=== PATIENT | female | born 2005 | race Caucasian/White ===

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

== ENCOUNTER 2023-01-31 09:32 | Outpatient (CLI) | payer OTHER, SELFPAY ==
[2023-01-31 14:59] LABS: Chlamydia DNA Amplified* NOT DETECTED (No Detected); GC DNA Amplified* NOT DETECTED (No Detected)
== END 2023-01-31 09:33 | disposition home or self-care (01) ==
PROVIDERS: PCP Nurse Practitioner Family; Visit Provider Registered Nurse
DX: Z34.91 Encounter for supervision of normal pregnancy, unspecified, first trimester (principal); Z3A.08 8 weeks gestation of pregnancy
CPT/HCPCS: 76817; 86592; 86703; 86762; 86787; 86803; 86850; 86900; 86901; 87086; 87340; 87491; 87591

== ENCOUNTER 2023-03-26 15:51 | Outpatient (CLI) | payer OTHER, SELFPAY ==
--- NOTE | 2023-03-26 16:00 | CRLHL7_ITS ---
For Patients: As a result of the Cures Act, medical imaging exams and procedure reports are released immediately into your electronic medical record. You may view this report before your referring provider. If you have questions, please contact your health care provider. INDICATION: INTRAUTERINE SYNECHIAE COMPARISON: 01/31/2023 TECHNIQUE: Real-time mast-scale imaging of the pelvis was performed. FINDINGS: Sonographic imaging demonstrates a single living intrauterine gestation. The embryo demonstrates a regular cardiac rate measuring 154 beats per minute. position transverse. Cervix is closed measuring 3.8 cm. Placenta is posterior. The estimated weight 128 grams, estimated weight 23rd percentile. BPD 32nd percentile. HC 27th percentile. AC 31st percentile. FL 44th percentile. IMPRESSION: Sonographic gestational age 15 weeks 4 days and sonographic due date of 09/13/2023. Good correlation with dates. Normal amniotic fluid without synechiae. Dictated by Nash Girard MD @ 03/27/2023 9:56:42 AM (Electronically Signed)
== END 2023-03-26 15:52 | disposition home or self-care (01) ==
PROVIDERS: PCP Nurse Practitioner Family; Visit Provider Obstetrics & Gynecology
DX: Z34.92 Encounter for supervision of normal pregnancy, unspecified, second trimester (principal); N85.6 Intrauterine synechiae; Z3A.15 15 weeks gestation of pregnancy
CPT/HCPCS: 76815; 76817

== ENCOUNTER 2023-05-21 12:12 | Outpatient (CLI) | payer OTHER, SELFPAY ==
--- NOTE | 2023-05-21 12:15 | CRLHL7_ITS ---
For Patients: As a result of the Century Cures Act, medical imaging exams and procedure reports are released immediately into your electronic medical record. You may view this report before your referring provider. If you have questions, please contact your health care provider. INDICATION: Small for gestational age. TECHNIQUE: Ultrasound OB pelvis transabdominal. Real-time mast-scale imaging of the fetus was performed without stress testing. COMPARISON: None. FINDINGS: Intrauterine gestation: Present. heart rate: 149 BPM. Presentation: Breech. Placenta: Posterior. Amniotic fluid volume single deepest pocket 3.4 cm 2/2. motion 2/2. tone 2/2. breathing movements 2/2. Umbilical artery: Normal blood flow with a systolic to diastolic ratio of 3.8 p.m. IMPRESSION: Single viable intrauterine with a biophysical profile 01/28. Dictated by Checo Araiza MD @ 05/23/2023 8:29:24 AM (Electronically Signed)
== END 2023-05-21 12:13 | disposition home or self-care (01) ==
LOC: US 12:13
PROVIDERS: PCP Nurse Practitioner Family; Visit Provider Obstetrics & Gynecology
DX: O36.5990 Maternal care for other known or suspected poor fetal growth, unspecified trimester, not applicable or unspecified (principal)
CPT/HCPCS: 76819; 76820; 86644; 86645

== ENCOUNTER 2023-05-27 08:30 | Outpatient (CLI) | payer OTHER, SELFPAY ==
--- NOTE | 2023-05-27 08:45 | CRLHL7_ITS ---
For Patients: As a result of the Century Cures Act, medical imaging exams and procedure reports are released immediately into your electronic medical record. You may view this report before your referring provider. If you have questions, please contact your health care provider. INDICATION: IUGR COMPARISON: 05/21/2023 TECHNIQUE: Real time mast scale imaging of the fetus was performed as well as color Doppler and spectral Doppler analysis of the umbilical artery. Without non-stress testing. FINDINGS: Sonographic imaging demonstrates a single living intrauterine gestation. Fetus demonstrates a regular cardiac rate of 135 beats per minute. Fetus has a breech position. The umbilical artery demonstrates adequate diastolic blood flow. The S/D ratio measures 3.5. The amniotic fluid volume appears normal and there is a single deepest pocket measurement of 4.5 cm. The fetus was active. Absent breathing movements. There was normal flexion and extension of the trunk and extremities. IMPRESSION: Biophysical profile 11/28. Dictated by Nash Girard MD @ 05/29/2023 10:48:49 AM (Electronically Signed)
== END 2023-05-27 08:31 | disposition home or self-care (01) ==
PROVIDERS: PCP Nurse Practitioner Family; Visit Provider Obstetrics & Gynecology
DX: O36.5990 Maternal care for other known or suspected poor fetal growth, unspecified trimester, not applicable or unspecified (principal)
CPT/HCPCS: 76819; 76820

== ENCOUNTER 2023-05-30 10:51 | Emergency (ER) | payer OTHER, SELFPAY ==
[2023-05-30] VITALS (10 sets, daily range): BP systolic 118–138; BP diastolic 79–90; PULSE 85–95; RESP 20; TEMP 36.8; O2SAT 96–100; BMI 40.2
--- NOTE | 2023-05-30 11:36 | ED.CHESTPAIN ---
HPI - Chest Pain General Time Seen by Provider: 11:37 Date Seen: 05/30/23 Chief Complaint: Chest Pain Stated Complaint: chest pain- 25 weeks preg. Time Seen by Provider: 05/30/23 11:19 Source: patient, family and RN notes reviewed Mode of arrival: ambulatory Limitations: no limitations History of Present Illness HPI narrative: 18-year-old at 25 we who presents today with upper chest pain. She describes this as pressure in her upper chest, started last night and has been consistent. No shortness of breath, does not feel worse with breathing, no nausea, vomiting, or diarrhea. Denies fevers, chills, cough, runny nose. Has not taken anything for this. Related Data Home Medications Medication Instructions Recorded Confirmed docosahexaenoic acid 200 mg mg PO 01/31/23 05/27/23 capsule ( DHA) aspirin 81 mg chewable tablet 81 mg PO QDAY 03/26/23 05/30/23 Previous Rx's Medication Instructions Recorded citalopram 20 mg tablet 20 mg PO QDAY #90 tabs 01/31/23 hydroxyzine pamoate 25 mg capsule 25 - 50 mg (1 - 2 x 25 mg) PO QHS 05/02/23 #60 caps Allergies Allergy/AdvReac Type Severity Reaction Status Date / Time No Known Drug Allergies Allergy Verified 05/27/23 09:55 [facility] Medical History (Updated 05/30/23 @ 13:06 by Naseem Winter MD) Postural lightheadedness ?R42 - Dizziness and giddiness (ICD-10) Pilonidal cyst with abscess ?L05.01 - Pilonidal cyst with abscess (ICD-10) Otalgia ?H92.09 - Otalgia, unspecified ear (ICD-10) Lightheadedness ?R42 - Dizziness and giddiness (ICD-10) Fever ?R50.9 - Fever, unspecified (ICD-10) Constipation (03/30/12) ?K59.00 - Constipation, unspecified (ICD-10) Bilateral patent pressure equalization tubes (03/30/12) ?Z96.22 - Myringotomy tube(s) status (ICD-10) Paronychia Surgical History (Updated 10/29/22 @ 16:34 by Thea Sullivan APRN, L[employer]ER ROOM SUPERVISOR) History of tonsillectomy ?Z90.89 - Acquired absence of other organs (ICD-10) History of removal of cyst ?Z98.890 - Other specified postprocedural states (ICD-10) History of adenectomy ?Z90.89 - Acquired absence of other organs (ICD-10) History of ear surgery ?Z98.890 - Other specified postprocedural states (ICD-10) Family History (Updated 12/06/22 @ 10:48 by Sri Morse) Father Diabetes High blood pressure Alcohol dependence High cholesterol Maternal Grandmother Diabetes Depression Liver disease Mother High blood pressure Depression Paternal Grandfather Alcohol dependence Myocardial infarction Paternal Grandmother Alcohol dependence Maternal Grandfather Alcohol dependence Social History (Updated 10/29/22 @ 16:23 by Thea Sullvian APRN, CNP) Narrative: Single, SO. No children. Non-smoker. No alcohol. No illicit drug uses. Works at [employer] in [place]. Smoking Status: Never smoker Second hand tobacco smoke exposure: No How often do you have a drink containing alcohol: never AUDIT-C Alcohol total score: 0 Non-prescribed substance use: denies use Caffeine: No Little interest or pleasure in doing things: not at all Feeling down, depressed, or hopeless: several days Are you using contraception or practicing any form of control: Yes Exam Narrative Exam Narrative: General: Well-developed and well-nourished, no acute distress Head: Atraumatic and normocephalic Eyes: Pupils are equal reactive, extraocular motions intact, conjunctiva clear ENT: External nose and ears are normal, posterior pharynx without erythema or exudate Neck: No midline cervical tenderness, full spontaneous range of motion the neck, trachea midline, no adenopathy Heart: Regular rate and rhythm no murmurs or thrills Lungs: Clear to auscultation bilaterally without wheezes or crackles Abdomen: Soft, nontender, gravid, with active bowel sounds Musculoskeletal: No tenderness, deformity, or edema Neurologic: Awake, alert, and oriented x3, no gross focal neurologic deficits, cranial nerves intact as tested Psych: Mood and affect are appropriate Skin: No rashes Const Vital Signs, click to edit/add: Vital Signs - 24 hr 05/30/23 10:57 Temperature 98.3 F Pulse Rate [Left Pulse Oximeter] 95 Respiratory Rate 20 Blood Pressure [Left Upper Arm] 138/82 Pulse Oximetry 100 Oxygen Delivery Method Room Air Course Course ED Course: Patient seen and examined, prior records reviewed. Patient presents with pressure in the upper chest starting yesterday. Consider CT PE protocol but patient has no shortness of breath, pain is not pleuritic, finally stable, clinically pulmonary embolism is unlikely but cannot PERC out and so D-dimer is ordered. Given constant pain and location, acute coronary syndrome is unlikely. Consider abdominal source such as pancreatitis or acute cholecystitis but no epigastric or right upper quadrant pain or tenderness. Symptoms are most likely related to esophageal cause, Maalox is ordered. Also order CBC and BMP. Reevaluation(s) Time of Reevaluation #1: 13:04 Reevaluation #1: Labs ordered and independently interpreted by me with negative D-dimer, normal CBC, normal basic metabolic panel. EKG independently interpreted by me normal. Troponin is negative. Patient is stable for discharge with outpatient follow-up. Vital Signs Vital signs: Initial Vital Signs Temperature 98.3 F 05/30/23 10:57 Temperature Source Temporal Artery Scan 05/30/23 10:57 Pulse Rate 95 05/30/23 10:57 Pulse Rhythm Regular 05/30/23 10:57 Respiratory Rate 20 05/30/23 10:57 Blood Pressure 138/82 05/30/23 10:57 Blood Pressure Mean 100 05/30/23 10:57 Blood Pressure Position Sitting 05/30/23 10:57 Pulse Oximetry 100 05/30/23 10:57 Oxygen Delivery Method Room Air 05/30/23 10:57 Vital Signs Temperature 98.3 F 05/30/23 10:57 Pulse Rate 95 05/30/23 10:57 Respiratory Rate 20 05/30/23 10:57 Blood Pressure 138/82 05/30/23 10:57 Pulse Oximetry 100 05/30/23 10:57 Oxygen Delivery Method Room Air 05/30/23 10:57 Temperature 98.3 F 05/30/23 10:57 Pulse Rate 95 05/30/23 10:57 Respiratory Rate 20 05/30/23 10:57 Blood Pressure 138/82 05/30/23 10:57 Pulse Oximetry 100 05/30/23 10:57 Oxygen Delivery Method Room Air 05/30/23 10:57 Medications Administered Medications: Discontinued Medications Generic Name Dose Route Start Last Admin Trade Name Freq PRN Reason Stop Dose Admin Lidocaine/Aluminum/Magnesium/Simeth 15 ml 05/30/23 11:39 05/30/23 12:01 Mag Hydrox/Aluminum Hyd/Simeth 30 Ml Oral.Susp PO 05/30/23 11:40 15 ml ONCE ONE Administration MDM - Chest Pain Lab Data Labs: Lab Results 05/30/23 Range/Units 11:56 WBC 8.62 (4.50-11.00) K/uL RBC 4.39 (4.00-5.20) m/uL Hgb 13.1 (12.0-16.0) gm/dL Hct 39.2 (33.0-51.0) % MCV 89 (80-100) fL MCH 30 (26-34) pg MCHC 33 (32-36) gm/dL RDW Coeff of Justa 12.8 (11.5-15.5) % Plt Count 297 (140-440) K/uL Neut % (Auto) 72.8 H (42.0-72.0) % Lymph % (Auto) 19.8 L (20-44) % Crook % (Auto) 5.2 (0.0-11.0) % Eos % (Auto) 0.7 (0.0-7.0) % Baso % (Auto) 0.1 (0.0-3.0) % Neut # (Auto) 6.30 (1.7-7.0) K/uL Lymph # (Auto) 1.70 (0.90-2.90) K/uL Crook # (Auto) 0.40 (0.00-0.90) K/UL Eos # (Auto) 0.06 (0.00-0.50) K/uL Baso # (Auto) 0.01 (0.00-0.30) K/uL Abs Immat Gran (auto) 0.12 (0.00-0.30) K/uL Imm/Tot Granulo (auto) 1.4 % D-Dimer Quant (PE/DVT) 0.42 (0.00-0.50) ug/ml Sodium 134 L (135-149) mmol/L Potassium 3.8 (3.6-5.1) mmol/L Chloride 104 (96-114) mmol/L Carbon Dioxide 21 (20-32) mmol/L Anion Gap 9 (7-15) mEq/L BUN 9 (5-24) mg/dL Creatinine 0.4 L (0.5-1.5) mg/dL Estimated Creat Clear 193.73 Estimated GFR 145 ml/min Glucose 71 (60-115) mg/dL Calcium 9.7 (8.4-10.6) mg/dL Magnesium 1.9 (1.5-2.6) mg/dL ECG Data Attestation: I personally reviewed and interpreted this ECG as follows: ECG interpretation date: 05/30/23 ECG interpretation time: 11:04 Prior ECG tracings: not available for review Interpretation: Normal sinus rhythm rate 77, no acute ST elevations or depressions, normal intervals, normal axis, IA 112 Discharge Plan Discharge Clinical Impression: Atypical chest pain Patient Disposition: Home, Self-Care Condition: Stable Instructions: Noncardiac Chest Pain (ED) Additional Instructions: Follow-up with your primary care doctor in 2-3 days for recheck Activity Level: No Restrictions Discharge Diet: Regular Prescriptions: No Action DHA 200 mg capsule PO citalopram 20 mg tablet 20 mg PO QDAY Qty: 90 2RF Rx Instructions: start at 10mg daily x 7d then increase to 20mg daily thereafter aspirin 81 mg tablet,chewable 81 mg PO QDAY hydroxyzine pamoate 25 mg capsule 25 - 50 mg PO QHS Qty: 60 0RF Follow Up/Referrals: Thea Sullivan, [employer]DER APPRENTICE, LOCKER ROOM SUPERVISOR [Primary Care Provider] - Stand Alone Forms: MyHealth Info Instructions
[2023-05-30] MEDS: MAG HYDROX/ALUMINUM HYD/SIMETH 30 ML ORAL.SUSP 15 ML PO (12:01)
[2023-05-30 12:13] LABS: Basophils Absolute Auto 0.01 K/uL (0.00-0.30); Basophils Percent Auto 0.1 % (0.0-3.0); Eosinophils Absolute Auto 0.06 K/uL (0.00-0.50); Eosinophils Percent Auto 0.7 % (0.0-7.0); Hematocrit 39.2 % (33.0-51.0); Hemoglobin* 13.1 gm/dL (12.0-16.0); Immature Granulocytes Abs Auto 0.12 K/uL (0.00-0.30); Immature Granulocytes Pct Auto 1.4 %; Lymphocytes Percent Auto 19.8 % (20-44); Mean Corpuscular HGB Conc 33 gm/dL (32-36); Mean Corpuscular Hemoglobin 30 pg (26-34); Mean Corpuscular Volume 89 fL (80-100); Monocytes Percent Auto 5.2 % (0.0-11.0); Neutrophils Percent Auto 72.8 % (42.0-72.0); Platelet Count* 297 K/uL (140-440); RDW Coefficient of Variation % 12.8 % (11.5-15.5); Red Blood Count 4.39 m/uL (4.00-5.20); White Blood Count* 8.62 K/uL (4.50-11.00)
[2023-05-30 12:14] LABS: Slide Review Reflex No
[2023-05-30 12:25] LABS: Chloride* 104 mmol/L (96-114); Potassium* 3.8 mmol/L (3.6-5.1); Sodium* 134 mmol/L (135-149)
[2023-05-30 12:28] LABS: Anion Gap 9 mEq/L (7-15); Blood Urea Nitrogen* 9 mg/dL (5-24); Carbon Dioxide* 21 mmol/L (20-32); Creatinine* 0.4 mg/dL (0.5-1.5); Est. Creatinine Clearance* 193.73; Estimated Glomerular Filt Rate 145 ml/min; Glucose* 71 mg/dL (60-115)
[2023-05-30 12:29] LABS: Calcium* 9.7 mg/dL (8.4-10.6); Magnesium* 1.9 mg/dL (1.5-2.6)
[2023-05-30 12:51] LABS: D Dimer Quantitative* 0.42 ug/ml (0.00-0.50)
== END 2023-05-30 13:32 | disposition home or self-care (01) ==
PROVIDERS: Emergency Provider Family Medicine; PCP Nurse Practitioner Family
DX: R07.9 Chest pain, unspecified (principal)
CPT/HCPCS: 36415; 80048; 83735; 84484; 85025; 85379; 93005; 99284; A9270

== ENCOUNTER 2023-06-03 08:18 | Outpatient (CLI) | payer OTHER, SELFPAY ==
--- NOTE | 2023-06-03 08:15 | CRLHL7_ITS ---
For Patients: As a result of the Cures Act, medical imaging exams and procedure reports are released immediately into your electronic medical record. You may view this report before your referring provider. If you have questions, please contact your health care provider. INDICATION: Small for gestational age TECHNIQUE: Real time mast scale imaging of the fetus was performed as well as color Doppler and spectral Doppler analysis of the umbilical artery. COMPARISON: 05/27/2023 FINDINGS: Sonographic imaging demonstrates a single living intrauterine gestation. Fetus demonstrates a regular cardiac rate of 133 beats per minute. Fetus has a vertex position. The placenta lies posteriorly. Amniotic fluid volume appears normal and there is a single deepest pocket of 4.1 cm. The estimated weight is 783gm which lies at the 20th %. On the prior OB ultrasound dated 05/14/2023 the estimated weight was at the 13th percentile. There is adequate diastolic blood flow within the umbilical artery. The S/D ratio measures 3.1. BPD 24th percentile. HC 8th percentile. AC 13th percentile. FL 47th percentile. The fetus was active and demonstrated normal breathing movements. There was normal flexion and extension of the trunk and extremities. IMPRESSION: Normal biophysical profile score 8/8. Sonographic gestational age 25 weeks 2 days and sonographic due date 09/14/2023. Good correlation with dates. Normal interval growth. Estimated weight 28th percentile. Abdominal circumference 13th percentile. Dictated by Nash Girard MD @ 06/03/2023 12:46:42 PM (Electronically Signed)
== END 2023-06-03 08:19 | disposition home or self-care (01) ==
PROVIDERS: PCP Nurse Practitioner Family; Visit Provider Obstetrics & Gynecology
DX: O36.5920 Maternal care for other known or suspected poor fetal growth, second trimester, not applicable or unspecified (principal); Z3A.25 25 weeks gestation of pregnancy
CPT/HCPCS: 76816; 76819; 76820

== ENCOUNTER 2023-06-10 09:46 | Outpatient (CLI) | payer OTHER, SELFPAY ==
--- NOTE | 2023-06-10 09:45 | CRLHL7_ITS ---
For Patients: As a result of the Century Cures Act, medical imaging exams and procedure reports are released immediately into your electronic medical record. You may view this report before your referring provider. If you have questions, please contact your health care provider. INDICATION: Intrauterine growth retardation. Assess well-being. TECHNIQUE: Transabdominal limited obstetrical ultrasound. Grayscale and color Doppler analysis of the umbilical artery performed. COMPARISON: June 03, 2023. FINDINGS: Single living intrauterine in vertex presentation. Posterior placenta. heart rate 131 beats per minute. Normal amniotic fluid volume. Single deepest pocket measurement 4.5 cm. The umbilical artery systolic to diastolic ratio is normal at 2.7 indicating adequate diastolic blood flow. Biophysical profile score 6/8. Two points for given each for movement, tone, and amniotic fluid. Respiratory activity was not visualized during the course of this study. IMPRESSION: Biophysical profile score 6/8. Dictated by Anderson Avendano MD @ 06/10/2023 11:36:00 AM (Electronically Signed)
== END 2023-06-10 09:47 | disposition home or self-care (01) ==
PROVIDERS: PCP Nurse Practitioner Family; Visit Provider Obstetrics & Gynecology
DX: O36.5990 Maternal care for other known or suspected poor fetal growth, unspecified trimester, not applicable or unspecified (principal)
CPT/HCPCS: 76819; 76820

== ENCOUNTER 2023-06-17 16:01 | Outpatient (CLI) | payer OTHER, SELFPAY ==
--- NOTE | 2023-06-17 16:00 | CRLHL7_ITS ---
For Patients: As a result of the Century Cures Act, medical imaging exams and procedure reports are released immediately into your electronic medical record. You may view this report before your referring provider. If you have questions, please contact your health care provider. INDICATION: IUGR COMPARISON: 06/10/2023 TECHNIQUE: Real time mast scale imaging of the fetus was performed as well as color Doppler and spectral Doppler analysis of the umbilical artery. Without non-stress testing. FINDINGS: Sonographic imaging demonstrates a single living intrauterine gestation. Fetus demonstrates a regular cardiac rate of 150 beats per minute. Fetus has a vertex position. The umbilical artery demonstrates adequate diastolic blood flow. The S/D ratio measures 2.6. The amniotic fluid volume appears normal and there is a single deepest pocket measurement of 3.9 cm. The fetus was active and demonstrated normal breathing movements. There was normal flexion and extension of the trunk and extremities. IMPRESSION: Normal biophysical profile score of 8 out of 8. Dictated by Nash Girard MD @ 06/18/2023 11:36:17 AM (Electronically Signed)
== END 2023-06-17 16:02 | disposition home or self-care (01) ==
LOC: US 16:02
PROVIDERS: PCP Nurse Practitioner Family; Visit Provider Obstetrics & Gynecology
DX: O36.5990 Maternal care for other known or suspected poor fetal growth, unspecified trimester, not applicable or unspecified (principal)
CPT/HCPCS: 76819; 76820

== ENCOUNTER 2023-06-24 09:40 | Outpatient (CLI) | payer OTHER, SELFPAY ==
--- NOTE | 2023-06-24 09:45 | CRLHL7_ITS ---
For Patients: As a result of the Century Cures Act, medical imaging exams and procedure reports are released immediately into your electronic medical record. You may view this report before your referring provider. If you have questions, please contact your health care provider. INDICATION: IUGR COMPARISON: 06/17/2023 TECHNIQUE: Real time mast scale imaging of the fetus was performed as well as color Doppler and spectral Doppler analysis of the umbilical artery. Without non-stress testing. FINDINGS: Sonographic imaging demonstrates a single living intrauterine gestation. Fetus demonstrates a regular cardiac rate of 142 beats per minute. Fetus has a vertex position. The umbilical artery demonstrates adequate diastolic blood flow. The S/D ratio measures 2.6. The amniotic fluid volume appears normal and there is a single deepest pocket measurement of 4.3 cm. The fetus was active and demonstrated normal breathing movements. There was normal flexion and extension of the trunk and extremities. IMPRESSION: Normal biophysical profile score of 8 out of 8. Dictated by Nash Girard MD @ 06/24/2023 12:07:23 PM (Electronically Signed)
== END 2023-06-24 09:41 | disposition home or self-care (01) ==
LOC: US 09:40
PROVIDERS: PCP Nurse Practitioner Family; Visit Provider Obstetrics & Gynecology
DX: O36.5990 Maternal care for other known or suspected poor fetal growth, unspecified trimester, not applicable or unspecified (principal)
CPT/HCPCS: 76819; 76820; 86592

== ENCOUNTER 2023-07-01 09:40 | Outpatient (CLI) | payer OTHER, SELFPAY ==
--- NOTE | 2023-07-01 09:45 | CRLHL7_ITS ---
For Patients: As a result of the Century Cures Act, medical imaging exams and procedure reports are released immediately into your electronic medical record. You may view this report before your referring provider. If you have questions, please contact your health care provider. INDICATION: IUGR TECHNIQUE: Limited transabdominal two-dimensional mast-scale ultrasound examination. COMPARISON: 06/24/2023 FINDINGS: There is a living fetus with gestational age of 29 weeks 5 days by LMP and 29 weeks 2 days by today`s measurements. EDC based on LMP is 09/21/2023. BPD: 7.4 cm, 29 weeks 5 days Head circumference: 27.4 cm, 29 weeks 6 days Abdominal circumference: 23.2 cm, 27 weeks 4 days Femur length: 5.7 cm, 30 weeks The weight is estimated at 1282 grams, the 12th percentile. The biophysical profile score is 6/8. A score of 0 was assigned to respiratory activity. The heart rate is measured at 138 beats per minute and the rhythm appears regular. The amniotic fluid volume is within normal limits with single deepest pocket of 3.7 cm. The placenta is posterior and superior to the cervical os. There is no evidence of previa. Cord arterial S/D = 2.5. IMPRESSION: 1. Living fetus with gestational age of her 29 weeks 5 days by LMP and 29 weeks 2 days by today`s measurements. EDC based on LMP is 09/21/2023. 2. Biophysical profile score is 6/8. A score of 0 assigned to respiratory activity. 3. weight estimated at 1282 grams, the 12th percentile. Dictated by Willian Mon MD @ 07/03/2023 12:40:15 PM (Electronically Signed)
--- OUTSIDE RECORDS SUMMARY | 2023-07-01 09:45 | XMS_ITS | Clinical Summary ---
Author Name Unknown Organization [place] Address [facility] [place] [address] Care Team Providers Care Shipping Support Clerk Name Role Phone Joseph Smith MD Primary Care Provider [phone] Teresita Jeong MD Unavailable Allergies Active Allergy Reactions Criticality Noted Date Comments No Known Allergies 2003 Medications Medication Sig Dispensed Refills Start Date End Date Status TYLENOL INFANT DROPS SOLN 100 MG/ML OR prn 0 2003 Active MOTRIN 100 MG/5ML OR SUSPIndications:Fever and other physiologic disturbances of temperature regulation prn 0 12/10/2004 Ac tive Active Problems Problem Noted Date Diagnosed Date 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 Estimated Date of Delivery Comme nts Yes 09/11/2023 Based on last me nstrual period of 12/05/2022 Encounters Date Type Department Care Team Description 05/27/2023 Telephone [facility] Maternal Medicine [facility] [address] [place] [address] Maria Fernanda Asencio GC Clinic Care Coordination - Follow-up 05/14/2023 8:45 AM ADVERTISING DISPLAY ROTATOR Office Visit [facility] Medicine [facility] [address] [place] [phone] Teresita Jeong MD Daykin, Emily C, GC Abnormal ultrasound (Primary Dx) 05/14/2023 8:30 AM ADVERTISING DISPLAY ROTATOR Office Visit [facility] Medicine [place] [address] [place] [phone] Kenna Silva MD Jones, MD Adenike Pressley Sabrina, MD BMI 40.0-44.9, adult (H) (Primary Dx); Encounter for follow-up ultrasound of anatomy; growth restriction antepartum; Abnormal ultrasound 05/14/2023 7:51 AM ADVERTISING DISPLAY ROTATOR - 05/14/2023 11:59 PM ADVERTISING DISPLAY ROTATOR Hospital Encounter [facility] [place] [address] [place] [phone] Kenna Silva MD Jones, MD Adenike Pressley Sabrina, MD Encounter for follow-up ultrasound of anatomy Discharge Disposition: Home or Self Care 05/14/2023 Travel 04/23/2023 8:30 AM CDT Office Visit [place] [address] [place] [phone] Mikala Iraheta MD Sabol, Bethany, MD Obesity in , antepartum (Primary Dx); BMI 40.0-44.9, adult (H); Encounter for follow-up ultrasound of anatomy 04/23/2023 7:53 AM CDT - 04/23/2023 11:59 PM CDT Hospital Encounter [place] [address] [place] [phone] Mikala Iraheta MD Sabol, Bethany, MD related condition, antepartum Discharge Disposition: Home or Self Care 04/23/2023 Travel 04/15/2023 PRE VISIT [place] [address] [place] [phone] Shauna Ibrahim, FÁTIMA Ultrasound (L2-BMI) from Last 3 Months Immunizations Name Administration Dates Next Due Comvax (HIB/HepB) 02/01/2004,2003,03/21/20 03 DTAP (<7y) 08/06/2007, 4,2003,2003, Influenza (IIV3) PF 04/25/2004 MMR 08/06/2007,04/25/2004 Pneumococcal (PCV 7) 02/01/2004,2003,03/21 Poliovirus, inactivated (IPV) 08/06/2007, 004,2003,2003 Varicella 08/06/2007,02/01/2004 Family History Medical History Relation Comments Diabetes Maternal Grandmother Relation Status Comments Maternal Grandmother Social History Tobacco Use Types Packs/Day Years Used Date Smoking Tobacco: Never Alcohol Use Standard Drinks/Week Comments Not Asked 0 (1 standard drink = 0.6 oz pur e alcohol) Adolescent Education Answer Date Record ed Getting School Help Needed Not on file 03/27 Estimated Date of Delivery Comme nts Yes 09/11/2023 Based on last me nstrual period of 12/05/2022 Sex and Gender Information Value Date Recorded Sex Assigned at Not on file Gender Identity Not on file Sexual Orientation Not on file Last Filed Vital Signs Vital Sign Reading Time Taken Comments Blood Pressure 110/69 05/14/2023 11:37 AM ADVERTISING DISPLAY ROTATOR Pulse 77 05/14/2023 11:37 AM ADVERTISING DISPLAY ROTATOR Temperature 36.6 ??C (97.8 ??F) 10/10/2007 9:00 AM CD T Respiratory Rate 40 2003 8:00 AM CDT Oxygen Saturation 99% 05/14/2023 11:37 AM ADVERTISING DISPLAY ROTATOR Inhaled Oxygen Concentration - - Weight 19.1 kg (42 lb) 10/10/2007 9:00 AM CDT Height 108.6 cm (3' 6.75) 10/10/2007 9:00 AM CD T Body Mass Index 16.16 10/10/2007 9:00 AM CDT Plan of Treatment Health Maintenance Due Date Last Done Comments ADVANCE CARE PLANNING 2003 ANNUAL REVIEW OF HM ORDERS 2003 CHLAMYDIA SCREENING 2003 YEARLY PREVENTIVE VISIT 08/06/2008 08/06/19 08, 04/25/2004, 02/01/2004 HIV SCREENING 2018 HEPATITIS C SCREENING 2021 MATERNAL SCREENING DISCUSSION 02/13/2023 COVID-19 Vaccine (3 - season) 2023 08/26/2020, 08/05/2020 INFLUENZA VACCINE (#1) 2023 04/25/2004, 2003 OBGCT (OB) 05/22/2023 PHQ-2 (once per calendar year) 2023 DTAP/TDAP/TD IMMUNIZATION (7 - Td or Tdap) 01/31/2025 01/31/2015, 08/06/2007, 08/06/2007, Additional history exists HEPATITIS B IMMUNIZATION Completed 004, 2003, 2003 Pneumococcal Vaccine: Pediatrics (0 to 5 Years) and At-Risk Patients (6 to 64 Years) Aged Out 02/01/2004, 2003, 2003 No longer eligible based on patient's age to complete this topic IPV IMMUNIZATION Completed 08/06/2007, , 2003, Additional history exists HPV IMMUNIZATION Completed 01/21/2017, 01/31/2015 MENINGITIS IMMUNIZATION Completed 02/15/20 20, 01/31/2015, 01/31/2015 RSV MONOCLONAL ANTIBODY Aged Out No l onger eligible based on patient's age to complete this topic RSV VACCINE ( & 60+) (No Doses Required) Completed Procedures Procedure Name Priority Date/Time Associated Diagnosis Comments LAB RESULT - HIM SCAN 05/21/2023 12:00 AM ADVERTISING DISPLAY ROTATOR [facility] US COMPREHENSIVE SINGLE F/U Routine 05/14/2023 8:53 AM ADVERTISING DISPLAY ROTATOR Encounter for follow-up ultrasound of anatomy [facility] US COMPREHENSIVE SINGLE Routine 04/23/2023 8:44 AM CDT related condition, antepartum from Last 3 Months Results * LAB RESULT - HIM SCAN (05/21/2023 12:00 AM ADVERTISING DISPLAY ROTATOR) 05/21/2023 Provider Outside NON-BEAKER LAB TE STING * [facility] US Comprehensive Single F/U (05/14/2023 8:53 AM ADVERTISING DISPLAY ROTATOR) Anatomical Region Laterality Modality Ultrasound 05/14/2023 7:56 AM ADVERTISING DISPLAY ROTATOR Impressions 05/14/2023 11:04 AM ADVERTISING DISPLAY ROTATOR IMPRESSION ----- 1. Queen intrauterine at 22w 6d gestational age here for completion of anatomy. 2. The remaining anatomic survey was completed aside from the feet, no anomalies commonly detected by ultrasound were identified within the limits of ultrasound. 3. Growth parameters and estimated weight were consistent with new diagnosis of growth restriction (AC 9%ile). 4. The amniotic fluid volume appeared normal. 5. The umbilical artery dopplers were within normal limits. 6. The NST was reassuring for gestational age. Narrative 05/14/2023 11:04 AM ADVERTISING DISPLAY ROTATOR ?Comp Follow Up ----- Pat. Name: AMBER MORSE ? Study Date: ??05/14/2023 7:56am Pat. NO: ??[id number] ?Referring ??: MIKALA IRAHETA Site: [facility] ? Finance Teacher: Kitty Gray RDMS : ??2003 ?Age: ?? 18 ----- INDICATION ----- Reevaluate suboptimal anatomy METHOD ----- Transabdominal ultrasound examination. View: Suboptimal view: limited by maternal body habitus. Suboptimal view: limited by position ----- Queen . Number of fetuses: 1 DATING ----- ? Date ?Details ?Gest. age ?KAITLYNN LMP ?12/05/2022 ? 22 w + 6 d ? 09/11/2023 Prior assessment ? 01/31/2023 ? GA: 7 w + 3 d ?22 w + 1 d ? 09/16/2023 U/S ? 05/14/2023 ? based upon AC, BPD, Femur, HC ? 22 w + 0 d ? 09/17/2023 Assigned dating ?Dating performed on 04/23/2023, based on the LMP ?22 w + 6 d ? 09/11/2023 GENERAL EVALUATION ----- Cardiac activity present. FHR 129 bpm. movements visualized. Presentation cephalic. Placenta Posterior. Umbilical cord 3 vessel cord. Amniotic fluid Amount of AF: normal. MVP 3.8 cm. BIOMETRY ----- Main Biometry: BPD ?51.9 ?mm ? 21w 5d ?Hadlock OFD ?71.5 ?mm ? 22w 1d ?Nicolaides HC ?198.1 ?mm ?22w 0d ?Hadlock Cerebellum tr ?23.7 ? mm ?21w 6d ?Nicolaides AC ?165.0 ?mm ?21w 4d ?9% ?Hadlock Femur ?39.5 ? mm ?22w 5d ?Hadlock Weight Calculation: EFW ? 472 ? g ? 13% ?Hadlock EFW (lb,oz) ? 1 lb 1 ?oz EFW by ?Hadlock ([id number]) Head / Face / Neck Biometry: English Composition Instructor ? 6.7 ? mm CM ?6.1 ? mm Nasal bone ? 7.2 ? mm ANATOMY ----- The following structures appear normal: Head / Neck ? Cranium. Head size. Head shape. Lateral ventricles. Midline falx. Cavum septi pellucidi. Cerebellum. Cisterna magna. Thalami. Face ? Lips. Profile. Nose. Maxilla. Mandible. Orbits. Lens. Heart / Thorax ?4-chamber view. RVOT view. LVOT view. Aortic arch view. Ductal arch view. 7-wqtcbe-uhufdkb view. ? Diaphragm. Abdomen ? Stomach. Kidneys. Bladder. Spine ?Cervical spine. Thoracic spine. Lumbar spine. Sacral spine. The following structures could not be adequately visualized: Extremities / Skeleton ?Right foot. Left foot. Gender: male. DOPPLER ----- Umbilical Artery: normal PI ?1.32 ?78% ?Gregory HR ?157 ? bpm MATERNAL STRUCTURES ----- Cervix ?Not visualized Right Ovary ?Not examined Left Ovary ?Not examined NON STRESS TEST ----- Test duration 27 min. Baseline FHR 135 bpm. Baseline variability: moderate. Accelerations: present. Decelerations: present, isolated variable. Uterine activity: absent RECOMMENDATION ----- Thank-you for referring your patient for ultrasound assessment. I discussed the findings on today's ultrasound with the patient. I reviewed the limitations of ultrasound. The findings on today's ultrasound are consistent with growth restriction (FGR). We reviewed that we consider a to be affected by FGR when the overall EFW is <10th% or if the abdominal circumference (AC) is < 10th% as they have been found to be equally predictive of SGA. We discussed the potential etiologies of FGR including incorrect dating, constitutional, infectious etiologies (specifically CMV), genetic and structural abnormalities as well as placental and umbilical cord abnormalities. Her dating was reviewed (LMP c/w tri US). She had a low risk cell free DNA for genetic screening. She is otherwise healthy and has no significant medical problems. There is no family history of congential anomalies or genetic syndromes. 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 Her blood pressure today was within normal limits. Of note, Meckinzy was only 6 Ib when she was born at term. We reviewed the possible work up for FGR. I reviewed the limitations of ultrasound and we discussed the availability of amniocentesis for the precise diagnosis of chromosomal abnormalities as well as infectious studies including the associated procedure-related risk of loss of approximately 1/400. We also reviewed the availability of cell free DNA. After counseling the patient declined invasive testing. CMV serologies are not recommended in the absence of risk factors/ultrasound findings but CMV PCR could be sent if amniocentesis is pursued. 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 Additionally, if a patient delivers at <34 weeks for placental insufficiency, including FGR, testing for antiphospholipid antibody syndrome is recommended with beta 2 glycoprotein IgG & IgM, cardiolipin antibody IgG & IgM and lupus anticoagulant. Lastly, we reviewed that regardless of the etiology of FGR, we recommend additional monitoring due to the increased risk for stillbirth and that the ultimate goal of management rests on balancing the risk of stillbirth with the risks of prematurity. The recommended surveillance and management of pregnancies complicated by FGR includes serial assessment of growth (every 3 weeks) in addition to weekly UA Dopplers and surveillance. Timing of delivery will depend on Doppler findings, amniotic fluid, monitoring, and interval growth; we will make specific recommendations as the progresses. We reviewed kick counts and calling guidelines. We will plan to have her complete weekly UA Dopplers/ surveillance locally in [place] and return to our clinic every 3 weeks for a repeat growth assessment and UA dopplers/ surveillance. Return to primary provider for continued care. If you have questions regarding today's evaluation or if we can be of further service, please contact the [facility]. anomalies may be present but not detected At the end of our discussion Ms. Morse voiced understanding of the plan of care and stated all of her questions had been answered. Thank you for the opportunity to participate in the care of your patient. Please do not hesitate to contact us if you may have any questions or concerns. I spent a total of 30 minutes on the date of this encounter including preparing to see the patient (reviewing medical records/tests), counseling and discussing the plan of care, documenting the visit in the electronic medical record, and communicating with other health managed care manager and/or care coordination. Please see note for details. Procedure Note Teresita Jeong MD - 05/14/2023 Comp Follow Up ----- Pat. Name: AMBER MORSE Study Date: 05/14/2023 7:56am Pat. NO: [id number] Referring MD: MIKALA IRAHETA Site: [facility] Finance Teacher: Kitty Gray RDMS : 2005 Age: 18 ----- INDICATION ----- Reevaluate suboptimal anatomy METHOD ----- Transabdominal ultrasound examination. View: Suboptimal view: limited bymaternal body habitus. Suboptimal view: limited by position ----- Queen . Number of fetuses: 1 DATING ----- DateDetailsGest. age KAITLYNN LMP w + 6 d 09/11/2023 Prior assessment 01/31/2023 GA: 7 w +3 d22 w + 1 d 09/16/2023 U/S 3based upon AC, BPD, Femur, HC22 w + 0 d 09/17/2023 Assigned dating Dating performed on 04/23/2023, based onthe LMP 22 w+ 6 d 09/11/2023 GENERAL EVALUATION ----- Cardiac activity present. FHR 129 bpm. movements visualized. Presentation cephalic. Placenta Posterior. Umbilical cord 3 vessel cord. Amniotic fluid Amount of AF: normal. MVP 3.8 cm. BIOMETRY ----- Main Biometry: BPD 51.9 mm21w 5d Hadlock OFD 71.5 mm22w 1d Nicolaides HC 198.1 mm22w 0d Hadlock Cerebellum tr 23.7 mm21w 6d Nicolaides AC 165.0 mm21w 4d 9% Hadlock Femur 39.5 mm22w 5d Hadlock Weight Calculation: EFW 472 g13% Hadlock EFW (lb,oz) 1 lb 1 oz EFW by Hadlock ([id number]) Head / Face / Neck Biometry: English Composition Instructor 6.7 mm CM 6.1 mm Nasal bone 7.2 mm ANATOMY ----- The following structures appear normal: Head / Neck Cranium. Head size. Head shape.Lateral ventricles. Midline falx. Cavum septi pellucidi. Cerebellum.Cisterna magna. Thalami. Face Lips. Profile. Nose. Maxilla.Mandible. Orbits. Lens. Heart / Thorax 4-chamber view. RVOT view. LVOT view.Aortic arch view. Ductal arch view. 0-owhxgj-udgoljh view. Diaphragm. Abdomen Stomach. Kidneys. Bladder. Spine Cervical spine. Thoracic spine.Lumbar spine. Sacral spine. The following structures could not be adequately visualized: Extremities / Skeleton Right foot. Left foot. Gender: male. DOPPLER ----- Umbilical Artery: normal PI 1.3278% Gregory HR 157 bpm MATERNAL STRUCTURES ----- Cervix Not visualized Right Ovary Not examined Left Ovary Not examined NON STRESS TEST ----- Test duration 27 min. Baseline FHR 135 bpm. Baseline variability:moderate. Accelerations: present. Decelerations: present, isolatedvariable. Uterine activity: absent RECOMMENDATION ----- Thank-you for referring your patient for ultrasound assessment. I discussed the findings on today's ultrasound with the patient. Ireviewed the limitations of ultrasound. The findings on today's ultrasound are consistent with growthrestriction (FGR). We reviewed that we consider a to be affectedby FGR when the overall EFW is <10th% or if the abdominal circumference (AC) is < 10th% as theyhave been found to be equally predictive of SGA. We discussed thepotential etiologies of FGR including incorrect dating, constitutional, infectious etiologies(specifically CMV), genetic and structural abnormalities as well asplacental and umbilical cord abnormalities. Her dating was reviewed (LMP c/w US). She had a low risk cell freeDNA for genetic screening. She is otherwise healthy and has no significantmedical problems. 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 Her blood pressure today was within normal limits. Of note, Meckinzlamar was only6 Ib when she was born at term. We reviewed the possible work up for FGR. I reviewed the limitations ofultrasound and we discussed the availability of amniocentesis for theprecise diagnosis of chromosomal abnormalities as well as infectious studies including theassociated procedure-related risk of loss of approximately1/400. We also reviewed the availability of cell free DNA. After counseling the patient declinedinvasive testing. CMV serologies are not recommended in the absence ofrisk factors/ultrasound findings but CMV PCR could be sent if amniocentesis is pursued. Given her report ofmultiple upper respiratory infections and working in high risk daycaresetting, she did opt to proceed with maternal CMV infectious studies today. Additionally, if apatient delivers at <34 weeks for placental insufficiency, including FGR,testing for antiphospholipid antibody syndrome is recommended with beta 2 glycoprotein IgG & IgM,cardiolipin antibody IgG & IgM and lupus anticoagulant. Lastly, we reviewed that regardless of the etiology of FGR, we recommendadditional monitoring due to the increased risk for stillbirth and thatthe ultimate goal of management rests on balancing the risk of stillbirth with the risks ofprematurity. The recommended surveillance and management of pregnanciescomplicated by FGR includes serial assessment of growth (every 3 weeks) in addition toweekly UA Dopplers and surveillance. Timing of delivery willdepend on Doppler findings, amniotic fluid, monitoring, and interval growth; we will makespecific recommendations as the progresses. We reviewed fetalkick counts and calling guidelines. We will plan to have her complete weekly UA Dopplers/antenatalsurveillance locally in [place] and return to our clinic every 3 weeksfor a repeat growth assessment and UA dopplers/ surveillance. Return to primary provider for continued care. If you have questions regarding today's evaluation or if we can be offurther service, please contact the [facility]. anomalies may be present but not detected At the end of our discussion Ms. Morse voiced understanding of the planof care and stated all of her questions had been answered. Thank you forthe opportunity to participate in the care of your patient. Please do not hesitate to contactus if you may have any questions or concerns. I spent a total of 30 minutes on the date of this encounter includingpreparing to see the patient (reviewing medical records/tests), counselingand discussing the plan of care, documenting the visit in the electronic medical record, andcommunicating with other health managed care manager and/or carecoordination. Please see note for details. IMPRESSION ----- 1. Queen intrauterine at 22w 6d gestational age here forcompletion of anatomy. 2. The remaining anatomic survey was completed aside from the fetalfeet, no anomalies commonly detected by ultrasound were identifiedwithin the limits of ultrasound. 3. Growth parameters and estimated weight were consistent with newdiagnosis of growth restriction (AC 9%ile). 4. The amniotic fluid volume appeared normal. 5. The umbilical artery dopplers were within normal limits. 6. The NST was reassuring for gestational age. Kenna Silva MD [facility] US ORDERABLE S * [facility] US Comprehensive Single (04/23/2023 8:44 AM CDT) Anatomical Region Laterality Modality Ultrasound 04/23/2023 7:58 AM CDT Impressions 04/23/2023 8:54 AM CDT IMPRESSION ----- 1. Queen intrauterine at 19w 6d gestational age here for evaluation of anatomy. 2. No anomalies commonly detected by ultrasound or soft markers of aneuploidy were identified in the detailed anatomic survey within the limits of ultrasound, however some views were suboptimal, as described above. 3. Growth parameters and estimated weight were consistent with established dates. 4. The amniotic fluid volume appeared normal. 5. On transabdominal imaging the cervix appears long and closed. Narrative 04/23/2023 8:54 AM CDT ?Comprehensive ----- Pat. Name: AMBER MORSE ? Study Date: ??04/23/2023 7:58am Pat. NO: ??[id number] ?Referring ??MD: MIKALA IRAHETA Site: [facility] ? Finance Teacher: Kityt Gray RDMS : ??2005 ?Age: ?? 18 ----- INDICATION ----- Obesity - BMI 40.7, low-risk NIPT METHOD ----- Transabdominal ultrasound examination. View: Suboptimal view: limited by maternal body habitus ----- Queen . Number of fetuses: 1 DATING ----- ? Date ?Details ?Gest. age ?KAITLYNN LMP ?12/05/2022 ? 19 w + 6 d ? 09/11/2023 Prior assessment ? 01/31/2023 ? GA: 7 w + 3 d ?19 w + 1 d ? 09/16/2023 U/S ? 04/23/2023 ? based upon AC, BPD, Femur, HC ?19 w + 3 d ? 09/14/2023 Assigned dating ?Dating performed on 04/23/2023, based on the LMP ?19 w + 6 d ? 09/11/2023 GENERAL EVALUATION ----- Cardiac activity present. FHR 144 bpm. movements present. Presentation cephalic. Placenta Posterior, No Previa, > 2 cm from internal os. Umbilical cord 3 vessel cord. Amniotic fluid Amount of AF: normal. MVP 6.0 cm. BIOMETRY ----- Main Biometry: BPD ?45.3 ?mm ? 19w 5d ?Mirna CRAIN ?57.0 ?mm ? 18w 5d ?Nicolaides HC ?163.4 ?mm ?19w 1d ?Hadlock Cerebellum tr ?18.6 ? mm ?18w 2d ?Nicolaides AC ?132.0 ?mm ?18w 5d ?13% ?Hadlock Femur ?32.7 ? mm ?20w 1d ?Hadlock Humerus ?32.2 ?mm ? 20w 6d ?Asif Weight Calculation: EFW ? 290 ? g ? 22% ?Hadlock EFW (lb,oz) ? 0 lb 10 ? oz EFW by ?Hadlock ([id number]) Head / Face / Neck Biometry: English Composition Instructor ? 7.6 ? mm CM ?5.0 ? mm Nuchal fold ? 4.3 ? mm ANATOMY ----- The following structures appear normal: Head / Neck ? Cranium. Head size. Head shape. Lateral ventricles. Choroid plexus. Midline falx. Cavum septi pellucidi. Cerebellum. Cisterna magna. ? Parenchyma. Thalami. Vermis. ? Neck. Nuchal fold. Face ? Lips. Heart / Thorax ?RVOT view. LVOT view. Situs. Bicaval view. Superior vena cava. Inferior vena cava. 3-vessel view. Cardiac position. Cardiac size. Cardiac ? rhythm. ? Right lung. Left lung. Abdomen ? Abdominal wall. Cord insertion. Stomach. Kidneys. Bladder. Liver. Bowel. Genitals. Spine ?Cervical spine. Thoracic spine. Lumbar spine. Extremities / Skeleton ?Right arm. Right hand. Left arm. Left hand. Right leg. Left leg. The following structures could not be adequately visualized: Heart / Thorax ?4-chamber view. Aortic arch view. 0-hjtyvw-iiblbeq view. ? Diaphragm. Spine ?Sacral spine. Extremities / Skeleton ?Right foot. Left foot. The following structures could not be visualized: Face ? Profile. Nose. Maxilla. Mandible. Orbits. Lens. Heart / Thorax ?Ductal arch view. Gender: male. MATERNAL STRUCTURES ----- Cervix ?Visualized ? Appearance: Appears Closed ? Cervical length 37.0 mm Right Ovary ?Not visualized Left Ovary ?Not visualized RECOMMENDATION ----- Thank-you for referring your patient for ultrasound assessment. I discussed the findings on today's ultrasound with the patient. I reviewed the limitations of ultrasound both in detecting aneuploidy and structural abnormalities. Ultrasound, when views completed, can routinely detect 80-90% of structural abnormalities. She had low risk cell free DNA for genetic screening this . Follow-up is scheduled here in three weeks to reassess anatomy that was suboptimally seen today. Once anatomy is complete, evaluation of growth at 28 and 34 weeks is recommended due to BMI > 40. Weekly testing is also recommended at 34 weeks. I presume these follow-ups will be done in your office, but can be scheduled here if preferred. Return to primary provider for continued care. If you have questions regarding today's evaluation or if we can be of further service, please contact the [facility]. anomalies may be present but not detected I spent a total of 15 minutes on the date of this encounter including preparing to see the patient (reviewing medical records/tests), counseling and discussing the plan of care, documenting the visit in the electronic medical record, and communicating with other health managed care manager and/or care coordination. Please see note for details. Procedure Note Kenna Silva MD - 04/23/2023 Comprehensive ----- Pat. Name: AMBER MORSE Study Date: 04/23/2023 7:58am Pat. NO: [id number] Referring MD: MIKALA IRAHETA Site: [facility] Finance Teacher: Kitty Gray RDMS : 2005 Age: 18 ----- INDICATION ----- Obesity - BMI 40.7, low-risk NIPT METHOD ----- Transabdominal ultrasound examination. View: Suboptimal view: limited bymaternal body habitus ----- Queen . Number of fetuses: 1 DATING ----- DateDetailsGest. age KAITLYNN LMP w + 6 d 09/11/2023 Prior assessment 01/31/2023 GA: 7 w +3 d19 w + 1 d 09/16/2023 U/S 04/23/2023ased upon AC, BPD, Femur, HC19 w + 3 d 09/14/2023 Assigned dating Dating performed on 04/23/2023, based onthe LMP 19 w+ 6 d 09/11/2023 GENERAL EVALUATION ----- Cardiac activity present. FHR 144 bpm. movements present. Presentation cephalic. Placenta Posterior, No Previa, > 2 cm from internal os. Umbilical cord 3 vessel cord. Amniotic fluid Amount of AF: normal. MVP 6.0 cm. BIOMETRY ----- Main Biometry: BPD 45.3 mm19w 5d Hadlock OFD 57.0 mm18w 5d Nicolaides HC 163.4 mm19w 1d Hadlock Cerebellum tr 18.6 mm18w 2d Nicolaides AC 132.0 mm18w 5d 13% Hadlock Femur 32.7 mm20w 1d Hadlock Humerus 32.2 mm20w 6d Asif Weight Calculation: EFW 290 g22% Hadlock EFW (lb,oz) 0 lb 10 oz EFW by Hadlock ([id number]) Head / Face / Neck Biometry: English Composition Instructor 7.6 mm CM 5.0 mm Nuchal fold 4.3 mm ANATOMY ----- The following structures appear normal: Head / Neck Cranium. Head size. Head shape.Lateral ventricles. Choroid plexus. Midline falx. Cavum septi pellucidi.Cerebellum. Cisterna magna. Parenchyma. Thalami. Vermis. Neck. Nuchal fold. Face Lips. Heart / Thorax RVOT view. LVOT view. Situs. Bicavalview. Superior vena cava. Inferior vena cava. 3-vessel view. Cardiacposition. Cardiac size. Cardiac rhythm. Right lung. Left lung. Abdomen Abdominal wall. Cord insertion.Stomach. Kidneys. Bladder. Liver. Bowel. Genitals. Spine Cervical spine. Thoracic spine.Lumbar spine. Extremities / Skeleton Right arm. Right hand. Left arm. Lefthand. Right leg. Left leg. The following structures could not be adequately visualized: Heart / Thorax 4-chamber view. Aortic arch view.1-obzamh-dlszgcj view. Diaphragm. Spine Sacral spine. Extremities / Skeleton Right foot. Left foot. The following structures could not be visualized: Face Profile. Nose. Maxilla. Mandible.Orbits. Lens. Heart / Thorax Ductal arch view. Gender: male. MATERNAL STRUCTURES ----- Cervix Visualized Appearance: Appears Closed Cervical length 37.0 mm Right Ovary Not visualized Left Ovary Not visualized RECOMMENDATION ----- Thank-you for referring your patient for ultrasound assessment. I discussed the findings on today's ultrasound with the patient. Ireviewed the limitations of ultrasound both in detecting aneuploidy andstructural abnormalities. Ultrasound, when views completed, can routinely detect 80-90% of structuralabnormalities. She had low risk cell free DNA for genetic screeningthis . Follow-up is scheduled here in three weeks to reassess anatomy that wassuboptimally seen today. Once anatomy is complete, evaluation of fetalgrowth at 28 and 34 weeks is recommended due to BMI > 40. Weekly testing is alsorecommended at 34 weeks. I presume these follow-ups will be done in [place], but can be scheduled here if preferred. Return to primary provider for continued care. If you have questions regarding today's evaluation or if we can be offurther service, please contact the [facility]. anomalies may be present but not detected I spent a total of 15 minutes on the date of this encounter includingpreparing to see the patient (reviewing medical records/tests), counselingand discussing the plan of care, documenting the visit in the electronic medical record, andcommunicating with other health managed care manager and/or carecoordination. Please see note for details. IMPRESSION ----- 1. Queen intrauterine at 19w 6d gestational age here forevaluation of anatomy. 2. No anomalies commonly detected by ultrasound or soft markers ofaneuploidy were identified in the detailed anatomic survey withinthe limits of ultrasound, however some views were suboptimal, as described above. 3. Growth parameters and estimated weight were consistent withestablished dates. 4. The amniotic fluid volume appeared normal. 5. On transabdominal imaging the cervix appears long and closed. Mikala Iraheta MD [facility] US ORDERABLE S from Last 3 Months Care Teams Shipping Support Clerk Relationship Specialty Start Date End Date Joseph Smith MD [address] [facility] [place] [address] PCP - General 03 Teresita Jeong MD [address] [facility] [address] [place] [address] Assigned OBGYN Provider 05/24/23
--- OUTSIDE RECORDS SUMMARY | 2023-07-01 09:45 | XMS_ITS | Referral Summary ---
Author Name Unknown Organization [place] Address [address] [place] [address] Care Team Providers Care Radiation Oncology Manager Name Role Phone Joseph Smith MD Primary Care Provider Teresita Jeong MD Unavailable Encounters Date Type Department Care Team Description 05/27/[address] [facility] Medicine [facility] [address] [place] [phone] Maria Fernanda Asencio GC Clinic Care Coordination - Follow-up 05/14/2023 8:45 AM DRY WALL INSTALLATIONS MECHANIC Office Visit [facility] Medicine [facility] [address] [place] [phone] Teresita Jeong MD Daykin, Emily C, GC Abnormal ultrasound (Primary Dx) 05/14/2023 Travel 05/14/2023 8:30 AM DRY WALL INSTALLATIONS MECHANIC Office Visit [facility] Medicine [facility] [address] [facility] [address] [place] [phone] Kenna Silva MD Jones, Cresta Wedel, MD Burn, Sabrina, MD BMI 40.0-44.9, adult (H) (Primary Dx); Encounter for follow-up ultrasound of anatomy; growth restriction antepartum; Abnormal ultrasound 05/14/2023 7:51 AM DRY WALL INSTALLATIONS MECHANIC - 05/14/2023 11:59 PM DRY WALL INSTALLATIONS MECHANIC Hospital Encounter [facility] Medicine [place] [address] [facility] [address] [place] [phone] Kenna Silva MD Jones, Cresta Wedel, MD Burn, Sabrina, MD Encounter for follow-up ultrasound of anatomy Discharge Disposition: Home or Self Care 04/23/2023 Travel 04/23/2023 8:30 AM CDT Office Visit [facility] [place] [address] [facility] [address] [place] [phone] Mikala Iraheta MD Sabol, Bethany, MD Obesity in , antepartum (Primary Dx); BMI 40.0-44.9, adult (H); Encounter for follow-up ultrasound of anatomy 04/23/2023 7:53 AM CDT - 04/23/2023 11:59 PM CDT Hospital Encounter [place] [address] [facility] [address] [place] [phone] Mikala Iraheta MD Sabol, Bethany, MD related condition, antepartum Discharge Disposition: Home or Self Care 04/15/2023 PRE VISIT [place] [address] [phone] Shauna Ibrahim, RN Ultrasound (L2-BMI) from Last 3 Months Allergies Active Allergy Reactions Criticality Noted Date [...] on last me nstrual period of 12/05/2022 Immunizations Name Administration Dates Next Due Comvax (HIB/HepB) 02/01/2004,2003,03/21/20 03 DTAP (<7y) 08/06/2007, 4,2003,2003, Influenza (IIV3) PF 04/25/2004 MMR 08/06/2007,04/25/2004 Pneumococcal (PCV 7) 02/01/2004,2003,03/21 Poliovirus, inactivated (IPV) 08/06/2007, 004,2003,2003 Varicella 08/06/2007,02/01/2004 Social History Tobacco Use Types Packs/Day Years [...] Comments Blood Pressure 110/69 05/14/2023 11:37 AM DRY WALL INSTALLATIONS MECHANIC Pulse 77 05/14/2023 11:37 AM DRY WALL INSTALLATIONS MECHANIC Temperature 36.6 ??C (97.8 ??F) 10/10/2007 9:00 AM CD T Respiratory Rate 40 2003 8:00 AM CDT Oxygen Saturation 99% 05/14/2023 11:37 AM DRY WALL INSTALLATIONS MECHANIC Inhaled Oxygen Concentration - - Weight 19.1 kg (42 lb) 10/10/2007 9:00 AM CDT Height 108.6 cm (3' 6.75) 10/10/2007 9:00 AM CD T Body Mass Index 16.16 10/10/2007 9:00 AM CDT Plan of Treatment Not on file Procedures Procedure Name Priority Date/Time Associated Diagnosis Comments LAB RESULT - HIM SCAN 05/21/2023 12:00 AM DRY WALL INSTALLATIONS MECHANIC [facility] US COMPREHENSIVE SINGLE F/U Routine 05/14/2023 8:53 AM DRY WALL INSTALLATIONS MECHANIC Encounter for follow-up ultrasound of anatomy [facility] US COMPREHENSIVE SINGLE Routine 04/23/2023 8:44 AM CDT related condition, antepartum from Last 3 Months Results * LAB RESULT - HIM SCAN (05/21/2023 12:00 AM DRY WALL INSTALLATIONS MECHANIC) 05/21/2023 Provider Outside NON-BEAKER LAB TE STING * MFM US Comprehensive Single F/U (05/14/2023 8:53 AM DRY WALL INSTALLATIONS MECHANIC) Anatomical Region Laterality Modality Ultrasound 05/14/2023 7:56 AM DRY WALL INSTALLATIONS MECHANIC Impressions 05/14/2023 11:04 AM DRY WALL INSTALLATIONS MECHANIC IMPRESSION ----- 1. Queen intrauterine at 22w [...] for gestational age. Narrative 05/14/2023 11:04 AM DRY WALL INSTALLATIONS MECHANIC ?Comp Follow Up ----- Pat. Name: GABRIEL MORSE ? Study Date: ??05/14/2023 7:56am Pat. NO: ??[id number] ?Referring ??: MIKALA IRAHETA Site: [facility] Head Assistant Wet Process: Kitty Gray : ??2005 ?Age: ?? 18 ----- INDICATION [...] Biometry: BPD ?51.9 ?mm ? 21w 5d ?Mirna CRAIN ?71.5 ?mm ? 22w 1d ?Nicolaides HC ?198.1 ?mm ?22w 0d ?Hadlock Cerebellum tr ?23.7 ? mm ?21w 6d ?Nicolaides AC ?165.0 ?mm ?21w 4d ?9% ?Hadlock Femur ?39.5 ? mm ?22w 5d ?Hadlock Weight Calculation: EFW ? 472 ? g ? 13% ?Hadlock EFW (lb,oz) ? 1 lb 1 ?oz EFW by ?Hadlock ([id number]) Head / Face / Neck Biometry: Telephone Station Installer ? 6.7 ? mm CM ?6.1 ? [...] view. Aortic arch view. Ductal arch view. 0-bftuum-yhdnpkd view. ? Diaphragm. Abdomen ? Stomach. Kidneys. [...] complete weekly UA Dopplers/ surveillance locally in [place] and return to our clinic every 3 [...] medical record, and communicating with other health family day carer and/or care coordination. Please see note for details. Procedure Note Teresita Jeong MD - 05/14/2023 Comp Follow Up ----- Pat. Name: GABRIEL MORSE Study Date: 05/14/2023 7:56am Pat. NO: [id number] Referring MD: MIKALA IRAHETA Site: [facility] Head Assistant Wet Process: Kitty Gray RDMS : 2005 Age: 18 ----- INDICATION ----- Reevaluate suboptimal anatomy METHOD ----- Transabdominal ultrasound examination. View: Suboptimal view: limited bymaternal body habitus. Suboptimal view: limited by position ----- Queen . Number of fetuses: 1 DATING ----- DateDetailsGest. age KAITLYNN LMP w + 6 d 09/11/2023 Prior assessment 01/31/2023 GA: 7 w +3 d22 w + 1 d 09/16/2023 U/S 05/14/2023ased upon AC, BPD, Femur, HC22 w + [...] 1 lb 1 oz EFW by Hadlock ([id number]) Head / Face / Neck Biometry: Telephone Station Installer 6.7 mm CM 6.1 mm Nasal bone 7.2 mm ANATOMY ----- The following structures appear normal: Head / Neck Cranium. Head size. Head shape.Lateral ventricles. Midline falx. Cavum septi pellucidi. Cerebellum.Cisterna magna. Thalami. Face Lips. Profile. Nose. Maxilla.Mandible. Orbits. Lens. Heart / Thorax 4-chamber view. RVOT view. LVOT view.Aortic arch view. Ductal arch view. 5-xahrol-mqcilmy view. Diaphragm. Abdomen Stomach. Kidneys. Bladder. 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 Please see note for details. [...] reassuring for gestational age. Kenna Silva MD [facility] US ORDERABLE S * [facility] Comprehensive Single (04/23/2023 8:44 AM CDT) Anatomical [...] 8:54 AM CDT ?Comprehensive ----- Pat. Name: GABRIEL MORSE ? Study Date: ??04/23/2023 7:58am Pat. NO: ??[id number] ?Referring ??MD: MIKALA IRAHETA Site: ??[facility] Head Assistant Wet Process: Kitty Gray RDMS : ??2005 ?Age: ?? [...] Biometry: BPD ?45.3 ?mm ? 19w 5d ?Hadlock OFD ?57.0 ?mm ? 18w 5d ?Nicolaides HC ?163.4 ?mm ?19w 1d ?Hadlock Cerebellum tr ?18.6 ? mm ?18w 2d ?Nicolaides AC ?132.0 ?mm ?18w 5d ?13% ?Hadlock Femur ?32.7 ? mm ?20w 1d ?Hadlock Humerus ?32.2 ?mm ? 20w 6d ?Asif Weight Calculation: EFW ? 290 ? g ? 22% ?Hadlock EFW (lb,oz) ? 0 lb 10 ? oz EFW by ?Hadlock ([id number]) Head / Face / Neck Biometry: Telephone Station Installer ? 7.6 ? mm CM ?5.0 ? [...] / Thorax ?4-chamber view. Aortic arch view. 0-exykjs-vkgdcxl view. ? Diaphragm. Spine ?Sacral spine. Extremities [...] medical record, and communicating with other health family day carer and/or care coordination. Please see note for details. Procedure Note Kenna Silva MD - 04/23/2023 Comprehensive ----- Pat. Name: GABRIEL MORSE Study Date: 04/23/2023 7:58am Pat. NO: [id number] Referring MD: MIKALA IRAHETA Site: [facility] Miller Head Assistant Wet Process: Kitty Gray RDMS : 2005 Age: 18 [...] 0 lb 10 oz EFW by Hadlock ([id number]) Head / Face / Neck Biometry: Telephone Station Installer 7.6 mm CM 5.0 mm Nuchal fold [...] Heart / Thorax 4-chamber view. Aortic arch view.3-jmnyet-uoaiwcm view. Diaphragm. Spine Sacral spine. Extremities / [...] electronic medical record, andcommunicating with other health family day carer and/or carecoordination. Please see note for details. [...] appears long and closed. Mikala Iraheta MD [facility] US ORDERABLE S from Last 3 Months Care Teams Radiation Oncology Manager Relationship Specialty Start Date End Date Joseph Smith MD [address] [facility] [address] [place] [address] PCP - General 03 Teresita Jeong MD [address] [place] [address] Assigned OBGYN Provider 05/24/23
--- OUTSIDE RECORDS SUMMARY | 2023-07-01 09:45 | XMS_ITS | Encounter Summary ---
Author Name Unknown Organization [place] Address [address] [facility] [place] [address] Care Team Providers Care Sterile Tech Name Role Phone Joseph Smith MD Primary Care Provider [phone] Kenna Silva MD Unavailable [phone] Encounter Details Date Type Department Care Team (Latest Contact Info) Description 05/14/2023 Travel Social History Tobacco Use Types Packs/Day Years [...] on file Sexual Orientation Not on file documented as of this encounter Plan of Treatment Not on file documented as of this encounter Visit Diagnoses Not on filedocumented in this encounter Care Teams Sterile Tech Relationship Specialty Start Date End Date Joseph Smith MD [address] [facility] [address] [place] [address] PCP - General 03 Kenna Silva MD [address] [facility] [address] [place] [address] Assigned OBGYN Provider 05/03/23 documented as of this encounter
--- OUTSIDE RECORDS SUMMARY | 2023-07-01 09:45 | XMS_ITS | Encounter Summary ---
Author Name Unknown Organization [place] Address [address] [place] [place] [address] Care Team Providers Care Mixer And Scaler Name Role Phone Joseph Smith MD Primary Care Provider [phone] Teresita Jeong MD Unavailable Reason for Visit * Reason Onset Date Comments Clinic Care Coordination - Follow-up 05/27/2023 Encounter Details Date Type Department Care Team (Late st Contact Info) Description 05/27/2023 Telephone [facility] [place] [address] [facility] [address] [place] [address] Maria Fernanda Asencio, [address] [place] [address] [address] [place] [address] Clinic Care Coordination - Follow-up Social History Tobacco Use Types Packs/Day Years [...] on filedocumented in this encounter Care Teams Mixer And Scaler Relationship Specialty Start Date End Date Joseph Smith MD [address] [facility] [address] [place] [address] PCP - General 03 Teresita Jeong MD [address] [facility] [address] [place], [place] [id number] Assigned OBGYN Provider 05/24/23 documented as of this encounter
--- OUTSIDE RECORDS SUMMARY | 2023-07-01 09:45 | XMS_ITS | Encounter Summary ---
Author Name Unknown Organization [place] Address [address] [facility] [place] [address] Care Team Providers Care Pharmacy Clinical Specialist Name Role Phone Joseph Smith MD Primary Care Provider [phone] Kenna Silva MD Unavailable [phone] Reason for Visit * Reason Comments Genetic Counseling * Consultation (Routine: Next available opening) - Pending Review Specialty Diagnoses / Procedures Referred By Contac t Referred To Contact Diagnoses Abnormal ultrasound Teresita Jeong MD [address] [facility] [address] [place] [address] Referral ID Status Reason Start Date Expiration Date V isits Requested Visits Authorized [id number] Pending Review 05/14/2023 05/13/2024 1 1 Encounter Details Date Type Department Care Team (Late st Contact Info) Description 05/14/2023 8:45 AM BICYCLE MECHANIC Office Visit [facility] Maternal Medicine Center [place] [address] [facility] [address] [place] [phone] Teresita Jeong MD [address] [facility] [address] [place] [address] Maria Fernanda Asencio GC [address] [address] [place], [place] [address] Abnormal ultrasound (Primary Dx) Social History Tobacco Use Types Packs/Day Years [...] on file documented as of this encounter Progress Notes * Maria Fernanda Asencio GC - 05/14/2023 8:[address] [facility] Medicine Center Genetic Counseling Consult Patient: Gabriel Morse Date of : 2005 Date of Service: 05/14/23 Gabriel was seen at the [facility] for genetic consultation atthe request of Dr. Teresita Jeong. The indication for genetic counseling is abnormal ultrasoundshowing intrauterine growth restriction. The patient was accompanied to this visit by their mother. The session was conducted in Armenian. IMPRESSION/ PLAN 1. Gabriel had genetic screening earlier in this . Her non-invasive test was screen negative or low risk for screened conditions (Down syndrome, trisomy 18, trisomy 13, and sex chromosome aneuploidies). 2. During today's [facility] visit, Gabriel consented to a blood draw for cytomegalovirus (CMV) infectionstudies.Upon review on 05/19/23, Gabriel's order was not drawn. Shannon Polk MS, [facility] called herto see if she wished to plan a time to come back for the draw, or if she wished to have it drawn ather 06/04/23 ultrasound. I left a callback number as patient did not answer. 3. Gabriel had a level II comprehensive anatomy ultrasound today. Please see the ultrasound reportfor further details. 4. Further recommendation include a follow-up CTG/NST and ultrasound with [facility]. The upcoming ultrasound has been scheduled for 06/04/2023. HISTORY /Parity: Gabriel's history is non-contributory. CURRENT Current Age: [age] year old Age at Delivery: 18 year old KAITLYNN: 09/11/2023, by Last Menstrual Period Gestational Age: 22w6d This is a single gestation. This was conceived spontaneously. MEDICAL HISTORY Gabriel???s reported medical history is not expected to impact management or risks to development. FAMILY HISTORY A three-generation family history was not obtained today due to our focus on other topics. RISK ASSESSMENT FOR CHROMOSOME CONDITIONS Intrauterine growth restriction (IUGR) was seen on [facility]'s ultrasound today. IUGR is commonly defined as an estimated weight below the tenth percentile for any gestational age. Pregnancies with IUGR typically have more significant growth restriction than pregnancies with small for gestational age. In 70-80% of IUGR the growth restriction is asymmetrical which means the abdominal circumference is more significantly decreased then the head and femurs. In 20-30% of IUGR the growthrestriction is symmetrical and the head, abdomen, and femurs are proportionally decreased. Fetuses with asymmetrical IUGR have been noted to have a higher risk for major anomalies, low weight, p erinatal mortality, hypertensive disorders of , delivery, and overall poor outcomes. We spent some time discussing the different possible causes of IUGR: Maternal factors: Age, race, socioeconomic status, maternal weight at , low pre- weight, chronic maternal hypoxia, exposures (smoking), small or large interpregnancy interval, assisted reproductive technologies, maternal diease (ex preeclampsia, chronic hypertension, lupus), malnutrition and gastrointestinal conditions (ex ulcerative colitis), and hematologic disorders factors: 5-20% of IUGR cases will be due to a genetic factor Aneuploidy (ex trisomy 18) Confined placental mosaicism (CPM) for trisomy 16 (CPM is three times more common in IUGR pregnancies) Microdeletion syndrome (ex Reed-Hirschhorn and Cri du chat syndrome) Ring chromosomes Uniparental disomy of chromosome 6, 14, 16 Inborn errors of metabolism Single gene disorders (ex Arabella de Valdivia syndrome) 10% of IUGR will also have a congenital anomaly Single umbilical artery Anencephaly Omphalocele/ gastroschisis Congenital diaphragmatic hernia Renal agenesis/dysplasoia Cardiac malformations In utero infections accounts for less than 5-10% of IUGR cases Viral infections (ex cytomegalovirus [CMV], herpes) Parasitic infections (ex toxoplasmosis) Multiple gestation pregnancies like twins and triplets have a higher chance of IUGR Placental Factors: Insufficiency, low placental weight, placenta acreeta, placental abruption, confined placental mosaicism, partial molar , single umbilical artery, velamentous cord insertion, abnormal first trimester screening biochemical markers Additional ultrasounds and monitoring throughout the are common when IUGR is detected. Commonly growth ultrasounds are performed every few weeks as well as studies of the blood flow throughthe umbilical artery. Evaluation and referral to a pediatric physician assistant would be recommended if there are any other concerns such as abnormalities, dysmorphic features, developmental delays, or growth problems after delivery. Genetic amniocentesis is recommended to consider. Since amniocentesis is an invasive type of procedure, there is a 1 in 500 chance for complication including miscarriage. Typically a chromosome microarray analysis is ordered to look for common genetic causes like aneuploidy and microdeletion syndromes. If other ultrasound findings or family history suggest the likelihood of other genetic conditions then a panel or single gene test may be recommended. Infection studies, such as CMV, is commonly ordered on the amniotic fluid as well. Gabriel discussed this option with Dr. Jeong and declined amniocentesis at this time. Non-invasive methods are also available and would likely include cell-free DNA aneuploidy screeningfor common trisomies (NIPS) and maternal serology studies. Gabriel has already had negative NIPS in her current . Dr. Jeong discussed cytomegalovirus (CMV) with Hectorlamar as a possible explanation. CMV is a common virus that infects 50% of people by age 40. Most individuals have little to no symptoms during a CMV infection. CMV can be reactivated later in life as well. women with a first-time infection or a reactivation of CMV have a chance (25-50%) of passing the virus to the fetus, depending on multiple factors including the trimester in which the infection began. This is called congenital CMV. Ofthose babies born with congenital CMV about 1-15% will have symptoms at and another 10-15% will show symptoms later in childhood. Congenital CMV is the leading viral cause of developmental disability and the leading non-genetic cause of hearing loss. Congenital CMV may also lead to damage of the central nervous system and can cause growth restriction. Gabriel had a blood draw for CMV IgG, IgG avidity, and IgM drawn today. GENETIC TESTING OPTIONS FOR CHROMOSOMAL CONDITIONS Genetic testing during a includes screening and diagnostic procedures. Screening tests are non-invasive which means no risk to the and includes ultrasounds and blood work. Screening tests provide a risk assessment (chance) specific to the for certainfetal chromosome abnormalities but cannot definitively diagnose or exclude a chromosome abnormality. Follow- up genetic counseling and consideration of diagnostic testing is recommended with anyabnormal screening result. Diagnostic testing during a is more certain and can test for more conditions. However, the tests do have a risk of miscarriage that requires careful consideration. These tests can detect chromosome abnormalities with greater than 99% certainty. Results canbe compromised by maternal cell contamination or mosaicism and are limited by the resolution of current genetic testing technology. There is no screening or diagnostic test that detects all forms of defects or intellectual disability. Gabriel had genetic screening earlier in this . Her non-invasive test was screennegative or low risk for screened conditions. Non-invasive screening (NIPS) results Maternal plasma cell-free DNA testing Screens for trisomy 21, trisomy 13, trisomy 18, and sex chromosome aneuploidy First trimester ultrasound with nuchal translucency and nasal bone assessment was not performed in this , to our knowledge. Gabriel had a [facility] NIPS test earlier in ; we reviewed the results today, which are lowrisk. The NIPT did include sex chromosome aneuploidies and the result was low risk. The predicted sex is XY, which is typically male. Given the accuracy of this test, these results greatly decrease the chance for certain chromosome abnormalities CARRIER SCREENING Expanded carrier screening is available to screen for autosomal recessive conditions and X-linked conditions in a large list of genes. Autosomal recessive conditions happen when a mutation has been inherited from the egg and sperm and include conditions like cystic fibrosis, thalassemia, hearing loss, spinal muscular atrophy, and more. X-linked conditions happen when a mutation has been inheritedfrom the egg and include conditions like fragile X syndrome. screening is another avenue through which some of these diagnoses may be made. About [place] Screening Carrier screening was not discussed today. If the patient is interested in further discussing the option of carrier screening, MFM would be available to assist in coordination if desired. It was a pleasure to be involved with Gabriel???s care. Ypxa-ve-qycm time of the meeting was 10 minutes. Maria Fernanda Asencio MS, [facility] Maternal Medicine Office: [phone] MFM: [phone] [facility] Patient seen, evaluated and discussed with the Genetic Counseling Maintenance Associate. I have verified the content of the note, which accurately reflects my assessment of the patient and the plan of care. Supervising Genetic Counselor Shannon Polk MA, [facility] Licensed Genetic Counselor [facility] Maternal Medicine [email or web address] Office: [phone] Pager [phone] MFM: [phone] CLE MECHANIC documented in this encounter Plan of Treatment Scheduled Orders Name Type Priority Associated Diagnoses Orde r Schedule CMV Antibody IgG Lab Routine Abnormal ultrasound Expected: 05/14/2023 (Approximate), Expires: 08/12/2023 CMV Antibody IgM Lab Routine Abnormal ultrasound Expected: 05/14/2023 (Approximate), Expires: 08/12/2023 Cytomegalovirus IgG Avidity Lab Routine Abnormal ultrasound Expected: 05/14/2023 (Approximate), Expires: 05/14/2024 documented as of this encounter Visit Diagnoses Diagnosis Abnormal ultrasound- Primary Abnormal findings on screening documented in this encounter Care Teams Pharmacy Clinical Specialist Relationship Specialty Start Date End Date Joseph Smith MD [address] [facility] [address] [place] [phone] PCP - General 03 Kenna Silva MD [address] [place], [place] [address] Assigned OBGYN Provider 05/03/23 documented as of this encounter
--- OUTSIDE RECORDS SUMMARY | 2023-07-01 09:46 | XMS_ITS | Encounter Summary ---
Author Name Unknown Organization [place] Address [facility] [place] [address] Care Team Providers Care Litigation Assistant Name Role Phone Joseph Smith MD Primary Care Provider [phone] Reason for Referral * Diagnostic Imaging Ultrasound (Routine) - Pending Review Specialty Diagnoses / Procedures Referred By Jesse knox Referred To Contact Radiology. Diagnoses Encounter for follow-up ultrasound of anatomy Procedures [facility] US Comprehensive Single F/U Kenna Silva MD [address] [place] [address] Referral ID Status Reason Start Date Expiration Date V isits Requested Visits Authorized [id number] Pending Review 04/23/2023 04/22/2024 1 1 Reason for Visit * Reason Comments Ultrasound L2-BMI Encounter Details Date Type Department Care Team (Late st Contact Info) Description 04/23/2023 8:30 AM CDT Office Visit [facility] Maternal Medicine Center [place] [address] [facility] [address] [place] [address] Mikala Iraheta MD [facility] [address] [place] [address] Kenna Silva MD [address] [place] [address] Obesity in , antepartum (Primary Dx); BMI 40.0-44.9, adult (H); Encounter for follow-up ultrasound of anatomy Social History Tobacco Use Types Packs/Day Years [...] as of this encounter Progress Notes * Kenna Silva MD - 04/23/2023 8:30 AM CDT The patient was seen for an ultrasound in the Maternal- Medicine Center at the [facility] today. For a detailed report of the ultrasound examination, please see the ultrasound report which can be found under the imaging tab. If you have questions regarding today's evaluation or if we can be of further service, please contact the Maternal- Medicine Center. Kenna Silva MD Sand Worker, IMPLEMENTATION MANAGER Maternal- Medicine [phone] (Pager) documented in this encounter Miscellaneous Notes * Addendum Note - Sarah King RN - 04/23/2023 8:30 AM CDTAddended by: SARAH KING on: 04/23/2023 09:02 AM Modules accepted: Orders documented in this encounter Plan of Treatment Not on file documented as of this encounter Results * MFM US Comprehensive Single F/U (05/14/2023 8:53 AM CABLE REELER) Anatomical Region Laterality Modality Ultrasound 05/14/2023 7:56 AM CABLE REELER Impressions 05/14/2023 11:04 AM CABLE REELER IMPRESSION ----- 1. Queen intrauterine at 22w [...] for gestational age. Narrative 05/14/2023 11:04 AM CABLE REELER ?Comp Follow Up ----- Pat. Name: GABRIEL MORSE ? Study Date: ??05/14/2023 7:56am Pat. NO: ??[id number] ?Referring ??: MIKALA IRAHETA Site: ??[place] ? Director Inpatient Headache Program: Kitty Gray RDMS : ??2005 ?Age: ?? [...] 1 lb 1 ?oz EFW by ?Hadlock ([id number]) Head / Face / Neck Biometry: Cad Designer ? 6.7 ? mm CM ?6.1 ? [...] view. Aortic arch view. Ductal arch view. 0-fqvvqz-lqzfblw view. ? Diaphragm. Abdomen ? Stomach. Kidneys. [...] abnormalities. Her dating was reviewed (LMP c/w 1st tri US). She had a low risk [...] complete weekly UA Dopplers/ surveillance locally in [place] and return to our clinic every 3 [...] medical record, and communicating with other health animal caretaker and/or care coordination. Please see note for details. Procedure Note Teresita Jeong MD - 05/14/2023 Comp Follow Up ----- Pat. Name: GABRIEL MORSE Study Date: 05/14/2023 7:56am Pat. NO: [id number] Referring MD: MIKALA IRAHETA Site: [facility] Director Inpatient Headache Program: Kitty Gray RDMS : 2005 Age: 18 [...] 1 lb 1 oz EFW by Hadlock (GOC-PE-FV-FL) Head / Face / Neck Biometry: Cad Designer 6.7 mm CM 6.1 mm Nasal bone 7.2 mm ANATOMY ----- The following structures appear normal: Head / Neck Cranium. Head size. Head shape.Lateral ventricles. Midline falx. Cavum septi pellucidi. Cerebellum.Cisterna magna. Thalami. Face Lips. Profile. Nose. Maxilla.Mandible. Orbits. Lens. Heart / Thorax 4-chamber view. RVOT view. LVOT view.Aortic arch view. Ductal arch view. 7-odzoce-wkoekqk view. Diaphragm. Abdomen Stomach. Kidneys. Bladder. Spine [...] today was within normal limits. Of note, Meckinsue was only4 Ib when she was born [...] her complete weekly UA Dopplers/antenatalsurveillance locally in [place] and return to our clinic every 3 [...] electronic medical record, andcommunicating with other health animal caretaker and/or carecoordination. Please see note for details. [...] reassuring for gestational age. Kenna Silva MD [facility] US ORDERABLE S documented in this encounter Visit Diagnoses Diagnosis Obesity in , antepartum- Primary Obesity complicating , childbirth, or the puerperium, antepartum condition or complication BMI 40.0-44.9, adult (H) Body Mass Index 40.0-44.9, adult Encounter for follow-up ultrasound of anatomy Encounter for follow-up ultrasound of anatomy documented in this encounter Care Teams Litigation Assistant Relationship Specialty Start Date End Date Joseph Smith MD [address] [facility] [address] [place] [phone] PCP - General 03 documented as of this encounter
--- OUTSIDE RECORDS SUMMARY | 2023-07-01 09:46 | XMS_ITS | Encounter Summary ---
Author Name Unknown Organization [place] Address [facility] [place] [address] Care Team Providers Care Healthcare Advisory Services Manager Name Role Phone Joseph Smith MD Primary Care Provider [phone] Reason for Visit * Reason Comments Ultrasound L2-BMI Encounter Details Date Type Department Care Team (Late st Contact Info) Description 04/15/2023 PRE VISIT [facility] Maternal Medicine Center [place] [address] [place] [address] Shauna Ibrahim, RN Ultrasound (L2-BMI) Social History Tobacco Use Types Packs/Day Years [...] on filedocumented in this encounter Care Teams Healthcare Advisory Services Manager Relationship Specialty Start Date End Date Joseph Smith MD [address] [place] [phone] PCP - General 03 documented as of this encounter
--- OUTSIDE RECORDS SUMMARY | 2023-07-01 09:46 | XMS_ITS | Encounter Summary ---
Author Name Unknown Organization [employer] Address [address] [place] [address] Care Team Providers Care Malt House Kiln Operator Name Role Phone Joseph Smith MD Primary Care Provider [phone] Encounter Details Date Type Department Care Team (Latest Contact Info) Description 04/23/2023 Travel Social History Tobacco Use Types Packs/Day [...] on filedocumented in this encounter Care Teams Malt House Kiln Operator Relationship Specialty Start Date End Date Joseph Smith MD [address] [place] [address] PCP - General 03 documented as of this encounter
--- OUTSIDE RECORDS SUMMARY | 2023-07-01 09:46 | XMS_ITS | Encounter Summary ---
Author Name Unknown Organization [place] Address [address] [place] [address]. [place] [address] Care Team Providers Care Commercial Installer Name Role Phone Joseph Smith MD Primary Care Provider [phone] Encounter Details Date Type Department Care Team (Latest Contact Info) Description 03/26/2023 Medical Correspondence [facility] [address] [place] [address] Outside, Provider [facility] PROVIDER SERVICE REQUEST- OUTPATIENT Social History Tobacco Use Types Packs/Day Years Used Date Smoking Tobacco: Never Alcohol Use Standard Drinks/Week Comments Not Asked 0 (1 standard drink = 0.6 oz pur e alcohol) Adolescent Education Answer Date Record ed Getting School Help Needed Not on file 03/27 Sex and Gender Information Value Date Recorded Sex Assigned at Not on file Gender Identity Not on file Sexual Orientation Not on file documented as of this encounter Plan of Treatment Not on file documented as of this encounter Visit Diagnoses Not on filedocumented in this encounter Care Teams Commercial Installer Relationship Specialty Start Date End Date Joseph Smith MD [address] [place] [address] PCP - General 03 documented as of this encounter
--- OUTSIDE RECORDS SUMMARY | 2023-07-01 09:46 | XMS_ITS | Encounter Summary ---
Author Name Unknown Organization [place] Address [facility] [place] [address] Care Team Providers Care Microfilm Duplicating Unit Supervisor Name Role Phone Joseph Smith MD Primary Care Provider [phone] Reason for Referral * Diagnostic Imaging Ultrasound (Routine) - Pending Review Specialty Diagnoses / Procedures Referred By Jesse knox Referred To Contact Radiology. Diagnoses related condition, antepartum Procedures [facility] US Comprehensive Single Mikala Iraheta MD [facility] [address] [place] [address] Fax: Referral ID Status Reason Start Date Expiration Date V isits Requested Visits Authorized [id number] Pending Review 03/27/2023 03/26/2024 1 1 Reason for Visit * Diagnostic Imaging Ultrasound (Routine) - Pending Review Specialty Diagnoses / Procedures Referred By Jesse knox Referred To Contact Radiology. Diagnoses related condition, antepartum Procedures [facility] US Comprehensive Single Mikala Iraheta MD [facility] [address] [place] [address] Fax: Referral ID Status Reason Start Date Expiration Date V isits Requested Visits Authorized [id number] Pending Review 03/27/2023 03/26/2024 1 1 Encounter Details Date Type Department Care Team (Latest Contact Info) Description 04/23/2023 7:53 AM CDT - 04/23/2023 11:59 PM CDT Hospital Encounter [facility] [place] [address] [place] [address] Mikala Iraheta MD [facility] [address] [place] [address] Kenna Silva MD [address] [place] [address] related condition, antepartum Discharge Disposition: Home or Self Care Social History Tobacco Use Types Packs/Day Years [...] on file documented as of this encounter Medications at Time of Discharge Medication Sig Dispensed Refills Start Date End Date MOTRIN 100 MG/5ML OR SUSPIndications:Fever and other physiologic disturbances of temperature regulation prn 0 12/10/2004 TYLENOL INFANT DROPS SOLN 100 MG/ML OR prn 0 documented as of this encounter Plan of Treatment Not on file documented as of this encounter Procedures Procedure Name Priority Date/Time Associated Diagnosis Comments [facility] COMPREHENSIVE SINGLE Routine 04/23/2023 8:44 AM CDT related condition, antepartum documented in this encounter Results * [facility] Comprehensive Single (04/23/2023 8:44 AM CDT) Anatomical [...] ? Study Date: ??04/23/2023 7:58am Pat. NO: ??[id number] ?Referring ??: MIKALA IRAHETA Site: ??[facility] [employer] Supervisor: Kitty Gray RDMS : ??2005 ?Age: ?? [...] lb 10 ? oz EFW by ?Hadlock ([id number]) Head / Face / Neck Biometry: Cartographic Technician ? 7.6 ? mm CM ?5.0 ? [...] / Thorax ?4-chamber view. Aortic arch view. 9-plehkt-hxzbkyh view. ? Diaphragm. Spine ?Sacral spine. Extremities [...] medical record, and communicating with other health healthcare facility administrator and/or care coordination. Please see note for details. Procedure Note Kenna Silva MD - 04/23/2023 Comprehensive ----- Pat. Name: GABRIEL MORSE Study Date: 04/23/2023 7:58am Pat. NO: [id number] Referring MD: MIKALA IRAHETA Site: [facility] Bull Gang Supervisor: Kitty Gray RDMS : 2005 Age: 18 [...] 0 lb 10 oz EFW by Hadlock ([id number]-FL) Head / Face / Neck Biometry: Cartographic Technician 7.6 mm CM 5.0 mm Nuchal fold [...] Heart / Thorax 4-chamber view. Aortic arch view.3-cnkftg-osipmrm view. Diaphragm. Spine Sacral spine. Extremities / [...] electronic medical record, andcommunicating with other health healthcare facility administrator and/or carecoordination. Please see note for details. [...] appears long and closed. Mikala Iraheta MD [facility] US ORDERABLE S documented in this encounter Visit Diagnoses Diagnosis related condition, antepartum documented in this encounter Care Teams Microfilm Duplicating Unit Supervisor Relationship Specialty Start Date End Date Joseph Smith MD [address] [facility] [address] [place] [phone] PCP - General 03 documented as of this encounter
--- OUTSIDE RECORDS SUMMARY | 2023-07-01 09:46 | XMS_ITS | Encounter Summary ---
Author Name Unknown Organization [place] Address [address] [place] [address]. [place] [address] Care Team Providers Care Livestock Yard Supervisor Name Role Phone Joseph Smith MD Primary Care Provider [phone] Reason for Referral * Diagnostic Imaging Ultrasound (Routine) - Pending Review Specialty Diagnoses / Procedures Referred By Jesse knox Referred To Contact Radiology. Diagnoses related condition, antepartum Procedures [facility] US Comprehensive Single Mikala Iraheta MD [facility] [address] [place] [address] Fax: Referral ID Status Reason Start Date Expiration Date V isits Requested Visits Authorized [id number] Pending Review 03/27/2023 03/26/2024 1 1 * Consultation (Routine: Next available opening) - Pending Review Specialty Diagnoses / Procedures Referred By Jesse knox Referred To Contact Diagnoses related condition, antepartum Mikala Iraheta MD [facility] [address] [place] [address] Fax: Maternal Med [address] [address] Referral ID Status Reason Start Date Expiration Date V isits Requested Visits Authorized [id number] Pending Review 03/27/2023 03/26/2024 1 1 Question Answer Preferred Location: [facility] 08/25/2023 Ultrasound Comprehensive US (>than 18 weeks GA) US PROC NONE MFM Issue OTHER (enter details in Comments) - BMI MFM Consultation (unrelated to Ultrasound findings): No Inflammatory Bowel Disease Clinic: Joint MFM and GI Consultation: No Chronic Kidney Disease: Joint MFM and Nephrology Consultation No Genetic Counseling Consultation: No fax Mikala Iraheta, [facility], Comments There is no height or weight on file to calculate BMI. >> Patient may proceed with recommendations for further testing as directed by the Maternal Medicine Specialist >> >> If requesting Echo: MFM will determine appropriate location for exam due to indication. >> If requesting Lung Maturity Amnio: If results indicate lung maturity, induction or C/S is recommended within 36 hours. Please schedule accordingly. Please be aware that coverage of these services is subject to the terms and limitations of your health insurance plan. Call member services at your health plan with any benefit or coverage questions. Encounter Details Date Type Department Care Team (Latest Contact Info) Description 03/27/2023 Transcribe Orders [facility] Maternal Medicine Center [address] [address] Mikala Iraheta MD [facility] [address] [place] [address] related condition, antepartum (Primary Dx) Social History Tobacco Use Types [...] as of this encounter Plan of Treatment Scheduled Referrals Name Type Priority Associated Diagnoses Orde r Schedule Mat Med Ctr Referral - Referral Routine: Next available opening Related Condition, Antepartum Expected: 03/27/2023 (Approximate), Expires: 03/27/2024 documented as of this encounter Results * [facility] US Comprehensive Single (04/23/2023 8:44 AM [...] ? Study Date: ??04/23/2023 7:58am Pat. NO: ??[id number] ?Referring ??MD: MIKALA IRAHETA Site: ??[facility] ? Boiler Fireman: Kitty Gray RDMS : ??2005 ?Age: ?? [...] lb 10 ? oz EFW by ?Hadlock ([id number]-FL) Head / Face / Neck Biometry: Field Marketing Associate ? 7.6 ? mm CM ?5.0 ? [...] / Thorax ?4-chamber view. Aortic arch view. 3-lyrmid-yhxtxny view. ? Diaphragm. Spine ?Sacral spine. Extremities [...] medical record, and communicating with other health career manager and/or care coordination. Please see note for details. Procedure Note Kenna Silva MD - 04/23/2023 Comprehensive ----- Pat. Name: GABRIEL MORSE Study Date: 04/23/2023 7:58am Pat. NO: [id number] Referring MD: MIKALA IRAHETA Site: [facility] Boiler Fireman: Kittypaul Gray RDMS : 2005 Age: 18 ----- [...] 0 lb 10 oz EFW by Hadlock ([id number]) Head / Face / Neck Biometry: Field Marketing Associate 7.6 mm CM 5.0 mm Nuchal fold [...] Heart / Thorax 4-chamber view. Aortic arch view.5-emyndm-rmeyfar view. Diaphragm. Spine Sacral spine. Extremities / [...] electronic medical record, andcommunicating with other health career manager and/or carecoordination. Please see note for [...] the cervix appears long and closed. Mikala Sonny Iraheta MD [facility] US ORDERABLE S documented in this encounter Visit Diagnoses Diagnosis related condition, antepartum- Primary related condition, antepartum documented in this encounter Care Teams Livestock Yard Supervisor Relationship Specialty Start Date End Date Joseph Smith MD [address] [facility] [address] [place] [address] PCP - General 03 documented as of this encounter
--- OUTSIDE RECORDS SUMMARY | 2023-07-01 09:46 | XMS_ITS | Encounter Summary ---
Author Name Unknown Organization [place] Address [facility] [place] [address] Care Team Providers Care Taper Printed Circuit Layout Name Role Phone Joseph Smith MD Primary Care Provider [phone] Kenna Silva MD Unavailable [phone] Reason for Referral * Diagnostic Imaging Ultrasound (Routine) - Pending Review Specialty Diagnoses / Procedures Referred By Contac t Referred To Contact Radiology. Diagnoses Encounter for follow-up ultrasound of anatomy Procedures [facility] US Comprehensive Single F/U Kenna Silva MD [address] [address] Referral ID Status Reason Start Date Expiration Date V isits Requested Visits Authorized [id number] Pending Review 04/23/2023 04/22/2024 1 1 PRESSER Reason for Visit * Diagnostic Imaging Ultrasound (Routine) - Pending Review Specialty Diagnoses / Procedures Referred By Contac t Referred To Contact Radiology. Diagnoses Encounter for follow-up ultrasound of anatomy Procedures [facility] US Comprehensive Single F/U Kenna Silva MD [address] [place] [address] Referral ID Status Reason Start Date Expiration Date V isits Requested Visits Authorized [id number] Pending Review 04/23/2023 04/22/2024 1 1 Encounter Details Date Type Department Care Team (Latest Contact Info) Description 05/14/2023 7:51 AM TIE PRESSER - 05/14/2023 11:59 PM TIE PRESSER Hospital Encounter [facility] [place] [address] [facility] [address] [place] [address] Kenna Silva MD [address] [place] [address] Carter Win MD [address] [place] [address] Teresita Jeong MD [address] [facility] [address] [place] [address] Encounter for follow-up ultrasound of anatomy Discharge Disposition: Home or Self Care Social [...] of temperature regulation prn 0 12/10/2004 TYLENOL DROPS SOLN 100 MG/ML OR prn 0 documented as of this encounter Plan of Treatment Not on file documented as of this encounter Procedures Procedure Name Priority Date/Time Associated Diagnosis Comments [facility] US COMPREHENSIVE SINGLE F/U Routine 05/14/2023 8:53 AM TIE PRESSER Encounter for follow-up ultrasound of anatomy documented in this encounter Results * [facility] US Comprehensive Single F/U (05/14/2023 8:53 AM TIE PRESSER) Anatomical Region Laterality Modality Ultrasound 05/14/2023 7:56 AM TIE PRESSER Impressions 05/14/2023 11:04 AM TIE PRESSER IMPRESSION ----- 1. Queen intrauterine at 22w [...] for gestational age. Narrative 05/14/2023 11:04 AM TIE PRESSER ?Comp Follow Up ----- Pat. Name: GABRIEL MORSE ? Study Date: ??05/14/2023 7:56am Pat. NO: ??[id number] ?Referring ??: GEMMA IRAHETA Site: ??[facility] ? Life Consultant: Kitty Gray RDMS : ??2005 ?Age: ?? [...] 1 lb 1 ?oz EFW by ?Hadlock (SHY-DO-SH-FL) Head / Face / Neck Biometry: Douper ? 6.7 ? mm CM ?6.1 ? [...] view. Aortic arch view. Ductal arch view. 8-sedfgp-yaaokco view. ? Diaphragm. Abdomen ? Stomach. Kidneys. [...] complete weekly UA Dopplers/ surveillance locally in [place] and return to our clinic every 3 [...] record, and communicating with other health healthcare manager and/or care coordination. Please see note for details. Procedure Note Teresita Jeong MD - 05/14/2023 Comp Follow Up ----- Pat. Name: GABRIEL MORSE Study Date: 05/14/2023 7:56am Pat. NO: [id number] Referring MD: GEMMA IRAHETA Site: [facility] Life Consultant: Kitty Gray RDMS : 2005 Age: 18 [...] 1 lb 1 oz EFW by Hadlock ([id number]-FL) Head / Face / Neck Biometry: Douper 6.7 mm CM 6.1 mm Nasal bone 7.2 mm ANATOMY ----- The following structures appear normal: Head / Neck Cranium. Head size. Head shape.Lateral ventricles. Midline falx. Cavum septi pellucidi. Cerebellum.Cisterna magna. Thalami. Face Lips. Profile. Nose. Maxilla.Mandible. Orbits. Lens. Heart / Thorax 4-chamber view. RVOT view. LVOT view.Aortic arch view. Ductal arch view. 6-tbjtst-avdcfdz view. Diaphragm. Abdomen Stomach. Kidneys. Bladder. Spine [...] within normal limits. Of note, Meckinzy was only4 Ib when she was born [...] her complete weekly UA Dopplers/antenatalsurveillance locally in [place] and return to our clinic every 3 [...] medical record, andcommunicating with other health healthcare manager and/or carecoordination. Please see note for [...] reassuring for gestational age. Kenna Silva MD IMG [facility] US ORDERABLE S documented in this encounter Visit Diagnoses Diagnosis Encounter for follow-up ultrasound of anatomy documented in this encounter Care Teams Taper Printed Circuit Layout Relationship Specialty Start Date End Date Joseph Smith MD [address] [facility] [address] [place] [phone] PCP - General 03 Kenna Silva MD [address] [id number] Assigned OBGYN Provider 05/03/23 documented as of this encounter
--- OUTSIDE RECORDS SUMMARY | 2023-07-01 09:46 | XMS_ITS | Encounter Summary ---
Author Name Unknown Organization [place] Address [address] [place] [address] Care Team Providers Care Head Doffer Name Role Phone Joseph Smith MD Primary Care Provider [phone] Kenna Silva MD Unavailable [phone] Reason for Referral * Consultation (Routine: Next available opening) - Pending Review Specialty Diagnoses / Procedures Referred By Contac t Referred To Contact Diagnoses growth restriction antepartum Teresita Jeong MD [address] [facility] [address] [place] [address] Referral ID Status Reason Start Date Expiration Date V isits Requested Visits Authorized [id number] Pending Review 05/14/2023 05/13/2024 1 1 Question Answer CTG/NST Yes LIANCE PARALEGAL * Consultation (Routine: Next available opening) - Pending Review Specialty Diagnoses / Procedures Referred By Contac t Referred To Contact Diagnoses Abnormal ultrasound Teresita Jeong MD [address] [facility] [address] [place] [address] Referral ID Status Reason Start Date Expiration Date V isits Requested Visits Authorized [id number] Pending Review 05/14/2023 05/13/2024 1 1 LIANCE PARALEGAL * Consultation (Routine: Next available opening) - Pending Review Specialty Diagnoses / Procedures Referred By Contac t Referred To Contact Diagnoses growth restriction antepartum Teresita Jeong MD [address] [address] Referral ID Status Reason Start Date Expiration Date V isits Requested Visits Authorized [id number] Pending Review 05/14/2023 05/13/2024 1 1 LIANCE PARALEGAL * Diagnostic Imaging Ultrasound (Routine) - Pending Review Specialty Diagnoses / Procedures Referred By Contac t Referred To Contact Radiology. Diagnoses growth restriction antepartum Procedures [facility] US Comprehensive Single F/U Teresita Jeong MD [address] [address] Referral ID Status Reason Start Date Expiration Date V isits Requested Visits Authorized [id number] Pending Review 05/14/2023 05/13/2024 1 1 LIANCE PARALEGAL Reason for Visit * Reason Comments Ultrasound RL2-subopt Encounter Details Date Type Department Care Team (Late st Contact Info) Description 05/14/2023 8:30 AM COMPLIANCE PARALEGAL Office Visit [facility] [place] [address] [facility] [address] [place] [address] Kenna Silva MD [address] [place], [place] [id number] Carter Win MD [address] [place], [place] [address] Teresita Jeong MD [address] [place] [address] BMI 40.0-44.9, adult (H) (Primary Dx); Encounter for follow-up ultrasound of anatomy; growth restriction antepartum; Abnormal ultrasound Social History Tobacco Use Types Packs/Day Years [...] on file documented as of this encounter Last Filed Vital Signs Vital Sign Reading Time Taken Comments Blood Pressure 110/69 05/14/2023 11:37 AM COMPLIANCE PARALEGAL Pulse 77 05/14/2023 11:37 AM COMPLIANCE PARALEGAL Temperature - - Respiratory Rate - - Oxygen Saturation 99% 05/14/2023 11:37 AM COMPLIANCE PARALEGAL Inhaled Oxygen Concentration - - Weight - - Height - - Body Mass Index - - documented in this encounter Progress Notes * Teresita Jeong MD - 05/14/2023 8:30 AM CST Please see the full imaging report from the ViewPoint program under the imaging tab. Teresita Jeong MD Maternal Medicine LIANCE PARALEGAL documented in this encounter Nursing Notes * Shauna Ibrahim RN - 05/14/2023 8:30 AM CST Patient presents to [facility] for RL2 at 22w6d due to subopt . Positive movement. Denies LOF, vaginal bleeding or cramping/contractions. SBAR given to [facility] MD, see their note in Epic. NST performed today for FGR. Pt plans to do her NSTs and limited US with UAR dopplers in [place]. Spoke with FÁTIMA Crews at [place] to confirm that they can do these appts for the pt. Per FÁTIMA Crews they are able to do NSTs and limited US with UAR dopplers weekly for pt in [place]. Instructed pt to call [place] today to schedule appts. Pt will follow up with [facility] in 3 weeks for a RL2/UAR/NST. LIANCE PARALEGAL documented in this encounter Plan of Treatment Scheduled Orders Name Type Priority Associated Diagnoses Orde r Schedule Maternal US Comprehensive Single F/U Imaging Routine growth restriction antepartum Expected: 06/04/2023 (Approximate), Expires: 05/14/2024 Nonstress Test (MFM Order Only} OB Routine growth restriction antepartum Expected: 06/04/2023, Expires: 05/14/2024 Nonstress Test (MFM Order Only} OB Routine growth restriction antepartum 1 Occurrences starting 05/14/2023 until 05/14/2024 Scheduled Referrals Name Type Priority Associated Diagnoses Orde r Schedule MFM Office Visit Referral Routine: Next available opening growth restriction antepartum Weekly for 1 Occurrences starting 05/14/2023 until 05/14/2024 MF Genetic Counseling Referral Routine: Next available opening Abnormal ultrasound Expected: 05/14/2023 (Approximate), Expires: 05/14/2024 MFM Office Visit Referral Routine: Next available opening growth restriction antepartum Expected: 05/14/2023 (Approximate), Expires: 05/14/2024 documented as of this encounter Visit Diagnoses Diagnosis BMI 40.0-44.9, adult (H)- Primary Body Mass Index 40.0-44.9, adult Encounter for follow-up ultrasound of anatomy growth restriction antepartum Abnormal ultrasound Abnormal findings on screening documented in this encounter Care Teams Head Doffer Relationship Specialty Start Date End Date Joseph Smith MD [address] [facility] [address] [place] [phone] PCP - General 03 Kenna Silva MD [address] [facility] [address] [place] [address] Assigned OBGYN Provider 05/03/23 documented as of this encounter
--- OUTSIDE RECORDS SUMMARY | 2023-07-01 09:46 | XMS_ITS | Encounter Summary ---
Author Name Unknown Organization [place] Address [facility] [place] [address] Care Team Providers Care Auto Mechanics Instructor Name Role Phone Joseph Smith MD Primary Care Provider [phone] Kenna Silva MD Unavailable [phone] Teresita Jeong MD Unavailable Encounter Details Date Type Department Care Team (Late st Contact Info) Description [address] [place] [address] [address] [place] [address] Joseph Smith MD [address] [place] [address] [facility] (Primary Dx) Social History Tobacco Use Types Packs/Day Years Used Date Smoking Tobacco: Never Alcohol Use Standard Drinks/Week Comments Not Asked 0 (1 standard drink = 0.6 oz pur e alcohol) Sex and Gender Information Value Date Recorded Sex Assigned at Not on file Gender Identity Not on file Sexual Orientation Not on file documented as of this encounter Plan of Treatment Not on file documented as of this encounter Visit Diagnoses Diagnosis [facility]- Primary documented in this encounter Care Teams Auto Mechanics Instructor Relationship Specialty Start Date End Date Joseph Smith MD [address] [place] [address] PCP - General 03 Kenna Silva MD [address] [facility] [address] [place], [place] [address] Assigned OBGYN Provider 05/03/23 Teresita Jeong MD [address] [facility] [address] [place] [address] Assigned OBGYN Provider 05/24/23 documented as of this encounter
== END 2023-07-01 09:41 | disposition home or self-care (01) ==
LOC: US 09:41
PROVIDERS: PCP Nurse Practitioner Family; Visit Provider Obstetrics & Gynecology
DX: O36.5930 Maternal care for other known or suspected poor fetal growth, third trimester, not applicable or unspecified (principal); Z3A.30 30 weeks gestation of pregnancy
CPT/HCPCS: 76816; 76819; 76820

== ENCOUNTER 2023-07-07 13:51 | Outpatient (CLI) | payer OTHER, SELFPAY ==
--- NOTE | 2023-07-07 14:00 | CRLHL7_ITS ---
For Patients: As a result of the Century Cures Act, medical imaging exams and procedure reports are released immediately into your electronic medical record. You may view this report before your referring provider. If you have questions, please contact your health care provider. INDICATION: IUGR. 30 week 4 day gestational age. COMPARISON: 07/01/2023 FINDINGS: breathing movements: 2 Gross body movements: 2 tone: 2 Amniotic fluid volume: 2 Total: 01/28 Single deepest amniotic fluid pocket: 5.4 cm Heart rate is 131 beats per minute. Umbilical artery SD ratio 2.4 IMPRESSION: Normal biophysical profile score 01/28. Dictated by Zane Mckinney MD @ 07/08/2023 9:13:36 AM (Electronically Signed)
== END 2023-07-07 13:52 | disposition home or self-care (01) ==
LOC: US 13:51
PROVIDERS: PCP Nurse Practitioner Family; Visit Provider Obstetrics & Gynecology
DX: O36.5930 Maternal care for other known or suspected poor fetal growth, third trimester, not applicable or unspecified (principal); Z3A.30 30 weeks gestation of pregnancy
CPT/HCPCS: 76819; 76820

== ENCOUNTER 2023-07-15 09:37 | Outpatient (CLI) | payer OTHER, SELFPAY ==
--- NOTE | 2023-07-15 09:45 | CRLHL7_ITS ---
For Patients: As a result of the Century Cures Act, medical imaging exams and procedure reports are released immediately into your electronic medical record. You may view this report before your referring provider. If you have questions, please contact your health care provider. INDICATION: IUGR COMPARISON: 07/07/2023 TECHNIQUE: Real time mast scale imaging of the fetus was performed as well as color Doppler and spectral Doppler analysis of the umbilical artery. Without non-stress testing. FINDINGS: Sonographic imaging demonstrates a single living intrauterine gestation. Fetus demonstrates a regular cardiac rate of 137 beats per minute. Fetus has a vertex position. The umbilical artery demonstrates adequate diastolic blood flow. The S/D ratio measures 2.4. The amniotic fluid volume appears normal and there is a single deepest pocket measurement of 5.3 cm. The fetus was active. Less than 30 seconds of breathing movements. There was normal flexion and extension of the trunk and extremities. IMPRESSION: Biophysical profile 11/28. Dictated by Nash Girard MD @ 07/15/2023 11:10:44 AM (Electronically Signed)
== END 2023-07-15 09:38 | disposition home or self-care (01) ==
LOC: US 09:38
PROVIDERS: PCP Nurse Practitioner Family; Visit Provider Obstetrics & Gynecology
DX: O36.5990 Maternal care for other known or suspected poor fetal growth, unspecified trimester, not applicable or unspecified (principal)
CPT/HCPCS: 76819; 76820

== ENCOUNTER 2023-07-22 09:39 | Outpatient (CLI) | payer OTHER, SELFPAY ==
--- OUTSIDE RECORDS SUMMARY | 2023-07-22 09:41 | XMS_ITS | Referral Summary ---
Author Name Unknown Organization [place] Address [address] [place] [address] Care Team Providers Care Mold Mechanic Name Role Phone Joseph Smith MD Primary Care Provider Teresita Jeong MD Unavailable Encounters Date Type Department Care Team Description 05/27/2023 Telephone [facility] [address] [place] [phone] Maria Fernanda Asencio GC Clinic Care Coordination - Follow-up 05/14/2023 8:45 AM OPERATING ROOM AIDE Office Visit [facility] [address] [employer] [place] [phone] Teresita Jeong MD Daykin, Emily C, GC Abnormal ultrasound (Primary Dx) 05/14/2023 Travel 05/14/2023 8:30 AM OPERATING ROOM AIDE Office Visit [facility] [address] [facility] [address] [place] [phone] Kenna Silva MD Jones, Cresta Wedel, MD Burn, Sabrina, MD BMI 40.0-44.9, adult (H) (Primary Dx); Encounter for follow-up ultrasound of anatomy; growth restriction antepartum; Abnormal ultrasound 05/14/2023 7:51 AM OPERATING ROOM AIDE - 05/14/2023 11:59 PM OPERATING ROOM AIDE Hospital Encounter [facility] [address] [facility] [address] [place] [address] Kenna Silva MD Jones, Cresta Wedel, MD Burn, Sabrina, MD Encounter for follow-up ultrasound of anatomy Discharge Disposition: Home or Self Care 04/23/2023 Travel 04/23/2023 8:30 AM CDT Office Visit [facility] [address] [facility] [address] [place] [address] Mikala Iraheta MD Sabol, Bethany, MD Obesity in , antepartum (Primary Dx); BMI 40.0-44.9, adult (H); Encounter for follow-up ultrasound of anatomy 04/23/2023 7:53 AM CDT - 04/23/2023 11:59 PM CDT Hospital Encounter [place] [address] [address] [facility] [address] [place] [phone] Mikala Iraheta MD Sabol, Bethany, MD related condition, antepartum Discharge Disposition: Home or Self Care from Last 3 Months Allergies Active Allergy [...] Comments Blood Pressure 110/69 05/14/2023 11:37 AM OPERATING ROOM AIDE Pulse 77 05/14/2023 11:37 AM OPERATING ROOM AIDE Temperature 36.6 ??C (97.8 ??F) 10/10/2007 9:00 AM CD T Respiratory Rate 40 2003 8:00 AM CDT Oxygen Saturation 99% 05/14/2023 11:37 AM OPERATING ROOM AIDE Inhaled Oxygen Concentration - - Weight 19.1 kg (42 lb) 10/10/2007 9:00 AM CDT Height 108.6 cm (3' 6.75) 10/10/2007 9:00 AM CD T Body Mass Index 16.16 10/10/2007 9:00 AM CDT Plan of Treatment Not on file Procedures Procedure Name Priority Date/Time Associated Diagnosis Comments LAB RESULT - HIM SCAN 05/21/2023 12:00 AM OPERATING ROOM AIDE [facility] US COMPREHENSIVE SINGLE F/U Routine 05/14/2023 8:53 AM OPERATING ROOM AIDE Encounter for follow-up ultrasound of anatomy [facility] US COMPREHENSIVE SINGLE Routine 04/23/2023 8:44 AM CDT related condition, antepartum from Last 3 Months Results * LAB RESULT - HIM SCAN (05/21/2023 12:00 AM OPERATING ROOM AIDE) 05/21/2023 Provider Outside [facility] * MFM US Comprehensive Single F/U (05/14/2023 8:53 AM OPERATING ROOM AIDE) Anatomical Region Laterality Modality Ultrasound 05/14/2023 7:56 AM OPERATING ROOM AIDE Impressions 05/14/2023 11:04 AM OPERATING ROOM AIDE IMPRESSION ----- 1. Queen intrauterine at 22w [...] for gestational age. Narrative 05/14/2023 11:04 AM OPERATING ROOM AIDE ?Comp Follow Up ----- Pat. Name: GABRIEL MORSE ? Study Date: ??05/14/2023 7:56am Pat. NO: ??[id number] ?Referring ??: MIKALA IRAHETA Site: [facility] ? Roll Machine Operator: Kitty Gray RDMS : ??2005 ?Age: ?? [...] ? 1 lb 1 ?oz EFW by ?Mirna ([id number]-FL) Head / Face / Neck Biometry: Jewelry Estimator ? 6.7 ? mm CM ?6.1 ? [...] view. Aortic arch view. Ductal arch view. 0-jpxjha-tbxlfvj view. ? Diaphragm. Abdomen ? Stomach. Kidneys. [...] complete weekly UA Dopplers/ surveillance locally in [place] and return to our clinic every 3 [...] medical record, and communicating with other health patient care coordinator and/or care coordination. Please see note for details. Procedure Note Teresita Jeong MD - 05/14/2023 Comp Follow Up ----- Pat. Name: GABRIEL MORSE Study Date: 05/14/2023 7:56am Pat. NO: [id number] Referring MD: MIKALA IRAHETA Site: [facility] Roll Machine Operator: Kitty Gray RDMS : 2005 Age: 18 [...] 1 lb 1 oz EFW by Hadlock ([id number]) Head / Face / Neck Biometry: Jewelry Estimator 6.7 mm CM 6.1 mm Nasal bone 7.2 mm ANATOMY ----- The following structures appear normal: Head / Neck Cranium. Head size. Head shape.Lateral ventricles. Midline falx. Cavum septi pellucidi. Cerebellum.Cisterna magna. Thalami. Face Lips. Profile. Nose. Maxilla.Mandible. Orbits. Lens. Heart / Thorax 4-chamber view. RVOT view. LVOT view.Aortic arch view. Ductal arch view. 9-ggcnhr-nusblci view. Diaphragm. Abdomen Stomach. Kidneys. Bladder. Spine [...] today was within normal limits. Of note, Mecnorma was only6 Ib when she was born [...] her complete weekly UA Dopplers/antenatalsurveillance locally in [place] and return to our clinic every 3 [...] electronic medical record, andcommunicating with other health patient care coordinator and/or carecoordination. Please see note for details. [...] reassuring for gestational age. Kenna Silva MD [facility] US ORDERABLE S * [facility] US Comprehensive Single (04/23/2023 8:44 AM [...] AM CDT ?Comprehensive ----- Pat. Name: GABRIEL MOSRE ? Study Date: ??04/23/2023 7:58am Pat. NO: ??[id number] ?Referring ??MD: MIKALA IRAHETA Site: ??[facility] ? Roll Machine Operator: Kitty Gray RDMS : ??2005 ?Age: ?? [...] lb 10 ? oz EFW by ?Hadlock ([id number]) Head / Face / Neck Biometry: Jewelry Estimator ? 7.6 ? mm CM ?5.0 ? [...] / Thorax ?4-chamber view. Aortic arch view. 0-aplfwj-uggyuyi view. ? Diaphragm. Spine ?Sacral spine. Extremities [...] medical record, and communicating with other health patient care coordinator and/or care coordination. Please see note for details. Procedure Note Kenna Silva MD - 04/23/2023 Comprehensive ----- Pat. Name: GABRIEL MORSE Study Date: 04/23/2023 7:58am Pat. NO: [id number] Referring MD: MIKALA IRAHETA Site: [facility] Roll Machine Operator: Kitty Gray RDMS : 2005 Age: 18 ----- INDICATION ----- Obesity - BMI 40.7, low-risk NIPT METHOD ----- Transabdominal ultrasound examination. View: Suboptimal view: limited bymaternal body habitus ----- Queen . Number of fetuses: 1 DATING ----- DateDetailsGest. age KAITLYNN LMP w + 6 d 09/11/2023 Prior assessment 01/31/2023 GA: 7 w +3 d19 w + 1 d 09/16/2023 U/S 3based upon AC, BPD, Femur, HC19 w + [...] 0 lb 10 oz EFW by Hadlock (CHB-JW-ED-FL) Head / Face / Neck Biometry: Jewelry Estimator 7.6 mm CM 5.0 mm Nuchal fold [...] Heart / Thorax 4-chamber view. Aortic arch view.3-grbpga-yszjrll view. Diaphragm. Spine Sacral spine. Extremities / [...] electronic medical record, andcommunicating with other health patient care coordinator and/or carecoordination. Please see note for details. [...] appears long and closed. Mikala Iraheta MD [facility] US ORDERABLE S from Last 3 Months Care Teams Mold Mechanic Relationship Specialty Start Date End Date Joseph Smith MD [address] [facility] [address] [place] [address] PCP - General 03 Teresita Jeong MD [address] [facility] [address] [place] [address] Assigned OBGYN Provider 05/24/23
--- OUTSIDE RECORDS SUMMARY | 2023-07-22 09:41 | XMS_ITS | Encounter Summary ---
Author Name Unknown Organization [place] Address [address] [place] [address]. [place] [address] Care Team Providers Care Gem Technician Name Role Phone Joseph Smith MD Primary Care Provider [phone] Encounter Details Date Type Department Care Team (Latest Contact Info) Description 03/26/[address] [facility] Mg[facility] [address] [place] [address] Outside, Provider [facility] PROVIDER [...] on filedocumented in this encounter Care Teams Gem Technician Relationship Specialty Start Date End Date Joseph Smith MD [address] [place] [address] PCP - General 03 documented as of this encounter
--- OUTSIDE RECORDS SUMMARY | 2023-07-22 09:41 | XMS_ITS | Encounter Summary ---
Author Name Unknown Organization [place] Address [facility] [place] [address] Care Team Providers Care Solar Panel Technician Name Role Phone Joseph Smith MD Primary Care Provider [phone] Reason for Referral * Diagnostic Imaging Ultrasound (Routine) - Pending Review Specialty Diagnoses / Procedures Referred By Jesse knox Referred To Contact Radiology. Diagnoses Encounter for follow-up ultrasound of anatomy Procedures [facility] US Comprehensive Single F/U Kenna Silva MD [address] [place] [address] Referral ID Status Reason Start Date Expiration Date V isits Requested Visits Authorized [id number] Pending Review 04/23/2023 04/22/2024 1 1 Reason for Visit * Reason Comments Ultrasound L2-BMI Encounter Details Date Type Department Care Team (Late st Contact Info) Description 04/23/2023 8:30 AM CDT Office Visit [facility] [place] [address] [facility] [address] [place] [address] Mikala Iraheta MD [facility] [address] [place] [address] Kenna Silva MD [address] [place] [address] Obesity in , antepartum (Primary [...] in the Maternal- Medicine Center at the [facility] today. For a detailed report of the ultrasound examination, please see the ultrasound report which can be found under the imaging tab. If you have questions regarding today's evaluation or if we can be of further service, please contact the Maternal- Medicine Center. Kenna Silva MD Family Day Care Provider, PRINT PROJECT MANAGER Maternal- Medicine [phone] (Pager) documented in this encounter Miscellaneous Notes * Addendum Note - Sarah King RN - 04/23/2023 8:30 AM CDTAddended by: SARAH KING on: 04/23/2023 09:02 AM Modules accepted: Orders documented in this encounter Plan of Treatment Not on file documented as of this encounter Results * MFM US Comprehensive Single F/U (05/14/2023 8:53 AM VOICER) Anatomical Region Laterality Modality Ultrasound 05/14/2023 7:56 AM VOICER Impressions 05/14/2023 11:04 AM VOICER IMPRESSION ----- 1. Queen intrauterine at 22w [...] for gestational age. Narrative 05/14/2023 11:04 AM VOICER ?Comp Follow Up ----- Pat. Name: GABRIEL MORSE ? Study Date: ??05/14/2023 7:56am Pat. NO: ??[id number] ?Referring ??: MIKALA IRAHETA Site: ??[facility] ? Ambulance Attendant: Kitty Gray RDMS : ??2005 ?Age: ?? [...] 1 lb 1 ?oz EFW by ?Hadlock ([id number]-FL) Head / Face / Neck Biometry: Teletypewriter Operator ? 6.7 ? mm CM ?6.1 ? [...] view. Aortic arch view. Ductal arch view. 8-vhbezp-lrphtzo view. ? Diaphragm. Abdomen ? Stomach. Kidneys. [...] complete weekly UA Dopplers/ surveillance locally in [place] and return to our clinic every 3 [...] medical record, and communicating with other health physician primary care sports medicine and/or care coordination. Please see note for details. Procedure Note Teresita Jeong MD - 05/14/2023 Comp Follow Up ----- Pat. Name: GABRIEL MORSE Study Date: 05/14/2023 7:56am Pat. NO: [id number] Referring MD: MIKALA IRAHETA Site: [facility] Ambulance Attendant: Kitty Gray RDMS : 2005 Age: 18 [...] 1 lb 1 oz EFW by Hadlock ([id number]-GD-XO-FL) Head / Face / Neck Biometry: Teletypewriter Operator 6.7 mm CM 6.1 mm Nasal bone 7.2 mm ANATOMY ----- The following structures appear normal: Head / Neck Cranium. Head size. Head shape.Lateral ventricles. Midline falx. Cavum septi pellucidi. Cerebellum.Cisterna magna. Thalami. Face Lips. Profile. Nose. Maxilla.Mandible. Orbits. Lens. Heart / Thorax 4-chamber view. RVOT view. LVOT view.Aortic arch view. Ductal arch view. 7-iznyqv-ywezcdm view. Diaphragm. Abdomen Stomach. Kidneys. Bladder. Spine [...] her complete weekly UA Dopplers/antenatalsurveillance locally in [place] and return to our clinic every 3 [...] electronic medical record, andcommunicating with other health physician primary care sports medicine and/or carecoordination. Please see note for details. [...] reassuring for gestational age. Kenna Silva MD [facility] US ORDERABLE S documented in this encounter Visit Diagnoses Diagnosis Obesity in , antepartum- Primary Obesity complicating , childbirth, or the puerperium, antepartum condition or complication BMI 40.0-44.9, adult (H) Body Mass Index 40.0-44.9, adult Encounter for follow-up ultrasound of anatomy Encounter for follow-up ultrasound of anatomy documented in this encounter Care Teams Solar Panel Technician Relationship Specialty Start Date End Date Joseph Smith MD [address] [facility] [address] [place] [phone] PCP - General 03 documented as of this encounter
--- OUTSIDE RECORDS SUMMARY | 2023-07-22 09:41 | XMS_ITS | Encounter Summary ---
Author Name Unknown Organization [place] Address [facility] [place] [address] Care Team Providers Care Encapsulator Name Role Phone Joseph Smith MD Primary Care Provider [phone] Reason for Referral * Diagnostic Imaging Ultrasound (Routine) - Pending Review Specialty Diagnoses / Procedures Referred By Jesse knox Referred To Contact Radiology. Diagnoses related condition, antepartum Procedures [facility] US Comprehensive Single Mikala Iraheta MD [facility] [address] [place] [address] Fax: Referral ID Status Reason Start Date Expiration Date V isits Requested Visits Authorized [id number] Pending Review 03/27/2023 03/26/2024 1 1 Reason for Visit * Diagnostic Imaging Ultrasound (Routine) - Pending Review Specialty Diagnoses / Procedures Referred By Jesse knox Referred To Contact Radiology. Diagnoses related condition, antepartum Procedures [facility] US Comprehensive Single Mikala Iraheta MD [facility] [address] [place] [address] Fax: Referral ID Status Reason Start Date Expiration Date V isits Requested Visits Authorized [id number] Pending Review 03/27/2023 03/26/2024 1 1 Encounter Details Date Type Department Care Team (Latest Contact Info) Description 04/23/2023 7:53 AM CDT - 04/23/2023 11:59 PM CDT Hospital Encounter [facility] Maternal Medicine Center [place] [address] [place] [address] Mikala Iraheta MD [facility] [address] [place] [address] Kenna Silva MD [address] [place] [address] related condition, antepartum Discharge Disposition: [...] Procedure Name Priority Date/Time Associated Diagnosis Comments [facility] COMPREHENSIVE SINGLE Routine 04/23/2023 8:44 AM CDT related condition, antepartum documented in this encounter Results * [facility] Comprehensive Single (04/23/2023 8:44 AM CDT) [...] ? Study Date: ??04/23/2023 7:58am Pat. NO: ??[id number] ?Referring ??: MIKALA IRAHETA Site: ??[facility] ? Director Process Improvement: Kitty Gray RDMS : ??2005 ?Age: ?? [...] lb 10 ? oz EFW by ?Hadlock ([id number]-MB-[id number]-FL) Head / Face / Neck Biometry: Research And Insights Executive ? 7.6 ? mm CM ?5.0 ? [...] / Thorax ?4-chamber view. Aortic arch view. 3-ypfrur-mfpanjh view. ? Diaphragm. Spine ?Sacral spine. Extremities [...] medical record, and communicating with other health health care attorney and/or care coordination. Please see note for details. Procedure Note Kenna Silva MD - 04/23/2023 Comprehensive ----- Pat. Name: GABRIEL MORSE Study Date: 04/23/2023 7:58am Pat. NO: [id number] Referring MD: MIKALA IRAHETA Site: [facility] Director Process Improvement: Kitty Gray RDMS : 2005 Age: 18 [...] 0 lb 10 oz EFW by Hadlock ([id number]-QC-HU-FL) Head / Face / Neck Biometry: Research And Insights Executive 7.6 mm CM 5.0 mm Nuchal fold [...] Heart / Thorax 4-chamber view. Aortic arch view.8-lxdnhm-uaflklk view. Diaphragm. Spine Sacral spine. Extremities / [...] electronic medical record, andcommunicating with other health health care attorney and/or carecoordination. Please see note for details. [...] appears long and closed. Mikala Iraheta MD [facility] US ORDERABLE S documented in this encounter Visit Diagnoses Diagnosis related condition, antepartum documented in this encounter Care Teams Encapsulator Relationship Specialty Start Date End Date Joseph Smith MD [address] [facility] [address] [place] [address] PCP - General 03 documented as of this encounter
--- OUTSIDE RECORDS SUMMARY | 2023-07-22 09:41 | XMS_ITS | Encounter Summary ---
Author Name Unknown Organization [place] Address [facility] [place] [address] Care Team Providers Care Garbage Pick Up Man Name Role Phone Joseph Smith MD Primary Care Provider [phone] Kenna Silva MD Unavailable [phone] Reason for Referral * Diagnostic Imaging Ultrasound (Routine) - Pending Review Specialty Diagnoses / Procedures Referred By Contac t Referred To Contact Radiology. Diagnoses Encounter for follow-up ultrasound of anatomy Procedures [facility] US Comprehensive Single F/U Kenna Silva MD [address] [facility] [address] [address] Referral ID Status Reason Start Date Expiration Date V isits Requested Visits Authorized [id number] Pending Review 04/23/2023 04/22/2024 1 1 NGUAL MANAGER Reason for Visit * Diagnostic Imaging Ultrasound (Routine) - Pending Review Specialty Diagnoses / Procedures Referred By Contac t Referred To Contact Radiology. Diagnoses Encounter for follow-up ultrasound of anatomy Procedures [facility] US Comprehensive Single F/U Kenna Silva MD [address] [facility] [address] [place] [address] Referral ID Status Reason Start Date Expiration Date V isits Requested Visits Authorized [id number] Pending Review 04/23/2023 04/22/2024 1 1 Encounter Details Date Type Department Care Team (Latest Contact Info) Description 05/14/2023 7:51 AM BILINGUAL MANAGER - 05/14/2023 11:59 PM BILINGUAL MANAGER Hospital Encounter [facility] Maternal Medicine [facility] Center [facility] [address] [facility] [address] [place] [address] Kenna Silva MD [address] [place] [address] Carter Win MD [address] [place] [address] Teresita Jeong MD [address] [facility] [address] [place] [address] Encounter for follow-up ultrasound of [...] Procedure Name Priority Date/Time Associated Diagnosis Comments [facility] US COMPREHENSIVE SINGLE F/U Routine 05/14/2023 8:53 AM BILINGUAL MANAGER Encounter for follow-up ultrasound of anatomy documented in this encounter Results * [facility] US Comprehensive Single F/U (05/14/2023 8:53 AM BILINGUAL MANAGER) Anatomical Region Laterality Modality Ultrasound 05/14/2023 7:56 AM BILINGUAL MANAGER Impressions 05/14/2023 11:04 AM BILINGUAL MANAGER IMPRESSION ----- 1. Queen intrauterine at 22w [...] for gestational age. Narrative 05/14/2023 11:04 AM BILINGUAL MANAGER ?Comp Follow Up ----- Pat. Name: GABRIEL MORSE ? Study Date: ??05/14/2023 7:56am Pat. NO: ??[id number] ?Referring ??: GEMMA IRAHETA Site: ??[facility] ? Pockets And Pieces Necktie Operator: Kitty Gray RDMS : ??2005 ?Age: [...] 1 lb 1 ?oz EFW by ?Hadlock (CHO-SE-KB-FL) Head / Face / Neck Biometry: Granite Worker ? 6.7 ? mm CM ?6.1 ? [...] view. Aortic arch view. Ductal arch view. 6-avpena-uamgjvm view. ? Diaphragm. Abdomen ? Stomach. Kidneys. [...] complete weekly UA Dopplers/ surveillance locally in [place] and return to our clinic every 3 [...] medical record, and communicating with other health nurse wound care and/or care coordination. Please see note for details. Procedure Note Teresita Jeong MD - 05/14/2023 Comp Follow Up ----- Pat. Name: GABRIEL MORSE Study Date: 05/14/2023 7:56am Pat. NO: [id number] Referring MD: GEMMA IRAHETA Site: [facility] Pockets And Pieces Necktie Operator: Kitty Gray RDMS : 2005 Age: [...] 1 lb 1 oz EFW by Hadlock ([id number]-IJ-[id number]-FL) Head / Face / Neck Biometry: Granite Worker 6.7 mm CM 6.1 mm Nasal bone 7.2 mm ANATOMY ----- The following structures appear normal: Head / Neck Cranium. Head size. Head shape.Lateral ventricles. Midline falx. Cavum septi pellucidi. Cerebellum.Cisterna magna. Thalami. Face Lips. Profile. Nose. Maxilla.Mandible. Orbits. Lens. Heart / Thorax 4-chamber view. RVOT view. LVOT view.Aortic arch view. Ductal arch view. 1-zdztuh-oqzlrvf view. Diaphragm. Abdomen Stomach. Kidneys. Bladder. Spine [...] her complete weekly UA Dopplers/antenatalsurveillance locally in [place] and return to our clinic every 3 [...] electronic medical record, andcommunicating with other health nurse wound care and/or carecoordination. Please see note for details. [...] anatomy documented in this encounter Care Teams Garbage Pick Up Man Relationship Specialty Start Date End Date Joseph Smith MD [address] [facility] 160 [place] [phone] PCP - General 03 Kenna Silva MD [address] [id number] Assigned OBGYN Provider 05/03/23 documented as of this encounter
--- OUTSIDE RECORDS SUMMARY | 2023-07-22 09:41 | XMS_ITS | Encounter Summary ---
Author Name Unknown Organization [place] Address [facility] [place] [address] Care Team Providers Care Lawyer Real Estate Name Role Phone Joseph Smith MD Primary Care Provider [phone] Kenna Silva MD Unavailable [phone] Teresita Jeong MD Unavailable Encounter Details Date Type Department Care Team (Late st Contact Info) Description 2003 [place] [address] [place] [address] Joseph Smith MD [address] [place] [address] [facility] (Primary Dx) [...] Primary documented in this encounter Care Teams Lawyer Real Estate Relationship Specialty Start Date End Date Joseph Smith MD [address] [place] [address] PCP - General 03 Kenna Silva MD [address] [facility] [address] [place], [place] [address] Assigned OBGYN Provider 05/03/23 Teresita Jeong MD [address] [facility] [address] [place] [address] Assigned OBGYN Provider 05/24/23 documented as of this encounter
--- OUTSIDE RECORDS SUMMARY | 2023-07-22 09:41 | XMS_ITS | Encounter Summary ---
Author Name Unknown Organization [place] Address [address] [facility] [place] [address] Care Team Providers Care Shrink Pit Operator Name Role Phone Joseph Smith MD Primary Care Provider [phone] Kenna Silva MD Unavailable [phone] Encounter Details Date Type Department Care [...] on filedocumented in this encounter Care Teams Shrink Pit Operator Relationship Specialty Start Date End Date Joseph Smith MD [address] [facility] [address] [place] [address] PCP - General 03 Kenna Silva MD [address] [facility] [address] [place] [address] Assigned OBGYN Provider 05/03/23 documented as of this encounter
--- OUTSIDE RECORDS SUMMARY | 2023-07-22 09:41 | XMS_ITS | Encounter Summary ---
Author Name Unknown Organization [place] Address [address] [place] [address]. [place] [address] Care Team Providers Care Municipal Services Manager Name Role Phone Joseph Smith MD Primary Care Provider [phone] Reason for Referral * Diagnostic Imaging Ultrasound (Routine) - Pending Review Specialty Diagnoses / Procedures Referred By Jesse knox Referred To Contact Radiology. Diagnoses related condition, antepartum Procedures MFM US Comprehensive Single Mikala Iraheta MD [facility] [address] [place] [address] Fax: Referral ID Status Reason Start Date Expiration Date V isits Requested Visits Authorized [id number] Pending Review 03/27/2023 03/26/2024 1 1 * Consultation (Routine: Next available opening) - Pending Review Specialty Diagnoses / Procedures Referred By Jesse knox Referred To Contact Diagnoses related condition, antepartum Mikala Iraheta MD [facility] [address] [place] [address] Fax: Maternal Med [address] [address] Referral ID Status Reason Start Date Expiration Date V isits Requested Visits Authorized [id number] Pending Review 03/27/2023 03/26/2024 1 1 Question Answer Preferred Location: [facility] - Janny KAITLYNN 08/25/2023 Ultrasound Comprehensive US (>than 18 weeks GA) US PROC NONE MFM Issue OTHER (enter details in Comments) - BMI MFM Consultation (unrelated to Ultrasound findings): No Inflammatory Bowel Disease Clinic: Joint MFM and GI Consultation: No Chronic Kidney Disease: Joint MFM and Nephrology Consultation No Genetic Counseling Consultation: No fax Mikala Iraheta, [facility], Comments There is no height or weight [...] (Latest Contact Info) Description 03/27/2023 Transcribe Orders [facility] Maternal Medicine Center [address] [address] Mikala Iraheta MD [facility] [address] [place] [address] related condition, antepartum (Primary Dx) Social History [...] documented as of this encounter Results * [facility] US Comprehensive Single (04/23/2023 8:44 AM [...] ? Study Date: ??04/23/2023 7:58am Pat. NO: ??[id number] ?Referring ??MD: MIKALA IRAHETA Site: ??[facility] ? Rn Social Services: Kitty Gray RDMS : ??2005 ?Age: ?? [...] lb 10 ? oz EFW by ?Hadlock ([id number]) Head / Face / Neck Biometry: Flight Attendant Inflight Services ? 7.6 ? mm CM ?5.0 ? [...] / Thorax ?4-chamber view. Aortic arch view. 4-tfilyo-townops view. ? Diaphragm. Spine ?Sacral spine. Extremities [...] medical record, and communicating with other health rn homecare and/or care coordination. Please see note for details. Procedure Note Kenna Silva MD - 04/23/2023 Comprehensive ----- Pat. Name: GABRIEL MORSE Study Date: 04/23/2023 7:58am Pat. NO: [id number] Referring MD: MIKALA IRAHETA Site: [employer] Rn Social Services: Kittypaul Gray RDMS : 2005 Age: 18 [...] 0 lb 10 oz EFW by Hadlock ([id number]) Head / Face / Neck Biometry: Flight Attendant Inflight Services 7.6 mm CM 5.0 mm Nuchal fold [...] Heart / Thorax 4-chamber view. Aortic arch view.4-jgbvft-amshotg view. Diaphragm. Spine Sacral spine. Extremities / [...] electronic medical record, andcommunicating with other health rn homecare and/or carecoordination. Please see note for details. [...] long and closed. Mikala Sonny Iraheta MD [facility] US ORDERABLE S documented in this encounter Visit Diagnoses Diagnosis related condition, antepartum- Primary related condition, antepartum documented in this encounter Care Teams Municipal Services Manager Relationship Specialty Start Date End Date Joseph Smith MD [address] [facility] [address] [place] [address] PCP - General 03 documented as of this encounter
--- OUTSIDE RECORDS SUMMARY | 2023-07-22 09:41 | XMS_ITS | Encounter Summary ---
Author Name Unknown Organization [place] Address [address] [place] [address] Care Team Providers Care Concrete Carpenter Name Role Phone Joseph Smith MD Primary Care Provider [phone] Kenna Silva MD Unavailable [phone] Reason for Referral * Consultation (Routine: Next available opening) - Pending Review Specialty Diagnoses / Procedures Referred By Contac t Referred To Contact Diagnoses growth restriction antepartum Teresita Jeong MD [address] [facility] [address] [place] [address] Referral ID Status Reason Start Date Expiration Date V isits Requested Visits Authorized [id number] Pending Review 05/14/2023 05/13/2024 1 1 Question Answer CTG/NST Yes DEPARTMENT SUPERVISOR * Consultation (Routine: Next available opening) - Pending Review Specialty Diagnoses / Procedures Referred By Contac t Referred To Contact Diagnoses Abnormal ultrasound Teresita Jeong MD [address] [facility] [address] [place] [address] Referral ID Status Reason Start Date Expiration Date V isits Requested Visits Authorized [id number] Pending Review 05/14/2023 05/13/2024 1 1 DEPARTMENT SUPERVISOR Reason for Visit * Reason Comments Ultrasound RL2-subopt Encounter Details Date Type Department Care Team (Late st Contact Info) Description 05/14/2023 8:30 AM BEAM DEPARTMENT SUPERVISOR Office Visit [facility] [place] [address] [place] [address] Kenna Silva MD [address] [place] [address] Carter Win MD [address] [place] [address] Teresita Jeong MD [address] [facility] [address] [place] [address] BMI 40.0-44.9, adult (H) (Primary Dx); [...] Comments Blood Pressure 110/69 05/14/2023 11:37 AM BEAM DEPARTMENT SUPERVISOR Pulse 77 05/14/2023 11:37 AM BEAM DEPARTMENT SUPERVISOR Temperature - - Respiratory Rate - - Oxygen Saturation 99% 05/14/2023 11:37 AM BEAM DEPARTMENT SUPERVISOR Inhaled Oxygen Concentration - - Weight - - Height - - Body Mass Index - - documented in this encounter Progress Notes * Teresita Jeong MD - 05/14/2023 8:30 AM CST Please see the full imaging report from the ViewPoint program under the imaging tab. Teresita Jeong MD Maternal Medicine DEPARTMENT SUPERVISOR documented in this encounter Nursing Notes * Shauna Ibrahim RN - 05/14/2023 8:30 AM CST Patient presents to [facility] for RL2 at 22w6d due to subopt . Positive movement. Denies LOF, vaginal bleeding or cramping/contractions. SBAR given to [facility] MD, see their note in Epic. NST performed today for FGR. Pt plans to do her NSTs and limited US with UAR dopplers in [place]. Spoke with FÁTIMA Crews at [place] to confirm that they can do these appts for the pt. Per Eleonora RN they are able to do NSTs and limited US with UAR dopplers weekly for pt in [place]. Instructed pt to call [place] today to schedule appts. Pt will follow up with [facility] in 3 weeks for a RL2/UAR/NST. DEPARTMENT SUPERVISOR documented in this encounter Plan of Treatment Scheduled Orders Name Type Priority Associated Diagnoses Orde r Schedule Nonstress Test ([facility] Order Only} OB Routine growth restriction antepartum 1 Occurrences starting 05/14/2023 until 05/14/2024 Scheduled Referrals Name Type Priority Associated Diagnoses Orde r Schedule [facility] Genetic Counseling Referral Routine: Next available opening Abnormal ultrasound Expected: 05/14/2023 (Approximate), Expires: 05/14/2024 [facility] Office Visit Referral Routine: Next available opening growth restriction antepartum Expected: 05/14/2023 (Approximate), Expires: 05/14/2024 documented as of this encounter Visit Diagnoses Diagnosis BMI 40.0-44.9, adult (H)- Primary Body Mass Index 40.0-44.9, adult Encounter for follow-up ultrasound of anatomy growth restriction antepartum Abnormal ultrasound Abnormal findings on screening documented in this encounter Care Teams Concrete Carpenter Relationship Specialty Start Date End Date Joseph Smith MD [address] [facility] [address] [place] [phone] PCP - General 03 Kenna Silva MD [address] [facility] [address] [place] [address] Assigned OBGYN Provider 05/03/23 documented as of this encounter
--- OUTSIDE RECORDS SUMMARY | 2023-07-22 09:41 | XMS_ITS | Encounter Summary ---
Author Name Unknown Organization [place] Address [address] [place] [address] Care Team Providers Care Editor In Chief Newspaper Name Role Phone Joseph Smith MD Primary Care Provider [phone] Kenna Silva MD Unavailable [phone] Reason for Visit * Reason Comments Genetic Counseling * Consultation (Routine: Next available opening) - Pending Review Specialty Diagnoses / Procedures Referred By Contac t Referred To Contact Diagnoses Abnormal ultrasound Teresita Jeong MD [address] [facility] [address] [place] [address] Referral ID Status Reason Start Date Expiration Date V isits Requested Visits Authorized [id number] Pending Review 05/14/2023 05/13/2024 1 1 Encounter Details Date Type Department Care Team (Late st Contact Info) Description 05/14/2023 8:45 AM SCHOOL FUNDRAISING DIRECTOR Office Visit [facility] Maternal Medicine Center [place] [address] [facility] [address] [place] [phone] Teresita Jeong MD [address] [facility] [address] [place] [address] Maria Fernanda Asencio GC [address] [facility] [address] [place], [place] [id number] Abnormal ultrasound (Primary Dx) Social History Tobacco [...] Asencio GC - 05/14/2023 8:45 AM CST [facility] Genetic Counseling Consult Patient: Gabriel Morse Date of : 2005 Date of Service: 05/14/23 Gabriel was seen at the [facility] for genetic consultation atthe request of Dr. Teresita Jeong. The indication for genetic counseling is abnormal ultrasoundshowing intrauterine growth restriction. The patient was accompanied to this visit by their mother. The session was conducted in Polish. IMPRESSION/ PLAN 1. Gabriel had genetic screening earlier in this . Her non-invasive test was screen negative or low risk for screened conditions (Down syndrome, trisomy 18, trisomy 13, and sex chromosome aneuploidies). 2. During today's [facility] visit, Gabriel consented to a blood draw for cytomegalovirus (CMV) infectionstudies.Upon review on 05/19/23, Gabriel's order was not drawn. Shannon Polk MS, [facility] called herto see if she wished to [...] include a follow-up CTG/NST and ultrasound with [facility]. The upcoming ultrasound has been scheduled for [...] Intrauterine growth restriction (IUGR) [facility] ultrasound today. IUGR is commonly defined as [...] artery. Evaluation and referral to a pediatric nephrologist would be recommended if there are any [...] and include conditions like fragile X syndrome. Aromas screening is another avenue through which some of these diagnoses may be made. About [place] Screening Carrier screening was not discussed today. If the patient is interested in further discussing the option of carrier screening, MFM would be available to assist in coordination if desired. It was a pleasure to be involved with Gabriel???s care. Uiqi-vq-ngit time of the meeting was 10 minutes. Maria Fernanda Asencio MS, [facility] Maternal Medicine Office: [phone] MFM: [phone] [facility] Patient seen, evaluated and discussed with the Genetic Counseling [place]. I have verified the content of the note, which accurately reflects my assessment of the patient and the plan of care. Supervising Genetic Counselor Shannon Polk KS, [facility] Licensed Genetic Counselor [facility] Maternal Medicine [email or web address] Office: [phone] Pager [phone] MFM: [phone] OL FUNDRAISING DIRECTOR documented in this encounter Plan of Treatment [...] screening documented in this encounter Care Teams Editor In Chief Newspaper Relationship Specialty Start Date End Date Joseph Smith MD [address] [facility] [address] [place] [phone] PCP - General 03 Kenna Silva MD [address] [place], [place] [address] Assigned OBGYN Provider 05/03/23 documented as of this encounter
--- OUTSIDE RECORDS SUMMARY | 2023-07-22 09:41 | XMS_ITS | Clinical Summary ---
Author Name Unknown Organization [place] Address [facility] [place] [address] Care Team Providers Care Rehabilitation Aide/Scheduler Name Role Phone Joseph Smith MD Primary Care Provider [phone] Teresita Jeong MD Unavailable Allergies Active Allergy [...] Type Department Care Team Description 05/27/2023 Telephone [facility] Maternal Medicine [facility] [address] [facility] [address] [place] [address] Maria Fernanda Asencio GC Clinic Care Coordination - Follow-up 05/14/2023 8:45 AM ARCHIVIST POLITICAL HISTORY Office Visit [facility] Medicine [facility] [address] [facility] [address] [place] [phone] Teresita Jeong MD Daykin, Emily C, GC Abnormal ultrasound (Primary Dx) 05/14/2023 8:30 AM ARCHIVIST POLITICAL HISTORY Office Visit [facility] Medicine [place] [address] [facility] [address] [place] [phone] Kenna Silva MD Jones, MD Adenike Pressley Sabrina, MD BMI 40.0-44.9, adult (H) (Primary Dx); Encounter for follow-up ultrasound of anatomy; growth restriction antepartum; Abnormal ultrasound 05/14/2023 7:51 AM ARCHIVIST POLITICAL HISTORY - 05/14/2023 11:59 PM ARCHIVIST POLITICAL HISTORY Hospital Encounter [facility] Medicine [place] [address] [facility] [address] [place] [phone] Kenna Silva MD Jones, MD Adenike Pressley Sabrina, MD Encounter for follow-up ultrasound of anatomy Discharge Disposition: Home or Self Care 05/14/2023 Travel 04/23/2023 8:30 AM CDT Office Visit [facility] Medicine [place] [address] [facility] [address] [place] [phone] Mikala Iraheta MD Sabol, Bethany, MD Obesity in , antepartum (Primary Dx); BMI 40.0-44.9, adult (H); Encounter for follow-up ultrasound of anatomy 04/23/2023 7:53 AM CDT - 04/23/2023 11:59 PM CDT Hospital Encounter [place] [address] [facility] [address] [place] [phone] Mikala Iraheta MD Sabol, Bethany, MD related condition, antepartum Discharge Disposition: Home or Self Care 04/23/2023 Travel from Last 3 Months Immunizations Name Administration [...] Comments Blood Pressure 110/69 05/14/2023 11:37 AM ARCHIVIST POLITICAL HISTORY Pulse 77 05/14/2023 11:37 AM ARCHIVIST POLITICAL HISTORY Temperature 36.6 ??C (97.8 ??F) 10/10/2007 9:00 AM CD T Respiratory Rate 40 2003 8:00 AM CDT Oxygen Saturation 99% 05/14/2023 11:37 AM ARCHIVIST POLITICAL HISTORY Inhaled Oxygen Concentration - - Weight 19.1 [...] 2021 MATERNAL SCREENING DISCUSSION 02/13/2023 COVID-19 Vaccine ( season) 2023 08/26/2020, 08/05/2020 INFLUENZA VACCINE (#1) 2023 04/25/2004, 2003 OBGCT (OB) 05/22/2023 PHQ-2 (once per calendar year) 2023 RSV VACCINE ( & 60+) (1 - Risk 1-dose series) 07/17/2023 DTAP/TDAP/TD IMMUNIZATION (7 - Td or Tdap) [...] on patient's age to complete this topic Procedures Procedure Name Priority Date/Time Associated Diagnosis Comments LAB RESULT - HIM SCAN 05/21/2023 12:00 AM ARCHIVIST POLITICAL HISTORY [facility] US COMPREHENSIVE SINGLE F/U Routine 05/14/2023 8:53 AM ARCHIVIST POLITICAL HISTORY Encounter for follow-up ultrasound of anatomy [facility] US COMPREHENSIVE SINGLE Routine 04/23/2023 8:44 AM CDT related condition, antepartum from Last 3 Months Results * LAB RESULT - HIM SCAN (05/21/2023 12:00 AM ARCHIVIST POLITICAL HISTORY) 05/21/2023 Provider Outside NON-BEAKER LAB TE STING * [facility] US Comprehensive Single F/U (05/14/2023 8:53 AM ARCHIVIST POLITICAL HISTORY) Anatomical Region Laterality Modality Ultrasound 05/14/2023 7:56 AM ARCHIVIST POLITICAL HISTORY Impressions 05/14/2023 11:04 AM ARCHIVIST POLITICAL HISTORY IMPRESSION ----- 1. Queen intrauterine at 22w [...] for gestational age. Narrative 05/14/2023 11:04 AM ARCHIVIST POLITICAL HISTORY ?Comp Follow Up ----- Pat. Name: LOIS AMBER ? Study Date: ??05/14/2023 7:56am Pat. NO: ??[id number] ?Referring ??: MIKALA IRAHETA Site: ??[facility] ? Assistant Professor Of Marine Biology: Kitty Gray RDMS : ??2005 ?Age: ?? [...] 1 lb 1 ?oz EFW by ?Hadlock ([id number]) Head / Face / Neck Biometry: Fundraiser ? 6.7 ? mm CM ?6.1 ? [...] view. Aortic arch view. Ductal arch view. 6-gsjitz-gyxbuog view. ? Diaphragm. Abdomen ? Stomach. Kidneys. [...] within normal limits. Of note, Meckinsue was only 6 Ib when she was [...] complete weekly UA Dopplers/ surveillance locally in [place] and return to our clinic every 3 [...] medical record, and communicating with other health aged or disabled care worker and/or care coordination. Please see note for details. Procedure Note Teresita Jeong MD - 05/14/2023 Comp Follow Up ----- Pat. Name: AMBER MORSE Study Date: 05/14/2023 7:56am Pat. NO: [id number] Referring MD: MIKALA IRAHETA Site: [facility] Assistant Professor Of Marine Biology: Kitty Gray RDMS : 2005 Age: 18 [...] 1 lb 1 oz EFW by Hadlock ([id number]) Head / Face / Neck Biometry: Fundraiser 6.7 mm CM 6.1 mm Nasal bone 7.2 mm ANATOMY ----- The following structures appear normal: Head / Neck Cranium. Head size. Head shape.Lateral ventricles. Midline falx. Cavum septi pellucidi. Cerebellum.Cisterna magna. Thalami. Face Lips. Profile. Nose. Maxilla.Mandible. Orbits. Lens. Heart / Thorax 4-chamber view. RVOT view. LVOT view.Aortic arch view. Ductal arch view. 9-xjqcrf-cdohdmm view. Diaphragm. Abdomen Stomach. Kidneys. Bladder. Spine [...] today was within normal limits. Of note, Amber was only6 Ib when she was born [...] her complete weekly UA Dopplers/antenatalsurveillance locally in [place] and return to our clinic every 3 [...] electronic medical record, andcommunicating with other health aged or disabled care worker and/or carecoordination. Please see note for details. [...] reassuring for gestational age. Kenna Silva MD [facility] US ORDERABLE S [facility] US Comprehensive Single (04/23/2023 8:44 AM [...] Narrative 04/23/2023 8:54 AM CDT ?Comprehensive ----- Sherry. Name: AMBER MORSE ? Study Date: ??04/23/2023 7:58am Pat. NO: ??[id number] ?Referring ??: MIKALA IRAHETA Site: ??[place] ? Assistant Professor Of Marine Biology: Kitty Gray RDMS : ??2005 ?Age: ?? [...] CRAIN ?57.0 ?mm ? 18w 5d ?Nicolaides ?163.4 ?mm ?19w 1d ?Hadlock Cerebellum tr ?18.6 ? mm ?18w 2d ?Nicolaides AC ?132.0 ?mm ?18w 5d ?13% ?Hadlock Femur ?32.7 ? mm ?20w 1d ?Hadlock Humerus ?32.2 ?mm ? 20w 6d ?Asif Weight Calculation: EFW ? 290 ? g ? 22% ?Hadlock EFW (lb,oz) ? 0 lb 10 ? oz EFW by ?Hadlock ([id number]-FL) Head / Face / Neck Biometry: Fundraiser ? 7.6 ? mm CM ?5.0 ? [...] / Thorax ?4-chamber view. Aortic arch view. 1-wbugbs-gsyncbg view. ? Diaphragm. Spine ?Sacral spine. Extremities [...] medical record, and communicating with other health aged or disabled care worker and/or care coordination. Please see note for details. Procedure Note Kenna Silva MD - 04/23/2023 Comprehensive ----- Pat. Name: AMBER MORSE Study Date: 04/23/2023 7:58am Pat. NO: [id number] Referring MD: MIKALA IRAHETA Site: [facility] Assistant Professor Of Marine Biology: Kitty Gray RDMS : 2005 Age: 18 [...] 0 lb 10 oz EFW by Hadlock ([id number]-[id number]-FL) Head / Face / Neck Biometry: Fundraiser 7.6 mm CM 5.0 mm Nuchal fold [...] Heart / Thorax 4-chamber view. Aortic arch view.1-ssrhoz-tvxalwz view. Diaphragm. Spine Sacral spine. Extremities / [...] electronic medical record, andcommunicating with other health aged or disabled care worker and/or carecoordination. Please see note for details. [...] appears long and closed. Mikala Iraheta MD [facility] US ORDERABLE S from Last 3 Months Care Teams Rehabilitation Aide/Scheduler Relationship Specialty Start Date End Date Joseph Smith MD [address] [facility] [address] [place] [address] PCP - General 03 Teresita Jeong MD [address] [place] [address] [address] [place] [address] Assigned OBGYN Provider 05/24/23
--- OUTSIDE RECORDS SUMMARY | 2023-07-22 09:41 | XMS_ITS | Encounter Summary ---
Author Name Unknown Organization [place] Address [address] [place] [address] Care Team Providers Care Bean Sorter Name Role Phone Joseph Smith MD Primary Care Provider [phone] Encounter Details Date Type Department Care Team [...] on filedocumented in this encounter Care Teams Bean Sorter Relationship Specialty Start Date End Date Joseph Smith MD [address] [place] [address] PCP - General 03 documented as of this encounter
--- OUTSIDE RECORDS SUMMARY | 2023-07-22 09:41 | XMS_ITS | Encounter Summary ---
Author Name Unknown Organization [place] Address [facility] [place] [address] Care Team Providers Care Liability Claims Examiner Name Role Phone Joseph Smith MD Primary Care Provider [phone] Reason for Visit * Reason Comments Ultrasound L2-BMI Encounter Details Date Type Department Care Team (Late st Contact Info) Description 04/15/2023 PRE VISIT [facility] Maternal Medicine Center [place] [address] [place] [address] Shauna Ibrahim, RN Ultrasound (L2-BMI) [...] on filedocumented in this encounter Care Teams Liability Claims Examiner Relationship Specialty Start Date End Date Joseph Smith MD [address] [place] [phone] PCP - General 03 documented as of this encounter
--- OUTSIDE RECORDS SUMMARY | 2023-07-22 09:41 | XMS_ITS | Encounter Summary ---
Author Name Unknown Organization [place] Address [address] [facility] [place] [address] Care Team Providers Care Surgical Product Sales Consultant Name Role Phone Joseph Smith MD Primary Care Provider [phone] Teresita Jeong MD Unavailable Reason for Visit * Reason Onset Date Comments Clinic Care Coordination - Follow-up 05/27/2023 Encounter Details Date Type Department Care Team (Late st Contact Info) Description 05/27/2023 Telephone [facility] Maternal Medicine Center [place] [address] [facility] [address] [place] [address] Maria Fernanda Asencio, [address] [place] [address] [address] [place] [address] Clinic Care Coordination - Follow-up [...] on filedocumented in this encounter Care Teams Surgical Product Sales Consultant Relationship Specialty Start Date End Date Joseph Smith MD [address] [facility] 160 [place] [address] PCP - General 03 Teresita Jeong MD [address] [facility] [address] [place], [place] [address] Assigned OBGYN Provider 05/24/23 documented as of this encounter
--- NOTE | 2023-07-22 09:45 | CRLHL7_ITS ---
For Patients: As a result of the Century Cures Act, medical imaging exams and procedure reports are released immediately into your electronic medical record. You may view this report before your referring provider. If you have questions, please contact your health care provider. CLINICAL HISTORY: IUGR. LMP: 12/05/2022. KAITLYNN by LMP: 09/11/2023. GA: 32w, 5d. FINDINGS: position: Vertex. Cervix: Not visualized. Placenta/cord: Fundal posterior Technique: Transabdominal. Umbilical Artery s/d ratio: 2.5 Amniotic Fluid: 11.9 cm JANEY. 3.8 SDP. BPD: 8.3 cm. 33w 4d, 67 percent. HC: 30.0 cm. 33w 2d, 26 percent. AC: 27.0 cm. 31w 1d, 11 percent. FL: 6.3 cm. 32w 5d, 38 percent. FL/AC: 23.43 percent. HC/AC Ratio: 1.11. age by this US: 32w 5d. KAITLYNN by this US: 09/11/2023. EFW: 1886g. Weight: 4 lbs, 3 oz. Percentile by KAITLYNN: 21 percent. BIOPHYSICAL PROFILE: Total score: 8. Gross body movements: 2. tone: 2. Respiratory activity: 2. Amniotic fluid: 2. IMPRESSION: 1. Estimated weight is at the 21st percentile. 2. Normal biophysical profile score of 8/8. 3. Umbilical artery SD ratio 2.5. OLESYA DIEHL M.D. [email or web address] be/Dictated by: Olesya Diehl MD @ 07/22/2023 2:29:00 PM (Electronically Signed)
== END 2023-07-22 09:40 | disposition home or self-care (01) ==
LOC: US 09:39
PROVIDERS: PCP Nurse Practitioner Family; Visit Provider Obstetrics & Gynecology
DX: O36.5930 Maternal care for other known or suspected poor fetal growth, third trimester, not applicable or unspecified (principal); Z3A.32 32 weeks gestation of pregnancy
CPT/HCPCS: 76816; 76819; 76820

== ENCOUNTER 2023-07-29 09:34 | Outpatient (CLI) | payer OTHER, SELFPAY ==
--- OUTSIDE RECORDS SUMMARY | 2023-07-29 09:37 | XMS_ITS | Referral Summary ---
Author Name Unknown Organization [place] Address [address] [place] [address] Care Team Providers Care Deep Fryer Assembler Name Role Phone Joseph Smith MD Primary Care Provider [phone] Teresita Jeong MD Unavailable Encounters Date Type Department Care Team Description 05/27/2023 Telephone [facility] Medicine [facility] [address] [place] [address] Maria Fernanda Asencio GC Clinic Care Coordination - Follow-up 05/14/2023 8:45 AM BENZENE WASHER Office Visit [facility] Medicine [facility] [address] [employer] [address] [place] [phone] Teresita Jeong MD Daykin, Emily C, GC Abnormal ultrasound (Primary Dx) 05/14/2023 Travel 05/14/2023 8:30 AM BENZENE WASHER Office Visit [facility] Medicine [facility] [address] [facility] [address] [place] [phone] Kenna Silva MD Jones, Cresta Wedel, MD Burn, Sabrina, MD BMI 40.0-44.9, adult (H) (Primary Dx); Encounter for follow-up ultrasound of anatomy; growth restriction antepartum; Abnormal ultrasound 05/14/2023 7:51 AM BENZENE WASHER - 05/14/2023 11:59 PM BENZENE WASHER Hospital Encounter [facility] M[facility] Medicine [facility] [place] [address] [place] [address] Kenna Silva MD Jones, MD Adenike Pressley Sabrina, MD Encounter for follow-up ultrasound of anatomy Discharge Disposition: Home or Self Care from Last 3 Months Allergies Active Allergy Reactions Criticality Noted Date Comments No Known Allergies 2003 Medications Medication Sig Dispensed Refills Start Date End Date Status TYLENOL DROPS SOLN 100 MG/ML OR prn [...] Comments Blood Pressure 110/69 05/14/2023 11:37 AM BENZENE WASHER Pulse 77 05/14/2023 11:37 AM BENZENE WASHER Temperature 36.6 ??C (97.8 ??F) 10/10/2007 9:00 AM CD T Respiratory Rate 40 2003 8:00 AM CDT Oxygen Saturation 99% 05/14/2023 11:37 AM BENZENE WASHER Inhaled Oxygen Concentration - - Weight 19.1 kg (42 lb) 10/10/2007 9:00 AM CDT Height 108.6 cm (3' 6.75) 10/10/2007 9:00 AM CD T Body Mass Index 16.16 10/10/2007 9:00 AM CDT Plan of Treatment Not on file Procedures Procedure Name Priority Date/Time Associated Diagnosis Comments LAB RESULT - HIM SCAN 05/21/2023 12:00 AM BENZENE WASHER [facility] US COMPREHENSIVE SINGLE F/U Routine 05/14/2023 8:53 AM BENZENE WASHER Encounter for follow-up ultrasound of anatomy from Last 3 Months Results * LAB RESULT - HIM SCAN (05/21/2023 12:00 AM BENZENE WASHER) 05/21/2023 Provider Outside NON-BEAKER LAB TE STING * [facility] US Comprehensive Single F/U (05/14/2023 8:53 AM BENZENE WASHER) Anatomical Region Laterality Modality Ultrasound 05/14/2023 7:56 AM BENZENE WASHER Impressions 05/14/2023 11:04 AM BENZENE WASHER IMPRESSION ----- 1. Queen intrauterine at 22w [...] for gestational age. Narrative 05/14/2023 11:04 AM BENZENE WASHER ?Comp Follow Up ----- Pat. Name: GABRIEL MORSE ? Study Date: ??05/14/2023 7:56am Pat. NO: ??[id number] ?Referring ??MD: GEMMA IRAHETA Site: [facility] ? Acute Care Surgeon: Kitty Gray RDMS : ??2005 ?Age: ?? [...] 1 lb 1 ?oz EFW by ?Hadlock ([id number]) Head / Face / Neck Biometry: Shell Reprint Operator ? 6.7 ? mm CM ?6.1 [...] view. Aortic arch view. Ductal arch view. 5-fvbwge-deyajpk view. ? Diaphragm. Abdomen ? Stomach. Kidneys. [...] abnormalities. Her dating was reviewed (LMP c/w ). She had a low risk cell free [...] complete weekly UA Dopplers/ surveillance locally in [place] and return to our clinic every 3 [...] medical record, and communicating with other health lawn care professional and/or care coordination. Please see note for details. Procedure Note Teresita Jeong MD - 05/14/2023 Comp Follow Up ----- Pat. Name: GABRIEL MORSE Study Date: 05/14/2023 7:56am Pat. NO: [id number] Referring MD: GEMMA IRAHETA Site: [facility] Acute Care Surgeon: Kitty Gray RDMS : 2005 Age: 18 [...] 1 lb 1 oz EFW by Hadlock ([id number]) Head / Face / Neck Biometry: Shell Reprint Operator 6.7 mm CM 6.1 mm Nasal bone 7.2 mm ANATOMY ----- The following structures appear normal: Head / Neck Cranium. Head size. Head shape.Lateral ventricles. Midline falx. Cavum septi pellucidi. Cerebellum.Cisterna magna. Thalami. Face Lips. Profile. Nose. Maxilla.Mandible. Orbits. Lens. Heart / Thorax 4-chamber view. RVOT view. LVOT view.Aortic arch view. Ductal arch view. 4-lzjfit-gslfrbj view. Diaphragm. Abdomen Stomach. Kidneys. Bladder. Spine [...] today was within normal limits. Of note, Gabriel was only4 Ib when she was born [...] her complete weekly UA Dopplers/antenatalsurveillance locally in [place] and return to our clinic every 3 [...] electronic medical record, andcommunicating with other health lawn care professional and/or carecoordination. Please see note for details. [...] for gestational age. Kenna Silva MD [facility] US ORDERABLE S from Last 3 Months Care Teams Deep Fryer Assembler Relationship Specialty Start Date End Date Joseph Smith MD [address] [facility] [address] [place] [address] PCP - General 03 Teresita Jeong MD [address] [place] [address] Assigned OBGYN Provider 05/24/23
--- OUTSIDE RECORDS SUMMARY | 2023-07-29 09:37 | XMS_ITS | Clinical Summary ---
Author Name Unknown Organization [place] Address [facility] [place] [address] Care Team Providers Care Tuck Pointer Helper Name Role Phone Joseph Smith MD Primary Care Provider [phone] Teresita Jeong MD Unavailable Allergies Active Allergy [...] Type Department Care Team Description 05/27/2023 Telephone [facility] Maternal Medicine [facility] [address] [employer] [employer] [facility] [address] [place] [address] Maria Fernanda Asencio GC Clinic Care Coordination - Follow-up 05/14/2023 8:45 AM TRANSCRIBING MACHINE OPERATOR Office Visit [facility] Medicine [facility] [address] [facility] [address] [place] [phone] Teresita Jeong MD Daykin, Emily C, GC Abnormal ultrasound (Primary Dx) 05/14/2023 8:30 AM TRANSCRIBING MACHINE OPERATOR Office Visit [facility] Maternal Medicine [facility] [address] [facility] [address] [place] [address] Kenna Silva MD Jones, MD Adenike Pressley, MD Teresita BMI 40.0-44.9, adult (H) (Primary Dx); Encounter for follow-up ultrasound of anatomy; growth restriction antepartum; Abnormal ultrasound 05/14/2023 7:51 AM TRANSCRIBING MACHINE OPERATOR - 05/14/2023 11:59 PM TRANSCRIBING MACHINE OPERATOR Hospital Encounter [facility] Maternal Medicine [facility] [address] [facility] [address] [place] [address] Kenna Silva MD Jones, MD Adenike Pressley Sabrina, MD Encounter for follow-up ultrasound of anatomy Discharge Disposition: Home or Self Care 05/14/2023 Travel from Last 3 Months Immunizations Name [...] Comments Blood Pressure 110/69 05/14/2023 11:37 AM TRANSCRIBING MACHINE OPERATOR Pulse 77 05/14/2023 11:37 AM TRANSCRIBING MACHINE OPERATOR Temperature 36.6 ??C (97.8 ??F) 10/10/2007 9:00 AM CD T Respiratory Rate 40 2003 8:00 AM CDT Oxygen Saturation 99% 05/14/2023 11:37 AM TRANSCRIBING MACHINE OPERATOR Inhaled Oxygen Concentration - - Weight 19.1 [...] RESULT - HIM SCAN 05/21/2023 12:00 AM TRANSCRIBING MACHINE OPERATOR [facility] US COMPREHENSIVE SINGLE F/U Routine 05/14/2023 8:53 AM TRANSCRIBING MACHINE OPERATOR Encounter for follow-up ultrasound of anatomy from Last 3 Months Results * LAB RESULT - HIM SCAN (05/21/2023 12:00 AM TRANSCRIBING MACHINE OPERATOR) 05/21/2023 Provider Outside NON-BEAKER LAB TE STING * [facility] US Comprehensive Single F/U (05/14/2023 8:53 AM TRANSCRIBING MACHINE OPERATOR) Anatomical Region Laterality Modality Ultrasound 05/14/2023 7:56 AM TRANSCRIBING MACHINE OPERATOR Impressions 05/14/2023 11:04 AM TRANSCRIBING MACHINE OPERATOR IMPRESSION ----- 1. Queen intrauterine at 22w [...] for gestational age. Narrative 05/14/2023 11:04 AM TRANSCRIBING MACHINE OPERATOR ?Comp Follow Up ----- Pat. Name: TONI MORSEDread ? Study Date: ??05/14/2023 7:56am Pat. NO: ??[id number] ?Referring ??MD: GEMMA IRAHETA Site: ??[facility] ? Super[employer] Former: Kitty Gray RDMS : ??2005 ?Age: ?? [...] 1 lb 1 ?oz EFW by ?Hadlock ([id number]) Head / Face / Neck Biometry: Screwdown Operator ? 6.7 ? mm CM ?6.1 [...] view. Aortic arch view. Ductal arch view. 8-lkxgjy-uxzqpwy view. ? Diaphragm. Abdomen ? Stomach. Kidneys. [...] complete weekly UA Dopplers/ surveillance locally in [place] and return to our clinic every 3 [...] medical record, and communicating with other health care manager cna and/or care coordination. Please see note for details. Procedure Note Teresita Jeong MD - 05/14/2023 Comp Follow Up ----- Pat. Name: GABRIEL MORSE Study Date: 05/14/2023 7:56am Pat. NO: [id number] Referring MD: GEMMA IRAHETA Site: [facility] Supervisor [employer] Former: Kitty GrayMIRANDA : 2005 Age: 18 ----- INDICATION ----- [...] 1 lb 1 oz EFW by Hadlock ([id number]) Head / Face / Neck Biometry: Screwdown Operator 6.7 mm CM 6.1 mm Nasal bone 7.2 mm ANATOMY ----- The following structures appear normal: Head / Neck Cranium. Head size. Head shape.Lateral ventricles. Midline falx. Cavum septi pellucidi. Cerebellum.Cisterna magna. Thalami. Face Lips. Profile. Nose. Maxilla.Mandible. Orbits. Lens. Heart / Thorax 4-chamber view. RVOT view. LVOT view.Aortic arch view. Ductal arch view. 7-wzlypn-kqivjlo view. Diaphragm. Abdomen Stomach. Kidneys. Bladder. Spine [...] her complete weekly UA Dopplers/antenatalsurveillance locally in [place] and return to our clinic every 3 [...] electronic medical record, andcommunicating with other health care manager cna and/or carecoordination. Please see note for details. [...] reassuring for gestational age. Kenna Silva MD [facility] US ORDERABLE S from Last 3 Months Care Teams Tuck Pointer Helper Relationship Specialty Start Date End Date Joseph Smith MD [address] [facility] [address] [place] [address] PCP - General 03 Teresita Jeong MD [address] [place] [address] [address] [place], [place] [id number] Assigned OBGYN Provider 05/24/23
--- OUTSIDE RECORDS SUMMARY | 2023-07-29 09:37 | XMS_ITS | Encounter Summary ---
Author Name Unknown Organization [facility] Address [address] [place] [address] Care Team Providers Care Preservationist Name Role Phone Joseph Smith MD Primary Care Provider [phone] Kenna Silva MD Unavailable [phone] Reason for Referral * Consultation (Routine: Next available opening) - Pending Review Specialty Diagnoses / Procedures Referred By Contac t Referred To Contact Diagnoses growth restriction antepartum Teresita Jeong MD [address] [facility] [address] [place] [address] Referral ID Status Reason Start Date Expiration Date V isits Requested Visits Authorized [id number] Pending Review 05/14/2023 05/13/2024 1 1 Question Answer CTG/NST Yes Y INTERVENTION SCHOOL PSYCHOLOGIST * Consultation (Routine: Next available opening) - Pending Review Specialty Diagnoses / Procedures Referred By Contac t Referred To Contact Diagnoses Abnormal ultrasound Teresita Jeong MD [address] [facility] [address] [place] [address] Referral ID Status Reason Start Date Expiration Date V isits Requested Visits Authorized [id number] Pending Review 05/14/2023 05/13/2024 1 1 Y INTERVENTION SCHOOL PSYCHOLOGIST Reason for Visit * Reason Comments Ultrasound RL2-subopt Encounter Details Date Type Department Care Team (Late st Contact Info) Description 05/14/2023 8:30 AM EARLY INTERVENTION SCHOOL PSYCHOLOGIST Office Visit [facility] Maternal Medicine [facility] [place] [address] [place] [address] Kenna Silva MD [address] [place] [address] Carter Win MD [address] [place] [address] Teresita Jeong MD [address] [facility] [address] [place] [address] BMI 40.0-44.9, adult (H) (Primary [...] Comments Blood Pressure 110/69 05/14/2023 11:37 AM EARLY INTERVENTION SCHOOL PSYCHOLOGIST Pulse 77 05/14/2023 11:37 AM EARLY INTERVENTION SCHOOL PSYCHOLOGIST Temperature - - Respiratory Rate - - Oxygen Saturation 99% 05/14/2023 11:37 AM EARLY INTERVENTION SCHOOL PSYCHOLOGIST Inhaled Oxygen Concentration - - Weight - - Height - - Body Mass Index - - documented in this encounter Progress Notes * Teresita Jeong MD - 05/14/2023 8:30 AM CST Please see the full imaging report from the ViewPoint program under the imaging tab. Teresita Jeong MD Maternal Medicine Y INTERVENTION SCHOOL PSYCHOLOGIST documented in this encounter Nursing Notes * Shauna Ibrahim RN - 05/14/2023 8:30 AM CST Patient presents to [facility] for RL2 at 22w6d due to subopt . Positive movement. Denies LOF, vaginal bleeding or cramping/contractions. SBAR given to [facility] MD, see their note in Epic. NST performed today for FGR. Pt plans to do her NSTs and limited US with UAR dopplers in [place]. Spoke with FÁTIMA Crews at [place] to confirm that they can do these appts for the pt. Per Eleonora RN they are able to do NSTs and limited US with UAR dopplers weekly for pt in [place]. Instructed pt to call [place] today to schedule appts. Pt will follow up with [facility] in 3 weeks for a RL2/UAR/NST. Y INTERVENTION SCHOOL PSYCHOLOGIST documented in this encounter Plan of Treatment Scheduled Orders Name Type Priority Associated Diagnoses Orde r Schedule Nonstress Test ([facility] Order Only} OB Routine growth restriction antepartum 1 Occurrences starting 05/14/2023 until 05/14/2024 Scheduled Referrals Name Type Priority Associated Diagnoses Orde r Schedule [facility] Genetic Counseling Referral Routine: Next available opening Abnormal ultrasound Expected: 05/14/2023 (Approximate), Expires: 05/14/2024 [facility] Office Visit Referral Routine: Next available opening growth restriction antepartum Expected: 05/14/2023 (Approximate), Expires: 05/14/2024 documented as of this encounter Visit Diagnoses Diagnosis BMI 40.0-44.9, adult (H)- Primary Body Mass Index 40.0-44.9, adult Encounter for follow-up ultrasound of anatomy growth restriction antepartum Abnormal ultrasound Abnormal findings on screening documented in this encounter Care Teams Preservationist Relationship Specialty Start Date End Date Joseph Smith MD [address] [facility] 160 [place] [phone] PCP - General 03 Kenna Sivla MD [address] [facility] [address] [place] [address] Assigned OBGYN Provider 05/03/23 documented as of this encounter
--- OUTSIDE RECORDS SUMMARY | 2023-07-29 09:37 | XMS_ITS | Encounter Summary ---
Author Name Unknown Organization [place] Address [address] [facility] [place] [address] Care Team Providers Care Overlock Operator Name Role Phone Joseph Smith MD Primary Care Provider [phone] Kenna Silva MD Unavailable [phone] Encounter Details Date Type Department Care [...] on filedocumented in this encounter Care Teams Overlock Operator Relationship Specialty Start Date End Date Joseph Smith MD [address] [facility] 160 [place] [address] PCP - General 03 Kenna Silva MD [address] [facility] [address] [place] [address] Assigned OBGYN Provider 05/03/23 documented as of this encounter
--- OUTSIDE RECORDS SUMMARY | 2023-07-29 09:37 | XMS_ITS | Encounter Summary ---
Author Name Unknown Organization [place] Address [address] [facility] [place] [address] Care Team Providers Care Sharepoint Engineer Name Role Phone Joseph Smith MD Primary Care Provider [phone] Teresita Jeong MD Unavailable Reason for Visit * Reason Onset Date Comments Clinic Care Coordination - Follow-up 05/27/2023 Encounter Details Date Type Department Care Team (Late st Contact Info) Description 05/27/2023 Telephone [facility] Maternal Medicine Center [place] [address] [facility] [address] [place] [address] Maria Fernanda Asencio, [address] [place] [address] [address] [place] [address] Clinic Care Coordination - Follow-up [...] on filedocumented in this encounter Care Teams Sharepoint Engineer Relationship Specialty Start Date End Date Joseph Smith MD [address] [facility] 160 [place] [address] PCP - General 03 Teresita Jeong MD [address] [facility] [address] [place], [place] [address] Assigned OBGYN Provider 05/24/23 documented as of this encounter
--- OUTSIDE RECORDS SUMMARY | 2023-07-29 09:37 | XMS_ITS | Encounter Summary ---
Author Name Unknown Organization [facility] Address [address] [place] [address] Care Team Providers Care Garment Sorter Name Role Phone Joseph Smith MD Primary Care Provider [phone] Encounter Details Date Type Department Care Team [...] on filedocumented in this encounter Care Teams Garment Sorter Relationship Specialty Start Date End Date Joseph Smith MD [address] [place] [address] PCP - General 03 documented as of this encounter
--- OUTSIDE RECORDS SUMMARY | 2023-07-29 09:37 | XMS_ITS | Encounter Summary ---
Author Name Unknown Organization [place] Address [facility] [place] [address] Care Team Providers Care Manager Balance Name Role Phone Joseph Smith MD Primary Care Provider [phone] Kenna Silva MD Unavailable [phone] Reason for Referral * Diagnostic Imaging Ultrasound (Routine) - Pending Review Specialty Diagnoses / Procedures Referred By Contac t Referred To Contact Radiology. Diagnoses Encounter for follow-up ultrasound of anatomy Procedures [facility] US Comprehensive Single F/U Kenna Silva MD [address] [facility] [address] [address] Referral ID Status Reason Start Date Expiration Date V isits Requested Visits Authorized [id number] Pending Review 04/23/2023 04/22/2024 1 1 OMER SERVICE LEADER Reason for Visit * Diagnostic Imaging Ultrasound (Routine) - Pending Review Specialty Diagnoses / Procedures Referred By Contac t Referred To Contact Radiology. Diagnoses Encounter for follow-up ultrasound of anatomy Procedures [facility] US Comprehensive Single F/U Kenna Silva MD [address] [place] [address] Referral ID Status Reason Start Date Expiration Date V isits Requested Visits Authorized [id number] Pending Review 04/23/2023 04/22/2024 1 1 Encounter Details Date Type Department Care Team (Latest Contact Info) Description 05/14/2023 7:51 AM CUSTOMER SERVICE LEADER - 05/14/2023 11:59 PM CUSTOMER SERVICE LEADER Hospital Encounter [facility] Maternal Medicine Center [place] [address] [facility] [address] [place] [address] Kenna Silva MD [address] [place] [address] Carter Win MD [address] [place] [address] Teresita Jeong MD [address] [facility] [address] [place] [address] Encounter for follow-up ultrasound of [...] Procedure Name Priority Date/Time Associated Diagnosis Comments [facility] US COMPREHENSIVE SINGLE F/U Routine 05/14/2023 8:53 AM CUSTOMER SERVICE LEADER Encounter for follow-up ultrasound of anatomy documented in this encounter Results * [facility] US Comprehensive Single F/U (05/14/2023 8:53 AM CUSTOMER SERVICE LEADER) Anatomical Region Laterality Modality Ultrasound 05/14/2023 7:56 AM CUSTOMER SERVICE LEADER Impressions 05/14/2023 11:04 AM CUSTOMER SERVICE LEADER IMPRESSION ----- 1. Queen intrauterine at 22w [...] for gestational age. Narrative 05/14/2023 11:04 AM CUSTOMER SERVICE LEADER ?Comp Follow Up ----- Pat. Name: GABRIEL MORSE ? Study Date: ??05/14/2023 7:56am Pat. NO: ??[id number] ?Referring ??: GEMMA IRAHETA Site: ??[facility] ? Tool And Die Designer: Kitty Gray RDMS : ??2005 ?Age: ?? [...] 1 lb 1 ?oz EFW by ?Hadlock ([id number]) Head / Face / Neck Biometry: Hemodialysis Technician ? 6.7 ? mm CM ?6.1 ? [...] view. Aortic arch view. Ductal arch view. 8-iwlagq-bvmppwe view. ? Diaphragm. Abdomen ? Stomach. Kidneys. [...] complete weekly UA Dopplers/ surveillance locally in [place] and return to our clinic every 3 [...] medical record, and communicating with other health manager critical care and/or care coordination. Please see note for details. Procedure Note Teresita Jeong MD - 05/14/2023 Comp Follow Up ----- Pat. Name: GABRIEL MORSE Study Date: 05/14/2023 7:56am Pat. NO: [id number] Referring MD: GEMMA IRAHETA Site: [facility] Tool And Die Designer: Kitty Gray RDMS : 2005 Age: 18 [...] 1 lb 1 oz EFW by Hadlock ([id number]) Head / Face / Neck Biometry: Hemodialysis Technician 6.7 mm CM 6.1 mm Nasal bone 7.2 mm ANATOMY ----- The following structures appear normal: Head / Neck Cranium. Head size. Head shape.Lateral ventricles. Midline falx. Cavum septi pellucidi. Cerebellum.Cisterna magna. Thalami. Face Lips. Profile. Nose. Maxilla.Mandible. Orbits. Lens. Heart / Thorax 4-chamber view. RVOT view. LVOT view.Aortic arch view. Ductal arch view. 1-zvmiyl-wruwvww view. Diaphragm. Abdomen Stomach. Kidneys. Bladder. Spine [...] her complete weekly UA Dopplers/antenatalsurveillance locally in [place] and return to our clinic every 3 [...] electronic medical record, andcommunicating with other health manager critical care and/or carecoordination. Please see note for [...] anatomy documented in this encounter Care Teams Manager Balance Relationship Specialty Start Date End Date Joseph Smith MD [address] [facility] 160 [place] [address] PCP - General 03 Kenna Silva MD [address] [address] Assigned OBGYN Provider 05/03/23 documented as of this encounter
--- OUTSIDE RECORDS SUMMARY | 2023-07-29 09:37 | XMS_ITS | Encounter Summary ---
Author Name Unknown Organization [place] Address [address] [facility] [place] [address] Care Team Providers Care Forest Law And Policy Professor Name Role Phone Joseph Smith MD Primary Care Provider [phone] Kenna Silva MD Unavailable [phone] Reason for Visit * Reason Comments Genetic Counseling * Consultation (Routine: Next available opening) - Pending Review Specialty Diagnoses / Procedures Referred By Contac t Referred To Contact Diagnoses Abnormal ultrasound Teresita Jeong MD [address] [facility] [address] [place] [address] Referral ID Status Reason Start Date Expiration Date V isits Requested Visits Authorized [id number] Pending Review 05/14/2023 05/13/2024 1 1 Encounter Details Date Type Department Care Team (Late st Contact Info) Description 05/14/2023 8:45 AM LEGAL ANALYST Office Visit [facility] [place] [address] [facility] [address] [place] [phone] Teresita Jeong MD [address] [facility] [address] [place] [address] Maria Fernanda Asencio GC [address] [address] [place], [place] [phone] Abnormal ultrasound (Primary Dx) Social History Tobacco [...] Asencio GC - 05/14/2023 8:45 AM CST [facility] Genetic Counseling Consult Patient: Gabriel Morse Date of : 2005 Date of Service: 05/14/23 Gabriel was seen at the [facility] for genetic consultation atthe request of Dr. Teresita Jeong. The indication for genetic counseling is abnormal ultrasoundshowing intrauterine growth restriction. The patient was accompanied to this visit by their mother. The session was conducted in Korean. IMPRESSION/ PLAN 1. Gabriel had genetic screening earlier in this . Her non-invasive test was screen negative or low risk for screened conditions (Down syndrome, trisomy 18, trisomy 13, and sex chromosome aneuploidies). 2. During today's [facility] visit, Gabriel consented to a blood draw for cytomegalovirus (CMV) infectionstudies.Upon review on 05/19/23, Gabriel's order was not drawn. Shannon Polk MS, [facility] called herto see if she wished [...] include a follow-up CTG/NST and ultrasound with [facility]. The upcoming ultrasound has been scheduled [...] Intrauterine growth restriction (IUGR) was seen on [facility]'s ultrasound today. IUGR is commonly defined as [...] metabolism Single gene disorders (ex Arabella de Valdiiva syndrome) 10% of IUGR will also have [...] umbilical artery. Evaluation and referral to a stock analyst would be recommended if there are any [...] and include conditions like fragile X syndrome. [place] screening is another avenue through which some of these diagnoses may be made. About [place] Screening Carrier screening was not discussed today. If the patient is interested in further discussing the option of carrier screening, MFM would be available to assist in coordination if desired. It was a pleasure to be involved with Gabriel???s care. Yiwo-qf-anfd time of the meeting was 10 minutes. Maria Fernanda Asencio MS, [facility] Maternal Medicine Office: [phone] MFM: [phone] [facility] Patient seen, evaluated and discussed with the Genetic Counseling Director Of Surgery. I have verified the content of the note, which accurately reflects my assessment of the patient and the plan of care. Supervising Genetic Counselor Shannon Polk CA, [facility] Licensed Genetic Counselor [facility] Maternal Medicine [email or web address] Office: [phone] Pager [phone] MFM: [phone] L ANALYST documented in this encounter Plan of Treatment [...] screening documented in this encounter Care Teams Forest Law And Policy Professor Relationship Specialty Start Date End Date Joseph Smith MD [address] [facility] [address] [place] [phone] PCP - General 03 Kenna Silva MD [address] [place], [place] [address] Assigned OBGYN Provider 05/03/23 documented as of this encounter
--- OUTSIDE RECORDS SUMMARY | 2023-07-29 09:38 | XMS_ITS | Encounter Summary ---
Author Name Unknown Organization [place] Address [facility] [place] [address] Care Team Providers Care Echocardiography Radiology Technologist Name Role Phone Joseph Smith MD Primary Care Provider [phone] Reason for Referral * Diagnostic Imaging Ultrasound (Routine) - Pending Review Specialty Diagnoses / Procedures Referred By Jesse knox Referred To Contact Radiology. Diagnoses Encounter for follow-up ultrasound of anatomy Procedures [facility] US Comprehensive Single F/U Kenna Silva MD [address] [place] [address] Referral ID Status Reason Start Date Expiration Date V isits Requested Visits Authorized [id number] Pending Review 04/23/2023 04/22/2024 1 1 Reason for Visit * Reason Comments Ultrasound L2-BMI Encounter Details Date Type Department Care Team (Late st Contact Info) Description 04/23/2023 8:30 AM CDT Office Visit [facility] [place] [address] [facility] [address] [place] [address] Mikala Iraheta MD [facility] [address] [place] [address] Kenna Silva MD [address] [place] [address] Obesity in , antepartum (Primary [...] in the Maternal- Medicine Center at the [facility] today. For a detailed report of the ultrasound examination, please see the ultrasound report which can be found under the imaging tab. If you have questions regarding today's evaluation or if we can be of further service, please contact the Maternal- Medicine Center. Kenna Silva MD Assessment Coordinator, [place] ADMINISTRATOR Maternal- Medicine [phone] (Pager) documented in this encounter Miscellaneous Notes * Addendum Note - Sarah King RN - 04/23/2023 8:30 AM CDTAddended by: SARAH KING on: 04/23/2023 09:02 AM Modules accepted: Orders documented in this encounter Plan of Treatment Not on file documented as of this encounter Results * MFM US Comprehensive Single F/U (05/14/2023 8:53 AM SLUDGE CONTROL ATTENDANT) Anatomical Region Laterality Modality Ultrasound 05/14/2023 7:56 AM SLUDGE CONTROL ATTENDANT Impressions 05/14/2023 11:04 AM SLUDGE CONTROL ATTENDANT IMPRESSION ----- 1. Queen intrauterine at 22w [...] for gestational age. Narrative 05/14/2023 11:04 AM SLUDGE CONTROL ATTENDANT ?Comp Follow Up ----- Pat. Name: GABRIEL MORSE ? Study Date: ??05/14/2023 7:56am Pat. NO: ??[id number] ?Referring ??: MIKALA IRAHETA Site: ??[facility] ? System Software Programmer: Kitty Gray RDMS : ??2005 ?Age: ?? [...] 1 lb 1 ?oz EFW by ?Hadlock ([id number]-FL) Head / Face / Neck Biometry: Chuck Splitter ? 6.7 ? mm CM ?6.1 ? [...] view. Aortic arch view. Ductal arch view. 6-wccpev-almztec view. ? Diaphragm. Abdomen ? Stomach. Kidneys. [...] complete weekly UA Dopplers/ surveillance locally in [place] and return to our clinic every 3 [...] record, and communicating with other health care team coordinator scheduler and/or care coordination. Please see note for details. Procedure Note Teresita Jeong MD - 05/14/2023 Comp Follow Up ----- Pat. Name: GABRIEL MORSE Study Date: 05/14/2023 7:56am Pat. NO: [id number] Referring MD: MIKALA IRAHETA Site: [facility] System Software Programmer: Kitty Gray RDMS : 2005 Age: 18 [...] 1 lb 1 oz EFW by Hadlock (YDC-TO-WL-FL) Head / Face / Neck Biometry: Chuck Splitter 6.7 mm CM 6.1 mm Nasal bone 7.2 mm ANATOMY ----- The following structures appear normal: Head / Neck Cranium. Head size. Head shape.Lateral ventricles. Midline falx. Cavum septi pellucidi. Cerebellum.Cisterna magna. Thalami. Face Lips. Profile. Nose. Maxilla.Mandible. Orbits. Lens. Heart / Thorax 4-chamber view. RVOT view. LVOT view.Aortic arch view. Ductal arch view. 2-vardvc-heirhvp view. Diaphragm. Abdomen Stomach. Kidneys. Bladder. Spine [...] her complete weekly UA Dopplers/antenatalsurveillance locally in [place] and return to our clinic every 3 [...] medical record, andcommunicating with other health care team coordinator scheduler and/or carecoordination. Please see note for details. [...] for gestational age. Kenna Silva MD [facility] US ORDERABLE S documented in this encounter Visit Diagnoses Diagnosis Obesity in , antepartum- Primary Obesity complicating , childbirth, or the puerperium, antepartum condition or complication BMI 40.0-44.9, adult (H) Body Mass Index 40.0-44.9, adult Encounter for follow-up ultrasound of anatomy Encounter for follow-up ultrasound of anatomy documented in this encounter Care Teams Echocardiography Radiology Technologist Relationship Specialty Start Date End Date Joseph Smith MD [address] [facility] [address] [place] [phone] PCP - General 03 documented as of this encounter
--- OUTSIDE RECORDS SUMMARY | 2023-07-29 09:38 | XMS_ITS | Encounter Summary ---
Author Name Unknown Organization [place] Address [facility] [place] [address] Care Team Providers Care Soda Clerk Name Role Phone Joseph Smith MD Primary Care Provider [phone] Kenna Silva MD Unavailable [phone] Teresita Jeong MD Unavailable Encounter Details Date Type Department Care Team (Late st Contact Info) Description 2005 [place] [address] [place] [address] Joseph Smith MD [address] [place] [address] [facility] (Primary Dx) [...] Primary documented in this encounter Care Teams Soda Clerk Relationship Specialty Start Date End Date Joseph Smiht MD [address] [place] [address] PCP - General 03 Kenna Silva MD [address] [facility] [address] [place], [place] [address] Assigned OBGYN Provider 05/03/23 Teresita Jeong MD [address] [facility] [address] [place] [address] Assigned OBGYN Provider 05/24/23 documented as of this encounter
--- OUTSIDE RECORDS SUMMARY | 2023-07-29 09:38 | XMS_ITS | Encounter Summary ---
Author Name Unknown Organization [place] Address [facility] [place] [address] Care Team Providers Care Curator Name Role Phone Joseph Smith MD Primary Care Provider [phone] Reason for Referral * Diagnostic Imaging Ultrasound (Routine) - Pending Review Specialty Diagnoses / Procedures Referred By Jesse knox Referred To Contact Radiology. Diagnoses related condition, antepartum Procedures [facility] US Comprehensive Single Mikala Irahtea MD [facility] [address] [place] [address] Fax: Referral ID Status Reason Start Date Expiration Date V isits Requested Visits Authorized [id number] Pending Review 03/27/2023 03/26/2024 1 1 Reason for Visit * Diagnostic Imaging Ultrasound (Routine) - Pending Review Specialty Diagnoses / Procedures Referred By Jesse knox Referred To Contact Radiology. Diagnoses related condition, antepartum Procedures [facility] US Comprehensive Single Mikala Iraheta MD [facility] [address] [place] [address] Fax: Referral ID Status Reason Start Date Expiration Date V isits Requested Visits Authorized [id number] Pending Review 03/27/2023 03/26/2024 1 1 Encounter Details Date Type Department Care Team (Latest Contact Info) Description 04/23/2023 7:53 AM CDT - 04/23/2023 11:59 PM CDT Hospital Encounter [facility] [place] [address] [place] [address] Mikala Iraheta MD [facility] [address] [place] [address] Kenna Silva MD [address] [place] [address] related condition, antepartum Discharge Disposition: [...] Procedure Name Priority Date/Time Associated Diagnosis Comments [facility] COMPREHENSIVE SINGLE Routine 04/23/2023 8:44 AM CDT related condition, antepartum documented in this encounter Results * [facility] Comprehensive Single (04/23/2023 8:44 AM CDT) Anatomical [...] ? Study Date: ??04/23/2023 7:58am Pat. NO: ??[id number] ?Referring ??: MIKALA IRAHETA Site: ??[facility] ? Wig Comber: Kitty Gray RDMS : ??2005 ?Age: ?? [...] lb 10 ? oz EFW by ?Hadlock ([id number]-FL) Head / Face / Neck Biometry: Licensed Practical Vocational Nurse ? 7.6 ? mm CM ?5.0 ? [...] / Thorax ?4-chamber view. Aortic arch view. 0-pmmzhl-csdwsuz view. ? Diaphragm. Spine ?Sacral spine. Extremities [...] record, and communicating with other health care program resident and/or care coordination. Please see note for details. Procedure Note Kenna Silva MD - 04/23/2023 Comprehensive ----- Pat. Name: GABRIEL MORSE Study Date: 04/23/2023 7:58am Pat. NO: [id number] Referring MD: MIKALA IRAHETA Site: [facility] Wig Comber: Kitty Gray RDMS : 2005 Age: 18 [...] 0 lb 10 oz EFW by Hadlock ([id number]-[id number]-FL) Head / Face / Neck Biometry: Licensed Practical Vocational Nurse 7.6 mm CM 5.0 mm Nuchal fold [...] Heart / Thorax 4-chamber view. Aortic arch view.0-kqxqae-aczatgl view. Diaphragm. Spine Sacral spine. Extremities / [...] medical record, andcommunicating with other health care program resident and/or carecoordination. Please see note for details. [...] appears long and closed. Mikala Iraheta MD [facility] US ORDERABLE S documented in this encounter Visit Diagnoses Diagnosis related condition, antepartum documented in this encounter Care Teams Curator Relationship Specialty Start Date End Date Joseph Smith MD [address] [facility] [address] [place] [phone] PCP - General 03 documented as of this encounter
--- OUTSIDE RECORDS SUMMARY | 2023-07-29 09:38 | XMS_ITS | Encounter Summary ---
Author Name Unknown Organization [place] Address [address] [place] [address]. [place] [address] Care Team Providers Care Tractor Trailer Operator Name Role Phone Joseph Smith MD Primary Care Provider [phone] Encounter Details Date Type Department Care Team (Latest Contact Info) Description 03/26/[address] [facility] [address] [place] [address] Outside, Provider [facility] PROVIDER [...] on filedocumented in this encounter Care Teams Tractor Trailer Operator Relationship Specialty Start Date End Date Joseph Smith MD [address] [place] [address] PCP - General 03 documented as of this encounter
--- OUTSIDE RECORDS SUMMARY | 2023-07-29 09:38 | XMS_ITS | Encounter Summary ---
Author Name Unknown Organization [place] Address [facility] [place] [address] Care Team Providers Care Loan Officer Assistant Name Role Phone Joseph Smith MD Primary Care Provider [phone] Reason for Visit * Reason Comments Ultrasound L2-BMI Encounter Details Date Type Department Care Team (Late st Contact Info) Description 04/15/2023 PRE VISIT [facility] Medicine [facility] [place] [address] [place] [address] Shauna Ibrahim, RN Ultrasound (L2-BMI) [...] on filedocumented in this encounter Care Teams Loan Officer Assistant Relationship Specialty Start Date End Date Joseph Smith MD [address] [place] [phone] PCP - General 03 documented as of this encounter
--- OUTSIDE RECORDS SUMMARY | 2023-07-29 09:38 | XMS_ITS | Encounter Summary ---
Author Name Unknown Organization [place] Address [address] [place] [address]. [place] [address] Care Team Providers Care Hide Stretcher Hand Name Role Phone Joseph Smith MD Primary Care Provider [phone] Reason for Referral * Diagnostic Imaging Ultrasound (Routine) - Pending Review Specialty Diagnoses / Procedures Referred By Jesse knox Referred To Contact Radiology. Diagnoses related condition, antepartum Procedures [facility] US Comprehensive Single Mikala Iraheta MD [facility] [address] [place] [address] Fax: Referral ID Status Reason Start Date Expiration Date V isits Requested Visits Authorized [id number] Pending Review 03/27/2023 03/26/2024 1 1 * Consultation (Routine: Next available opening) - Pending Review Specialty Diagnoses / Procedures Referred By Jesse knox Referred To Contact Diagnoses related condition, antepartum Mikala Iraheta MD [facility] [address] [place] [address] Fax: Maternal Med [address] [address] Referral ID Status Reason Start Date Expiration Date V isits Requested Visits Authorized [id number] Pending Review 03/27/2023 03/26/2024 1 1 Question Answer Preferred Location: [facility] - [facility] KA[facility]LYNN 08/25/2023 Ultrasound Comprehensive US (>than 18 weeks GA) US PROC NONE MFM Issue OTHER (enter details in Comments) - BMI MFM Consultation (unrelated to Ultrasound findings): No Inflammatory Bowel Disease Clinic: Joint MFM and GI Consultation: No Chronic Kidney Disease: Joint MFM and Nephrology Consultation No Genetic Counseling Consultation: No fax Mikala Iraheta, [facility], Comments There is no height or weight [...] (Latest Contact Info) Description 03/27/[address] [facility] Maternal Medicine Center [address] [address] Mikala Iraheta MD [facility] [address] [place] [address] related condition, antepartum (Primary Dx) Social History [...] documented as of this encounter Results * [facility] US Comprehensive Single (04/23/2023 8:44 AM [...] ? Study Date: ??04/23/2023 7:58am Pat. NO: ??[id number] ?Referring ??MD: MIKLAA IRAHETA Site: ??[facility] ? Skip Hoist Engineer: Kitty Gray RDMS : ??2005 ?Age: ?? [...] lb 10 ? oz EFW by ?Hadlock ([id number]-[id number]-FL) Head / Face / Neck Biometry: Corrections Identification Technician ? 7.6 ? mm CM ?5.0 [...] / Thorax ?4-chamber view. Aortic arch view. 3-qwwmva-bccgkbb view. ? Diaphragm. Spine ?Sacral spine. Extremities [...] medical record, and communicating with other health client care representative and/or care coordination. Please see note for details. Procedure Note Kenna Silva MD - 04/23/2023 Comprehensive ----- Pat. Name: GABRIEL MORSE Study Date: 04/23/2023 7:58am Pat. NO: [id number] Referring MD: MIKALA IRAHETA Site: [facility] Skip Hoist Engineer: Kittypaul Gray RDMS : 2005 Age: 18 [...] 0 lb 10 oz EFW by Hadlock ([id number]-[id number]-FL) Head / Face / Neck Biometry: Corrections Identification Technician 7.6 mm CM 5.0 mm Nuchal [...] Heart / Thorax 4-chamber view. Aortic arch view.5-hlbbif-ilbivpc view. Diaphragm. Spine Sacral spine. Extremities / [...] electronic medical record, andcommunicating with other health client care representative and/or carecoordination. Please see note for details. [...] long and closed. Mikala Sonny Iraheta MD [facility] US ORDERABLE S documented in this encounter Visit Diagnoses Diagnosis related condition, antepartum- Primary related condition, antepartum documented in this encounter Care Teams Hide Stretcher Hand Relationship Specialty Start Date End Date Joseph Smith MD [address] [facility] [address] [place] [address] PCP - General 03 documented as of this encounter
--- NOTE | 2023-07-29 09:40 | CRLHL7_ITS ---
For Patients: As a result of the Cures Act, medical imaging exams and procedure reports are released immediately into your electronic medical record. You may view this report before your referring provider. If you have questions, please contact your health care provider. OB ULTRASOUND LMP: 12/05/2022. KAITLYNN by LMP: 09/11/2023. GA: 33 w, 5 d. Single. INDICATION: IUGR. CERVIX: Not visualized. POSITIONING: Vertex. AMNIOTIC FLUID: 3.7 cm. BIOPHYSICAL PROFILE: Total score: 8/8. Gross body movements: 2. tone: 2. Respiratory activity: 2. Amniotic fluid: 2. PLACENTA: Technique: Transabdominal. PLACENTA POSITION: Fundal, posterior, left wall. DOPPLER: heart rate: 142 bpm. Umbilical artery S/D: 2.9 IMPRESSION: 1. Normal biophysical profile score of 8/8. 2. Umbilical artery S/D ratio 2.9. Zane Mckinney M.D. Body/Diagnostic Radiologist [employer] [email or web address] KIRILL/shelia bass/Dictated by: Zane Mckinney MD @ 07/30/2023 3:34:00 PM (Electronically Signed)
== END 2023-07-29 09:35 | disposition home or self-care (01) ==
LOC: US 09:34
PROVIDERS: PCP Nurse Practitioner Family; Visit Provider Obstetrics & Gynecology
DX: O36.5930 Maternal care for other known or suspected poor fetal growth, third trimester, not applicable or unspecified (principal); Z3A.33 33 weeks gestation of pregnancy
CPT/HCPCS: 76819; 76820

== ENCOUNTER 2023-08-12 09:28 | Outpatient (CLI) | payer OTHER, SELFPAY ==
--- NOTE | 2023-08-12 09:45 | US_ITS ---
Final Report Patient: AMBER ABREU Facility:?[facility] Patient ID:?[id number] Site Patient ID:?[id number]. Site :?2005 Study:? OB Pelvis -08/12/2023 10:14:43 AM Ordering Physician:?SAVANNA MILLAN Final Report: INDICATION: Third trimester scan, evaluate growth. COMPARISON: 07/22/2023 TECHNIQUE: Real time mast scale imaging of the fetus was performed. Umbilical artery Doppler evaluation also performed. FINDINGS: Sonographic imaging demonstrates a single living intrauterine gestation. Fetus demonstrates a regular cardiac rate of 135 beats per minute. Fetus has a vertex position. The placenta lies fundal posterior. Amniotic fluid volume appears normal and there is a single deepest vertical pocket: 4.7 cm. The estimated weight is 2298gm which lies at the 10th %. On the prior OB ultrasound exam dated 07/22/2023 the estimated weight was at the 21st%. BPD 33rd percentile. HC 19 percentile. AC less than 3rd percentile. FL 50th percentile. The HC/AC ratio measures 1.13 range (0.93-1.11). Normal gross body movements, tone and respiratory activity. Normal end-diastolic velocity within the umbilical artery with SD ratio of 2.4. IMPRESSION: Sonographic gestational age 34 weeks 5 days and sonographic due date of 09/18/2023. Sonographic age is 1 week behind the clinical age. Estimated weight 10th percentile. Abdominal circumference less than 3rd percentile. Biophysical profile 01/28. Dictated by Nash Girard MD @ 08/12/2023 11:24:06 AM (Electronic Signature)
== END 2023-08-12 09:29 | disposition home or self-care (01) ==
LOC: US 09:29
PROVIDERS: PCP Nurse Practitioner Family; Visit Provider Obstetrics & Gynecology
DX: O36.5930 Maternal care for other known or suspected poor fetal growth, third trimester, not applicable or unspecified (principal); Z3A.34 34 weeks gestation of pregnancy
CPT/HCPCS: 76816; 76819; 76820

== ENCOUNTER 2023-08-12 10:30 | Outpatient (CLI) | payer OTHER, SELFPAY | END 2023-08-12 10:31 | disposition home or self-care (01) | LOC: NFLDREF 08-14 07:04 | PROVIDERS: PCP Nurse Practitioner Family; Referring Provider Nurse Practitioner Family; Visit Provider Obstetrics & Gynecology | DX: O36.5990 Maternal care for other known or suspected poor fetal growth, unspecified trimester, not applicable or unspecified (principal) | CPT/HCPCS: 87081; 87653 ==

== ENCOUNTER 2023-08-19 07:12 | Outpatient (CLI) | payer OTHER, SELFPAY ==
--- NOTE | 2023-08-19 07:15 | US_ITS ---
Patient: AMBER ABREU Facility:?[facility] Patient ID:?[id number] Site Patient ID:?[id number]. Site :?2005 Study:?US-OB Pelvis BPP W UA DOPPLER-08/19/2023 7:46:37 AM Ordering Physician:EUGENIE IRAHETA Final Report: INDICATION: IUGR. Thirty-six week 5 day gestation Technique: Multiple images from a biophysical profile submitted. Duplex Doppler measurements of the umbilical artery waveform obtained. FINDINGS: breathing movements: 2 Gross body movements: 2 tone: 2 Amniotic fluid volume: 2 Total: 8/8 Amniotic Fluid SDP: 6.4 cm. Heart rate is 141 beats per minute. Umbilical artery SD ratio 2.2 IMPRESSION: 1. Normal biophysical profile score of 8/8. 2. Umbilical artery SD ratio 2.2 Dictated by Zane Mckinney MD @ 08/19/2023 9:34:55 AM Signed by:?Zane Mckinney MD @08/19/2023 9:34:55 AM (Electronic Signature)
== END 2023-08-19 07:13 | disposition home or self-care (01) ==
LOC: US 07:13
PROVIDERS: PCP Nurse Practitioner Family; Visit Provider Obstetrics & Gynecology
DX: O36.5930 Maternal care for other known or suspected poor fetal growth, third trimester, not applicable or unspecified (principal); Z3A.36 36 weeks gestation of pregnancy
CPT/HCPCS: 76819; 76820

== ENCOUNTER 2023-08-19 15:44 | Outpatient (CLI) | payer OTHER, SELFPAY | END 2023-08-19 15:45 | disposition home or self-care (01) | PROVIDERS: PCP Nurse Practitioner Family; Visit Provider Obstetrics & Gynecology | DX: O36.5930 Maternal care for other known or suspected poor fetal growth, third trimester, not applicable or unspecified (principal); Z3A.36 36 weeks gestation of pregnancy | CPT/HCPCS: 82565; 82570; 84156; 84450; 84460; 84520 ==

== ENCOUNTER 2023-08-21 13:08 | Outpatient (CLI) | payer OTHER, SELFPAY ==
[2023-08-21] VITALS (26 sets, daily range): BP systolic 120; BP diastolic 74; PULSE 76–175; RESP 16; TEMP 36.6; O2SAT 95–98
--- NOTE | 2023-08-21 14:57 | US_ITS ---
Patient: AMBER ABREU Facility:?[facility] RIS Patient ID:?[id number] Site Patient ID:?[id number]. Site :?[id number] Study:?US-OB Pelvis BPP W UA DOPPLER-08/21/2023 4:23:57 PM Ordering Physician:?MEHDI SALDIVAR Final Report: INDICATION: Decreased movement, decelerations. TECHNIQUE: Ultrasound OB pelvis transabdominal. Real-time mast-scale imaging of the fetus was performed without stress testing. COMPARISON: Obstetric ultrasound dated 08/19/2023. FINDINGS: Sonographic imaging demonstrates a single living intrauterine gestation. Fetus demonstrates a regular cardiac rate of 126 beats per minute. Fetus has a cephalic orientation. The placenta is not well visualized on provided images. Amniotic fluid volume appears normal, single deepest pocket of 5.4 cm. breathing movements were not visualized. motion and tone were documented as observed. The umbilical arterial peak systolic velocity to end-diastolic velocity ratio was measured at 2.2, within normal limits. IMPRESSION: 1. Single viable intrauterine with a biophysical profile of 6/8. breathing movements were not visualized. Close clinical observation is recommended. 2. Umbilical arterial PSV to EDV ratio was measured at 2.2, within normal limits. 3. Placenta is not well visualized on provided images. Dictated by Eduardo Dalal MD @ 08/21/2023 6:13:54 PM Signed by:?Eduardo Dalal MD @08/21/2023 6:13:54 PM (Electronic Signature)
--- NOTE | 2023-08-21 18:54 | PC.OBNST ---
NST Note NST Note Start: 08/21/23 13:26 Freq: ONCE Status: Active Protocol: Document 08/21/23 16:30 JRMilton (Rec: 08/21/23 18:53 JRMilton [id number]) NST Note 1 Para (# of births) 0 EDC 09/11/23 Gestational Age In Weeks & Days 37 Weeks & 0 Days Patient Presented with Complaint(s) of Decreased movement Other Complaints IUGR, BPP 6/8 Reactive Yes Appropriate for Gestational Age Yes RN Zoe Muse RN Date 08/21/23 Reactive Yes Appropriate for Gestational Age Yes FÁTIMA St RN Date 08/21/23 OB NST charge Yes Complete NST Note via Write Note Yes The provider's electronic signature indicates the NST is reactive/appropriate for gestational age. *Note to provider: If an addendum is required, open the patient's chart and click on the note under the Nurse/Allied Health tab.
--- NOTE | 2023-08-27 15:05 | PC.OBNST ---
NST Note NST Note Start: 08/21/23 13:26 Freq: ONCE Status: Discharge Protocol: Document 08/21/23 16:30 JRMilton (Rec: 08/21/23 18:53 JRMilton [id number]) NST Note 1 Para (# of births) 0 EDC 09/11/23 Gestational Age In Weeks & Days 37 Weeks & 0 Days Patient Presented with Complaint(s) of Decreased movement Other Complaints IUGR, BPP 6/8 Reactive Yes Appropriate for Gestational Age Yes RN Zoe Muse RN Date 08/21/23 Reactive Yes Appropriate for Gestational Age Yes FÁTIMA St RN Date 08/21/23 OB NST charge Yes Complete NST Note via Write Note Yes The provider's electronic signature indicates the NST is reactive/appropriate for gestational age. *Note to provider: If an addendum is required, open the patient's chart and click on the note under the Nurse/Allied Health tab.
== END 2023-08-21 16:45 | disposition home or self-care (01) ==
LOC: OB OUT 13:09 → OB 13:09
PROVIDERS: PCP Nurse Practitioner Family; Visit Provider Obstetrics & Gynecology
DX: O36.8190 Decreased fetal movements, unspecified trimester, not applicable or unspecified (principal)
CPT/HCPCS: 59025; 76819; 76820; G0463

== ENCOUNTER 2023-08-22 09:14 | Inpatient (IN) | payer OTHER, SELFPAY ==
[2023-08-22] VITALS (52 sets, daily range): BP systolic 75–129; BP diastolic 42–70; PULSE 70–171; RESP 16–18; TEMP 36.4–36.9; O2SAT 81–100; BMI 42.3
[2023-08-22 10:18] LABS: Basophils Absolute Auto 0.01 K/uL (0.00-0.30); Basophils Percent Auto 0.1 % (0.0-3.0); Eosinophils Absolute Auto 0.07 K/uL (0.00-0.50); Eosinophils Percent Auto 0.9 % (0.0-7.0); Hematocrit 36.9 % (33.0-51.0); Hemoglobin* 12.4 gm/dL (12.0-16.0); Immature Granulocytes Pct Auto 1.8 %; Lymphocytes Percent Auto 18.4 % (20-44); Mean Corpuscular HGB Conc 34 gm/dL (32-36); Mean Corpuscular Hemoglobin 29 pg (26-34); Mean Corpuscular Volume 87 fL (80-100); Monocytes Percent Auto 5.3 % (0.0-11.0); Neutrophils Percent Auto 73.5 % (42.0-72.0); Platelet Count* 292 K/uL (140-440); RDW Coefficient of Variation % 13.2 % (11.5-15.5); Red Blood Count 4.23 m/uL (4.00-5.20); White Blood Count* 8.16 K/uL (4.50-11.00)
[2023-08-22 10:19] LABS: Immature Granulocytes Abs Auto 0.15 K/uL (0.00-0.30)
[2023-08-22] MEDS: LACTATED RINGERS 1000 ML 1,000 ML 500 ML IV (10:19)
[2023-08-22 10:36] LABS: Slide Review Reflex No
[2023-08-22] MEDS: ACETAMINOPHEN 500 MG TABLET 1000 MG PO (12:23)
--- NOTE | 2023-08-22 17:52 | PM.OBHPLI ---
OB - H&P: HPI Labor/Induction History of Present Illness Time Seen by Provider: 11:00 Date Seen: 08/22/23 Chief Complaint: Chief complaint: Maternity Indications for induction: other ( growth restriction) Narrative: Delayed documentation due to patient care. Gabriel is a 18 year old 1 para 0 at 37 weeks gestation by LMP, who presents for induction of labor in the setting of abnormal antepartum testing at term. is complicated by growth restriction, obesity and maternal mood disorder. Patient presented to OB triage yesterday reporting decreased movement, on NST she was noted to have a spontaneous deceleration. Subsequent BPP was 6/8, 2 off for breathing. She was discharged to home with recommendation to repeat BPP today with office visit. In preparation for her visit, I called Gabriel to discuss next steps. She notes she did have movement this morning. Denies any contractions, vaginal bleeding or leaking of fluids. We reviewed the option to either proceed with the previously recommended repeat BPP today versus consideration of induction of labor. After discussion risks and benefits, patient strongly desires induction of labor. On arrival, she affirmed the above history. Denies any regular/painful contractions, bleeding or leaking of fluids. Endorses baby is moving at it's baseline today. 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 BMI: 40.7 Hemoglobin A1c 5.1% Recommend daily baby aspirin starting at 12 weeks gestation to reduce risk preeclampsia Nutrition referral placed: Patient cancelled appt Early GDM testing before 20 weeks - 84 Recommended anesthesia referral later in Level 2 ultrasound 04/23/23: cephalic, posterior placenta without previa, 3VC, normal fluid, EFW 22%, AC 13%, normal visualized anatomy but unable to visualize multiple structures. Follos up US as below. Weekly BPP starting at 34 weeks Growth ultrasound at 28 and 34 weeks 2. Anxiety. Restarted citalopram 20 mg daily at 12 weeks. Started hydroxyzine prn at 21 weeks. 3. IUGR Level 2 ultrasound and follow-up anatomy scan with [facility] completed. [facility] recommended CMV testing: Negative IgG and IgM. [facility] recommends growth ultrasounds every 3 weeks and weekly antepartum testing starting at 24 weeks with umbilical artery Dopplers. *06/03/23: EFW: 783g, 20th percentile. AC: 13%. SDP: 4.1cm. Umbilical artery Doppler : 3.1 normal *07/22/23. EFW 1886 = 21%, AC 11%. SDP 3.8 cm, JANEY 11.9. BPP 8/8. Will cancel next two BPPs, but repeat US for growth in 3 weeks. *08/12/23: EFW 2298 g = 10%, AC <3%, BPD 33%, HC 19%, FL 50%. BPP 8/8. UA Doppler normal. Cervical ripening with Cook 08/27/23, IOL 08/28/23. 4. Covid positive. 33wks. out of quarantine 08/05 Flu: 07/01/2023 Tdap: 07/07/23 RSV: 07/22/23 COVID: Completed, not boosted. Recommended. Meds Home Medications and Allergies Home Medications Medication Instructions Recorded Confirmed Type docosahexaenoic acid 200 mg 200 mg PO DAILY 01/31/23 08/22/23 History capsule ( DHA) aspirin 81 mg chewable tablet 81 mg PO QDAY 03/26/23 08/22/23 History Allergies Allergy/AdvReac Type Severity Reaction Status Date / Time No Known Drug Allergies Allergy Verified 08/22/23 07:56 OB - H&P: Exam Physical Exam: Vital signs: Temp Pulse Resp BP Pulse Ox 97.6 F 70 16 123/66 99 08/22/23 14:50 08/22/23 15:47 08/22/23 14:50 08/22/23 15:47 08/22/23 14:41 Narrative: Physical exam: General: No acute distress Psych: Alert and oriented x3, full affect Heart: Regular rate and rhythm, no murmur rub or gallop Lungs: Clear to auscultation bilaterally Abdomen: Gravid. Otherwise soft and nontender. EFW 2298g by US on 08/12 with AC 3%ile. heart rate: Reactive NST. Baseline of 150 beats per minute, moderate variability, accelerations present, decelerations absent. Cervix: 1/50/-2 Presentation: Cephalic OB - Results Labs Labs: Short CBC 08/22/23 Range/Units 10:08 WBC 8.16 (4.50-11.00) K/uL Hgb 12.4 (12.0-16.0) gm/dL Hct 36.9 (33.0-51.0) % Plt Count 292 (140-440) K/uL OB - Problem Based A/P Additional Plan (1) IUGR (intrauterine growth restriction) affecting care of mother: Problem details: AC<9% Status: Acute (2) Anxiety: Problem details: On citalopram 20 mg and hydroxyzine prn. Previously on fluoxetine 10/2018 Status: Acute (3) BMI 40.0-44.9, adult: Status: Acute Plan Ms. Morse is a 18yo at 37w1d GA admitted for IOL in the setting of abnormal antepartum testing in the setting of growth restriction. course is otherwise complicated by obesity and maternal mood disorder. - Admit to labor and delivery - IOL started with cook catheter, plan pitocin augmentation - BT O+ - GBS negative - Pediatrics to attend delivery in the setting of growth restriction
[2023-08-22] MEDS: MORPHINE 10 MG/ML inj IM (18:18)
[2023-08-22] MEDS: hydrOXYzine pamoate 25 MG CAPSULE 100 MG PO (18:19)
[2023-08-22] MEDS: LACTATED RINGERS 1000 ML 1,000 ML 125 ML IV (18:41)
[2023-08-22] MEDS: OXYTOCIN 30 unit/500 ML in NS 30 UNIT/500 ML BAG IVPB (18:43)
[2023-08-23] VITALS (60 sets, daily range): BP systolic 90–140; BP diastolic 51–87; PULSE 64–106; RESP 16–17; TEMP 36.6–37.1; O2SAT 96–99
[2023-08-23] MEDS: LACTATED RINGERS 1000 ML 1,000 ML 125 ML IV ×3 (02:55→18:59)
--- NOTE | 2023-08-23 09:30 | P.OBPN_ITS ---
Subjective Time Seen by Provider: 07:40 Date Seen: 08/23/23 Narrative: The patient is comfortable this morning, not really bothered by occasional contractions. Pitocin at 9 mu/min. Objective Exam: General appearance: alert, cooperative female in no acute distress. Abdomen: gravid, nontender : last cervical exam was at 0600, 4/70/-2 per nursing Extremities: normal appearance, no edema Vital Signs: Last Vital Signs Temp 97.8 F 08/23/23 07:57 Pulse 65 08/23/23 07:57 Resp 16 08/23/23 07:57 BP 116/65 08/23/23 07:57 Pulse Ox 98 08/23/23 04:35 Pelvic Exam Dilation (cm): 4 Effacement (%): 70 Station: -2 Contractions Monitor mode: External Contraction Frequency: 2.5-5.5 minutes Contraction pattern: Irregular Contraction intensity: Mild Pitocin Rate (mU/min): 9 Assessment Assessment: induction ongoing Station: -2 Status: Category ll Heart Rate Baseline: 130 Physician/Ophthalmologist Variability: Moderate (6-25) Monitor Accelerations: Present Monitor Decelerations: None Plan Plan: Continue present management.
--- NOTE | 2023-08-23 14:19 | PM.OBPNL ---
Subjective Time Seen by Provider: 14:19 Date Seen: 08/23/23 Narrative: Patient feels mild contractions. Comfortable. Objective Vital Signs: Last Vital Signs Temp 98.2 F 08/23/23 11:51 Pulse 74 08/23/23 14:19 Resp 16 08/23/23 11:51 BP 115/65 08/23/23 14:19 Pulse Ox 98 08/23/23 04:35 Pelvic Exam Dilation (cm): 5 Effacement (%): 90 Station: -1 Contractions Monitor mode: External Contraction pattern: Regular Contraction intensity: Mild Pitocin Rate (mU/min): 17 Assessment Assessment: induction ongoing Station: -1 Amniotic Membrane Status: AROM Status: Category l Heart Rate Baseline: 130 Monitor Accelerations: Present Monitor Decelerations: None Plan Plan: Amniotomy performed, clear fluid. Continue pitocin infusion as needed.
[2023-08-23] MEDS: fentaNYL 100 MCG/2 ML inj IVP (16:04)
[2023-08-23] MEDS: ROPIVACAINE 0.2 % PF 10 ML INJ 20 MG EPIDURAL (16:39)
[2023-08-23] MEDS: LIDOCAINE 2% (PF) 5 ML VIAL EPIDURAL (16:39)
--- NOTE | 2023-08-23 16:46 | P.ANBPRC_ITS ---
[facility] Medical History (Updated 08/19/23 @ 08:32 by Mikala Ahn MD) History of recurrent ear infection ?Z86.69 - Personal history of other diseases of the nervous system and sense organs (ICD-10) Pilonidal cyst with abscess ?L05.01 - Pilonidal cyst with abscess (ICD-10) Paronychia Surgical History History of tonsillectomy ?Z90.89 - Acquired absence of other organs (ICD-10) History of removal of cyst ?Z98.890 - Other specified postprocedural states (ICD-10) History of adenectomy ?Z90.89 - Acquired absence of other organs (ICD-10) History of ear surgery ?Z98.890 - Other specified postprocedural states (ICD-10) Family History Father Diabetes High blood pressure Alcohol dependence High cholesterol Maternal Grandmother Diabetes Depression Liver disease Mother High blood pressure Depression Paternal Grandfather Alcohol dependence Myocardial infarction Paternal Grandmother Alcohol dependence Maternal Grandfather Alcohol dependence Social History (Updated 08/19/23 @ 08:33 by Mikala Ahn MD) Narrative: Lives with boyfriend in [place]. Single, SO. Non-smoker. No alcohol. No illicit drug use. Works at [employer] in [place]. What is your current living situation?: I presently have a place to live Problems where you live: no known problems In the past 12 months, utilities in danger of being shut off: no In past 12 months, lack of transportation kept you from medical appts, meetings, work, or getting things needed for daily living: no In the past 12 mos, have been you worried that your food would run out before you had money to buy more?: never true In the past 12 mos, the food you bought just didn't last and you didn't have money to buy more?: never true Smoking Status: Never smoker Second hand tobacco smoke exposure: No How often do you have a drink containing alcohol: never AUDIT-C Alcohol total score: 0 Non-prescribed substance use: denies use Caffeine: No How often does anyone, including family, friends and others, physically hurt you : never How often does anyone, including family, friends and others, insult or talk down to you: never How often does anyone, including family, friends and others, threaten you with harm: never How often does anyone, including family, friends and others, scream or curse at you: never Little interest or pleasure in doing things: not at all Feeling down, depressed, or hopeless: not at all Are you using contraception or practicing any form of control: Yes Meds Home Medications and Allergies Home Medications Medication Instructions Recorded Confirmed Type docosahexaenoic acid 200 mg 200 mg PO DAILY 01/31/23 08/22/23 History capsule ( DHA) aspirin 81 mg chewable tablet 81 mg PO QDAY 03/26/23 08/22/23 History Allergies Allergy/AdvReac Type Severity Reaction Status Date / Time No Known Drug Allergies Allergy Verified 08/22/23 07:56 Results Vital Signs Vital Signs: Last Vital Signs Temp 97.8 F 08/23/23 15:26 Pulse 88 08/23/23 16:44 Resp 16 08/23/23 15:26 BP 123/68 08/23/23 16:44 Pulse Ox 99 08/23/23 16:45 Weight: 111.7 kg Height: 162.56 cm Anesthesia Procedures Epidural Insertion Patient Location: OB Start Time: 16:15 Stop Time: 16:46 Start Date: 08/23/23 Stop Date: 08/23/23 Reason for Block: procedure for pain Patient Position: sitting Performed By: Andrzej Lou Preanesthetic Checklist: IV checked, risks and benefits discussed, surgical consent, monitors and equipment checked, pre-op evaluation, timeout performed and anesthesia consent Prep: chlorhexidine gluconate Monitoring: blood pressure monitoring, continuous pulse oximetry and heart rate Approach: midline Vertebral Space: lumbar (1-5) Epidural Technique: AYUSH air Needle Type: Tuohy needle Injection Technique: continuous catheter Needle gauge: 17 Needle Length (cm): 10 cm Needle Insertion Depth (cm): 7 Catheter Gauge: 19 Catheter Type: multi-orifice Catheter at skin depth (cm): 13 Test Dose Result: negative and lidocaine 1.5% with epinephrine 1 to 200,000
[2023-08-23] MEDS: ROPIVACAINE 0.2% 100 ml 100 ML 12 MG EPIDURAL (16:48)
--- NOTE | 2023-08-23 17:17 | PM.OBPNL ---
Subjective Time Seen by Provider: 17:17 Date Seen: 08/23/23 Narrative: Comfortable with epidural. Objective Vital Signs: Last Vital Signs Temp 97.8 F 08/23/23 15:26 Pulse 85 08/23/23 17:11 Resp 16 08/23/23 15:26 BP 123/65 08/23/23 17:11 Pulse Ox 99 08/23/23 16:45 Pelvic Exam Dilation (cm): 6 Effacement (%): 90 Station: -1 Contractions Monitor mode: External Contraction pattern: Regular Contraction intensity: Mild Pitocin Rate (mU/min): 9 Assessment Station: -1 (LOT position) Amniotic Membrane Status: AROM Status: Category l Heart Rate Baseline: 130 Monitor Accelerations: Present Monitor Decelerations: None Plan Plan: IUPC placed to more consistently monitor heart rate. Consider IUPC if contractions become difficult to trace. Maternal repositioning to encourage head rotation.
--- NOTE | 2023-08-23 19:19 | PM.OBPNL ---
Subjective Time Seen by Provider: 19:19 Date Seen: 08/23/23 Narrative: Epidural is very dense, patient not aware of contractions, nor can she move independently. Objective Vital Signs: Last Vital Signs Temp 97.9 F 08/23/23 18:13 Pulse 67 08/23/23 19:11 Resp 17 08/23/23 18:13 BP 119/62 08/23/23 19:11 Pulse Ox 99 08/23/23 16:45 Pelvic Exam Dilation (cm): 7 Effacement (%): 90 Station: 0 Comments: OP position Contractions Monitor mode: External Contraction pattern: Regular Contraction intensity: Mild Pitocin Rate (mU/min): 11 Assessment Station: 0 (LOT position) Amniotic Membrane Status: AROM Status: Category ll Heart Rate Baseline: 125 Monitor Accelerations: Present Monitor Decelerations: Variable Plan Plan: IUPC placed as well as new FSE. Continue current management.
--- NOTE | 2023-08-23 20:40 | PM.OBPNL ---
Subjective Time Seen by Provider: 20:41 Date Seen: 08/23/23 Narrative: Patient still comfortable. Objective Vital Signs: Last Vital Signs Temp 98.3 F 08/23/23 20:33 Pulse 75 08/23/23 20:26 Resp 16 08/23/23 20:33 BP 104/56 L 08/23/23 20:26 Pulse Ox 99 08/23/23 16:45 Pelvic Exam Dilation (cm): 8.5 Effacement (%): 100 Station: +1 Comments: Cervix palpable anteriorly and to the patient's left Contractions Monitor mode: Internal Contraction Frequency: q 2 minutes Contraction pattern: Regular Contraction intensity: Strong/Firm Pitocin Rate (mU/min): 11 Assessment Station: +1 (LOT position) Amniotic Membrane Status: AROM Status: Category ll Heart Rate Baseline: 125 District Customs Director Variability: Moderate (6-25) Monitor Accelerations: Present Monitor Decelerations: Variable Plan Plan: Reposition. Continue current management.
[2023-08-23] MEDS: PHENYLEPHRINE 100 MCG/ML SYRINGE IVP (21:18)
--- NOTE | 2023-08-23 22:16 | W.PM.OBVAGDE ---
OB Procedure Vag Delivery Mother Details Mother Details: The patient is a 18 year-old, 1, Para 0, admitted on 08/22/23 at 37 1/7 weeks gestation for induction of labor secondary to IUGR. : 1 Para: 0 Weeks Gestation: 37.2 Admission Date: 08/22/23 Additional Details Amniotic Membrane Status: AROM Amniotic Membrane Rupture Date: 08/23/23 Amniotic Membrane Rupture Time: 14:14 Amniotic Membrane Fluid Description: Clear Analgesia/Anesthesia Type: Epidural Waterbirth: No Pitcoin: Yes Intrapartal Events: Labor Induction Induction Method: Intracervical balloon catheter Delivery augmentation: rupture of membranes and pitocin Labor Onset: 17:00 Complete: 21:17 Pushin:23 Heart: heart tones during second stage were category 2, deep variable decelerations with good variability and return to baseline as patient was repositioned left lateral. Delivery Details Delivery Date: 08/23/23 Delivery Time: 21:47 Route of delivery: Gender: Male Viability: Alive; Heart Rate Present Position at Delivery: OA Delivery Details: Delivered over intact perineum via spontaneous vaginal delivery. Nuchal cord x1 reduced over the head prior to delivery of the shoulders. was briefly placed on maternal abdomen.? Cord was clamped and cut and was taken to the warmer for further evaluation, Peds provider called. Nose and mouth were bulb suctioned.? weight and apgars pending. Additional Details Shoulder Dystocia: No Placenta Delivery Time: 21:51 Placental Delivery Description: Spontaneous Delivery repair: Chromic (3-0) Procedure Done: Global Blood Loss: 100 Laceration: Vaginal - 2nd Degree Episiotomy Description: None Blood Loss Measurement Type: QBL Bakri Used: No Sponge/Need Count Correct: Yes Cord Vessel Description: 3 Vessels Event Summary Status: Mother and infant were stable after delivery. Cord gasses collected from clamped cord. Disposition: floor
[2023-08-24] MEDS: ACETAMINOPHEN 500 MG TABLET 1000 MG PO ×2 (01:35→12:01)
[2023-08-24 04:17] LABS: Rapid Plasma Reagin (RPR) Non Reactive (Non Reactive)
[2023-08-24 04:32] VITALS: BP 114/76; PULSE 81; RESP 16; TEMP 36.8
[2023-08-24 07:16] LABS: Hemoglobin* 11.7 gm/dL (12.0-16.0)
[2023-08-24 07:36] VITALS: BP 108/72; PULSE 79; RESP 16; TEMP 36.4; O2SAT 98
[2023-08-24] MEDS: IBUPROFEN 600 MG TABLET PO (07:45)
[2023-08-24] MEDS: DOCUSATE SODIUM 100 MG CAPSULE PO (07:46)
--- NOTE | 2023-08-24 11:00 | PM.OBDSVD1 ---
DS: Providers Provider Time Seen by Provider: 11:00 Date Seen: 08/24/23 Date of admission: 08/22/23 09:14 Primary care physician: Thea Sullivan APRN, SHOE LINING FITTER Admitting Clinician: Mayte Huizar MD Attending Physician on discharge: Alejandra Frye MD Date of Discharge: 08/24/23 DS: Diagnosis Discharge Diagnosis (1) Spontaneous vaginal delivery: Status: Acute Exam Const: Vital Signs, click to edit/add: Vital Signs - 24 hr 08/23/23 11:51 08/23/23 11:51 08/23/23 14:19 Temperature 98.2 F Pulse Rate 74 74 Pulse Rate [Blood Pressure Cuff] Respiratory Rate 16 Blood Pressure 123/61 115/65 Blood Pressure [Le ft Arm] Pulse [facility]ximetry [facility] 08/[facility]/23 14:19 08/23/23 15:26 08/23/23 15:27 Temperature 97.9 F 97.8 F Pulse Rate 76 Pulse Rate [Blood Pressure Cuff] Respiratory Rate 16 16 Blood Pressure 133/64 Blood Pressure [Le ft Arm] Pulse Oximetry [facility] 08/23/23 16:25 08/23/23 16:30 08/23/23 16:35 Temperature Pulse Rate 89 Pulse Rate [Blood Pressure Cuff] Respiratory Rate Blood Pressure 137/87 Blood Pressure [Le ft Arm] Pulse Oximetry 98 98 96 [facility] 08/23/23 16:39 08/23/23 16:40 08/23/23 16:42 Temperature Pulse Rate 92 91 Pulse Rate [Blood Pressure Cuff] Respiratory Rate Blood Pressure 140/81 H 134/67 Blood Pressure [Le ft Arm] Pulse Oximetry 98 [facility] 08/23/23 16:44 08/23/23 16:45 08/23/23 16:46 Temperature Pulse Rate 88 97 Pulse Rate [Blood Pressure Cuff] Respiratory Rate Blood Pressure 123/68 121/66 Blood Pressure [Le ft Arm] Pulse Oximetry 99 [facility]xygen [facility] 08/23/23 16:47 08/23/23 16:50 08/23/23 16:56 Temperature Pulse Rate 80 95 80 Pulse Rate [Blood Pressure Cuff] Respiratory Rate Blood Pressure 110/64 106/58 L 114/60 Blood Pressure [Le ft Arm] Pulse Oximetry [facility]xygen [facility] 08/23/23 17:02 08/23/23 17:07 08/23/23 17:11 Temperature Pulse Rate 77 69 85 Pulse Rate [Blood Pressure Cuff] Respiratory Rate Blood Pressure 131/70 122/65 123/65 Blood Pressure [Le ft Arm] Pulse Oximetry [facility]xygen [facility] 08/23/23 17:17 08/23/23 17:21 08/23/23 17:26 Temperature Pulse Rate 64 68 76 Pulse Rate [Blood Pressure Cuff] Respiratory Rate Blood Pressure 122/60 109/56 L 108/54 L Blood Pressure [Le ft Arm] Pulse Oximetry [facility] 08/23/23 17:31 08/23/23 17:36 08/23/23 17:41 Temperature 97.9 F Pulse Rate 74 78 72 Pulse Rate [Blood Pressure Cuff] Respiratory Rate 16 Blood Pressure 108/53 L 105/56 L 107/58 L Blood Pressure [Le ft Arm] Pulse Oximetry [facility] 08/23/23 17:56 08/23/23 18:13 08/23/23 18:13 Temperature 97.9 F Pulse Rate 78 75 Pulse Rate [Blood Pressure Cuff] Respiratory Rate 17 Blood Pressure 99/56 L 104/55 L Blood Pressure [Le ft Arm] Pulse Oximetry [facility]xygen [facility] 08/23/23 18:26 08/23/23 18:42 08/23/23 18:56 Temperature Pulse Rate 69 72 70 Pulse Rate [Blood Pressure Cuff] Respiratory Rate Blood Pressure 105/60 116/62 122/74 Blood Pressure [Le ft Arm] Pulse Oximetry [facility] 08/23/23 19:11 08/23/23 19:25 08/23/23 19:27 Temperature 98.2 F Pulse Rate 67 82 Pulse Rate [Blood Pressure Cuff] Respiratory Rate 16 Blood Pressure 119/62 114/57 L Blood Pressure [Le ft Arm] Pulse Oximetry [facility] 08/23/23 19:42 08/23/23 19:57 08/23/23 20:11 Temperature Pulse Rate 75 75 72 Pulse Rate [Blood Pressure Cuff] Respiratory Rate Blood Pressure 122/67 112/55 L 103/57 L Blood Pressure [Le ft Arm] Pulse Oximetry [facility]xygen [facility] 08/23/23 20:26 08/23/23 20:33 08/23/23 20:43 Temperature 98.3 F Pulse Rate 75 93 Pulse Rate [Blood Pressure Cuff] Respiratory Rate 16 Blood Pressure 104/56 L 109/59 L Blood Pressure [Le ft Arm] Pulse Oximetry Oxygen Delivery [facility] thod 08/23/23 20:56 08/23/23 21:11 08/23/23 21:32 Temperature 98.4 F Pulse Rate 78 86 Pulse Rate [Blood Pressure Cuff] Respiratory Rate 17 Blood Pressure 97/56 L 90/51 L Blood Pressure [Le ft Arm] Pulse Oximetry Oxygen Delivery Fl thod 08/23/23 21:51 08/23/23 21:52 08/23/23 21:52 Temperature 98.7 F 98.7 F Pulse Rate 84 Pulse Rate [Blood Pressure Cuff] Respiratory Rate 16 16 Blood Pressure 111/53 L Blood Pressure [Le ft Arm] Pulse Oximetry [facility] 08/23/23 22:07 08/23/23 22:08 08/23/23 22:22 Temperature Pulse Rate 84 Pulse Rate [Blood Pressure Cuff] Respiratory Rate 16 16 Blood Pressure 102/56 L Blood Pressure [Le ft Arm] Pulse Oximetry [facility] 08/23/23 22:23 08/23/23 22:38 08/23/23 22:38 Temperature Pulse Rate 81 80 Pulse Rate [Blood Pressure Cuff] Respiratory Rate 16 Blood Pressure 108/62 111/59 L Blood Pressure [Le ft Arm] Pulse Oximetry [facility] 08/23/23 22:53 08/23/23 22:53 08/23/23 23:08 Temperature Pulse Rate 77 81 Pulse Rate [Blood Pressure Cuff] Respiratory Rate 16 Blood Pressure 111/57 L 108/56 L Blood Pressure [Le ft Arm] Pulse Oximetry [facility] 08/23/23 23:08 08/23/23 23:23 08/23/23 23:23 Temperature Pulse Rate 77 Pulse Rate [Blood Pressure Cuff] Respiratory Rate 16 17 Blood Pressure 107/55 L Blood Pressure [Le ft Arm] Pulse Oximetry Oxygen Delivery Fl thod 08/23/23 23:38 08/23/23 23:38 08/24/23 04:32 Temperature 98.3 F 98.2 F Pulse Rate 101 H Pulse Rate [Blood Pressure Cuff] 81 Respiratory Rate 16 Blood Pressure 116/59 L Blood Pressure [Le ft Arm] 114/76 Pulse Oximetry [facility] Room Air 08/24/23 07:36 Temperature 97.5 F L Pulse Rate Pulse Rate [Blood Pressure Cuff] 79 Respiratory Rate 16 Blood Pressure Blood Pressure [Le ft Arm] 108/72 Pulse Oximetry 98 Oxygen Delivery Me thod Room Air Documenting provider has reviewed patient's vital signs: yes Common normals: no apparent distress and oriented x3 General appearance: cooperative and comfortable HENMT: Common normals: normocephalic Head and scalp: normocephalic Resp: Common normals: normal respiratory effort Cardio: Common normals: regular rate and regular rhythm Rate: regular rate Rhythm: regular rhythm GI: Common normals: soft to palpation and non-tender Inspection: normal to inspection Palpation: soft : Uterus: U/3 and firm Lochia: small Uterus palpation: uterus nontender Extremity: Common normals: normal to inspection and no pedal edema Neuro: Common normals: oriented x3 Psych: Common normals: affect normal OB - DS: Summary Hospital Course Hospital Course: The patient is a 18 year old G 1 now P 1001 that was admitted to the Center on 08/22/23 for induction of labor secondary to IUGR. She had an uncomplicated vaginal delivery. She delivered a viable male infant, who needed transfer to [place] early this morning for respiratory issues. He reportedly remains on CPAP on 21% oxygen. She is planning to breastfeed, and started pumping this morning. the patient has done well. Bleeding is normal. Peripartum Data delivery method: Vaginal Laceration description: Vaginal - 2nd Degree complications: none [facility] Gender: Male Discharge Plan: Transferred Status at Discharge Functional status at discharge: independent ambulation Overall status at discharge: patient is back to baseline Time Spent with Patient Time attestation: Total time spent providing and/or coordinating discharge services: Time spent: Less than 30 minutes Discharge Plan Discharge Disposition: Home, Self-Care Date of Admission: 08/22/23 09:14 Attending Provider on Discharge: Alejandra Frye Primary Care Provider: Thea Sullivan Condition: Stable Anticipated Discharge Date/Time: 08/24/23 11:06 Discharge Medications: New docusate sodium 100 mg Capsule 100 mg PO DAILY Qty: 30 0RF ibuprofen 600 mg Tablet 600 mg PO Q6H PRNQty: 30 0RF Continued DHA 200 mg capsule 200 mg PO DAILY citalopram 20 mg tablet 20 mg PO QDAY Qty: 90 2RF Rx Instructions: start at 10mg daily x 7d then increase to 20mg daily thereafter aspirin 81 mg tablet,chewable 81 mg PO QDAY hydroxyzine pamoate 25 mg capsule 25 - 50 mg PO QPM Qty: 60 0RF Discharge Orders: Discharge Order (Routine); Ordered 08/24/23 Ordered By: Alejandra Frye Patient Education: OB Over the Counter Medication Information, OB Vaginal/Breast Feeding Activity Level: Activity as Tolerated Discharge Diet: Regular Follow Up Appointments: Thea Sullivan APRN, SHOE LINING FITTER [Primary Care Provider] - Forms: [facility] Inst[facility]
--- NOTE | 2023-08-24 11:49 | PM.ANPOST ---
Post Anesthesia Note Post Anesthesia Note Patient seen: Inpatient Respiratory Status: adequate Cardiovascular Status: adequate Mental Status: baseline Pain: adequate Temp: baseline Anesthetic awareness: N/A Complications: none Follow care: none
== END 2023-08-24 12:00 | disposition home or self-care (01) | DRG 807 ==
PROVIDERS: Obstetrics & Gynecology; Admitting Provider Obstetrics & Gynecology; PCP Nurse Practitioner Family; Visit Provider Obstetrics & Gynecology
DX: O36.5930 Maternal care for other known or suspected poor fetal growth, third trimester, not applicable or unspecified (principal); Z37.0 Single live birth; O36.8130 Decreased fetal movements, third trimester, not applicable or unspecified; O70.1 Second degree perineal laceration during delivery; O99.344 Other mental disorders complicating childbirth; F41.9 Anxiety disorder, unspecified; Z3A.37 37 weeks gestation of pregnancy
CPT/HCPCS: 01967; 36415; 59200; 85018; 85025; 86592; 86850; 86900; 86901; 88307; A9270; C1726; J2270; J2371; J2795; J3010; J7120

== ENCOUNTER 2024-03-09 17:09 | Outpatient (CLI) | payer OTHER, SELFPAY ==
--- OUTSIDE RECORDS SUMMARY | 2024-03-09 17:12 | XMS_ITS | Encounter Summary ---
Author Organization [facility] Address [address] [address] Phone Care Team Providers Care Gimp Buttonhole Machine Operator Name Role Phone Unavailable Primary Care Provider Unavailabl e Encounter Details Date Type Department Care Team (Latest Contact Info) Description 02/10/2024 Travel Social History Tobacco Use Types Packs/Day Years Used Date Smoking Tobacco: Never Assessed PHQ-2 Answer Date Recorded PHQ-2 Total 0 02/10/2024 Sex and Gender Information Value Date Recorded Sex Assigned at Not on file Gender Identity Not on file Sexual Orientation Not on file Job Start Date Occupation Industry Not on file Not on file Not on file documented as of this encounter Plan of Treatment Not on file documented as of this encounter Visit Diagnoses Not on filedocumented in this encounter
--- OUTSIDE RECORDS SUMMARY | 2024-03-09 17:12 | XMS_ITS | Encounter Summary ---
Author Organization [facility] Address [address] [address] Phone Care Team Providers Care Information Security Name Role Phone Unavailable Primary Care Provider Unavailabl e Reason for Visit * Reason Comments Rash Itchy rash to finger tips. Started Friday after doing her nails at home. Has happened before and antibiotics helped. Encounter Details Date Type Department Care Team (Late st Contact Info) Description 02/10/2024 11:40 AM CDT Office Visit [facility] [address] [place], [place] [address] [place] [address] [place] [address] Dyshidrotic eczema (Primary Dx) Social History Tobacco Use Types [...] Sign Reading Time Taken Comments Blood Pressure 121/77 02/10/2024 11:49 AM CDT Pulse 83 02/10/2024 11:49 AM CDT Temperature 36.6 ??C (97.8 ??F) 02/10/2024 1 1:49 AM CDT Respiratory Rate 18 02/10/2024 11:4 9 AM CDT Oxygen Saturation 98% 02/10/2024 11: 49 AM CDT Inhaled Oxygen Concentration - - Weight 108.6 kg (239 lb 6.7 oz) 024 11:49 AM CDT Height - - Body Mass Index - - documented in this encounter Ordered Prescriptions Prescription Sig Dispensed Refills Start Date End Da te predniSONE (Deltasone) 20 MG tablet Take 1 Tablet by mouth one time a day. Take with food.3 tabs for 2 days, 2 tabs for 2 days,1 tab for 2 days, half tab for 2 days 14 Tablet 02/10/2024 documented in this encounter Progress Notes * Goyo Valerio MD - 02/10/2024 11:40 AM CDT Patient Gabriel Morse Chief Complaint Rash (Itchy rash to finger tips. Started Friday after doing her nails at home. Has happened before and antibiotics helped. ) 19-year-old female comes in because of rash on her fingers she has had this before she said at 1 point time she it says she did treat this with an antibiotic but I could find no evidence in her chartanywhere that this was ever done what she is describing now is a scaly fissured somewhat punctate papular rash on the tips of all of her fingers there is no involvement of the rest of her hand interdigital spaces or her flexor surfaces of her arms or legs no history of allergies or asthma HPI Review of Systems No Known Allergies Patient's Medications New Prescriptions PREDNISONE (DELTASONE) 20 MG TABLET Take 1 Tablet by mouth one time a day. Take with food.3 tabs for 2 days, 2 tabs for 2 days,1 tab for 2 days, half tab for 2 days Previous Medications No medications on file Modified Medications No medications on file Discontinued Medications No medications on file Past Medical History: No past medical history on file. Past Surgical History: No past surgical history on file. Family History: Her family history is not on file. Social History: She Exam: Vitals: 02/10/24 1149 BP: 121/77 Pulse: 83 Temp: 36.6 ??C (97.8 ??F) TempSrc: Tympanic Resp: 18 Weight: 239 lb 6.7 oz (108.6 kg) SpO2: 98% Physical Exam Vitals are stable and afebrile skin exam again shows this fissured dry papular rash on the tips of her fingers most of all of her fingers no evidence of any secondary infection Lab Results: No results found for this visit on 02/10/24. Lab results are reviewed as documented in the electronic chart. Rad Results: No results found. Radiographs interpreted by the ED physician will be over-read by a radiologist and the results willbe available in the electronic chart. Other Results: Course: Procedures: Procedures @[id number]@ Assessment: Dyshidrotic eczema Plan: Given that the I cannot see that the and ointment as treatment would work with his on the tips of her fingers and she is washing her hands I think we better to do an oral treatment with a short course of prednisone continue with lotions and she can try topical [id number] steroid creams to that area if she can and things should be involved in improving and if not to follow-up with her primary documented in this encounter Plan of Treatment Not on file documented as of this encounter Visit Diagnoses Diagnosis Dyshidrotic eczema- Primary Dyshidrosis documented in this encounter
--- OUTSIDE RECORDS SUMMARY | 2024-03-09 17:12 | XMS_ITS | Clinical Summary ---
Author Organization [facility] Address [address] [address] Phone Care Team Providers Care Ground Operations Crew Member Name Role Phone Unavailable Primary Care Provider Unavailabl e Allergies No known active allergies Medications Medication Sig Dispensed Refills Start Date End Date Status predniSONE (Deltasone) 20 MG tablet Take 1 Tablet by mouth one time a day. Take with food.3 tabs for 2 days, 2 tabs for 2 days,1 tab for 2 days, half tab for 2 days 14 Tablet 02/10/2024 Active Encounters Date Type Department Care Team Description 02/10/2024 11:40 AM CDT Office Visit [facility] [address] [place], [place] [address] Goyo Valerio MD Dyshidrotic eczema (Primary Dx) 02/10/2024 Travel from Last 3 Months Social History Tobacco Use Types Packs/Day Years Used Date Smoking Tobacco: Never Assessed PHQ-2 Answer Date Recorded PHQ-2 Total 0 02/10/2024 Sex and Gender Information Value Date Recorded Sex Assigned at Not on file Gender Identity Not on file Sexual Orientation Not on file Job Start Date Occupation Industry Not on file Not on file Not on file Obstetrics History Last Filed Vital Signs Vital Sign Reading [...] - - Body Mass Index - - Plan of Treatment Health Maintenance Due Date Last Done Comments Cervical Cancer Screening 2003 Last pap w/ HPV Testing 2003 Last pap w/o HPV Testing 2003 CHILD AND TEEN CHECKUP AGE 3 -20 YRS 2006 COVID-19 Vaccine (#1) 01/12/2008 HPV Vaccine (Standing Order) (1 - 3-dose series) 2018 Chlamydia Screening 2019 Hepatitis B Vaccine (Standin g Order) (1 of 3 - 19+ 3-dose series) 2022 PERTUSSIS (Standing Order) 2022 TETANUS (Standing Order) 2022 Influenza Vaccine Seasonal (Standing Order) (#1) 2024 Pneumococcal/PCV20 Vaccine: Pediatrics (2-5 yrs) and At-Risk Patients (6-64 yrs) (Standing Order) Aged Out No longer eligible b ased on patient's age to complete this topic
--- OUTSIDE RECORDS SUMMARY | 2024-03-09 17:13 | XMS_ITS | Encounter Summary ---
Author Organization [facility] Address [address] [place] [address] Care Team Providers Care Retinal Surgeon Name Role Phone Joseph Smith MD Primary Care Provider [phone] Kenna Silva MD Unavailable [phone] Teresita Jeong MD Unavailable Encounter Details Date Type Department Care Team (Late st Contact Info) Description 2003 [place] [address] [place] [address] [place] [address] Joseph Smith MD [address] [place] [address] [facility] (Primary Dx) [...] Primary documented in this encounter Care Teams Retinal Surgeon Relationship Specialty Start Date End Date Joseph Smith MD [address] [place] [address] PCP - General 03 Kenna Silva MD [address] [place], [place] [address]E [facility] [address] [place], [place] [address] Assigned OBGYN Provider 05/03/23 Teresita Jeong MD [address] [place] [address] [address] [place] [address] Assigned OBGYN Provider 05/24/23 documented as of this encounter
--- OUTSIDE RECORDS SUMMARY | 2024-03-09 17:13 | XMS_ITS | Referral Summary ---
Author Organization [facility] Address [address] [place] [address] Care Team Providers Care Contact Representative Name Role Phone Joseph Smith MD Primary Care Provider [phone] BurnTeresita MD Unavailable Allergies Active Allergy Reactions Criticality [...] without lesion of renal medullary necrosis 2003 Immunizations Name Administration Dates Next Due Comvax [...] Comments Blood Pressure 110/69 05/14/2023 11:37 AM DIRECTOR HOUSEKEEPING Pulse 77 05/14/2023 11:37 AM DIRECTOR HOUSEKEEPING Temperature 36.6 ??C (97.8 ??F) 10/10/2007 9:00 AM CD T Respiratory Rate 40 2003 8:00 AM CDT Oxygen Saturation 99% 05/14/2023 11:37 AM DIRECTOR HOUSEKEEPING Inhaled Oxygen Concentration - - Weight 19.1 kg (42 lb) 10/10/2007 9:00 AM CDT Height 108.6 cm (3' 6.75) 10/10/2007 9:00 AM CD T Body Mass Index 16.16 10/10/2007 9:00 AM CDT Plan of Treatment Not on file Care Teams Contact Representative Relationship Specialty Start Date End Date Joseph Smith MD [address] [place] [address] PCP - General 03 Teresita Jeong MD [address] [facility] [address] [place], [place] [address] Assigned OBGYN Provider 05/24/23
--- OUTSIDE RECORDS SUMMARY | 2024-03-09 17:13 | XMS_ITS | Clinical Summary ---
Author Organization [facility] Address [address] [place] [address] Care Team Providers Care Agronomy Internship Name Role Phone Joseph Smith MD Primary Care Provider [phone] BurnTeresita MD Unavailable Allergies Active Allergy Reactions [...] Comments Blood Pressure 110/69 05/14/2023 11:37 AM OPTICAL EFFECTS LAYOUT PERSON Pulse 77 05/14/2023 11:37 AM OPTICAL EFFECTS LAYOUT PERSON Temperature 36.6 ??C (97.8 ??F) 10/10/2007 9:00 AM CD T Respiratory Rate 40 2003 8:00 AM CDT Oxygen Saturation 99% 05/14/2023 11:37 AM OPTICAL EFFECTS LAYOUT PERSON Inhaled Oxygen Concentration - - Weight 19.1 [...] HIV SCREENING 2018 HEPATITIS C SCREENING 2021 PHQ-2 (once per calendar year) 2023 PAP 01/12/2024 COVID-19 Vaccine ( season) 2024 08/26/2020, 08/05/2020 INFLUENZA VACCINE (#1) 2024 04/25/2004, 2003 DTAP/TDAP/TD IMMUNIZATION (7 - Td or Tdap) 01/31/2025 01/31/2015, 08/06/2007, 08/06/2007, Additional history exists HEPATITIS B IMMUNIZATION Completed 004, 2003, 2003 Pneumococcal Vaccine: Pediatrics (0 to 5 Years) and At-Risk Patients (6 to 64 Years) Aged Out 02/01/2004, 2003, 2003 No longer eligible based on patient's age to complete this topic HPV IMMUNIZATION Completed 01/21/2017, 01/31/2015 MENINGITIS IMMUNIZATION Completed 02/15/20 20, 01/31/2015, 01/31/2015 RSV MONOCLONAL ANTIBODY Aged Out No l onger eligible based on patient's age to complete this topic Care Teams Agronomy Internship Relationship Specialty Start Date End Date Joseph Smith MD [address] [facility] [address] [place] [address] PCP - General 03 Teresita Jeong MD [address] [facility] [address] [place] [address] Assigned OBGYN Provider 05/24/23
== END 2024-03-09 17:10 | disposition home or self-care (01) ==
PROVIDERS: PCP Nurse Practitioner Family; Visit Provider Nurse Practitioner Family
DX: R63.5 Abnormal weight gain (principal)
CPT/HCPCS: 80053; 84443; 85025

== ENCOUNTER 2024-09-24 09:08 | Day surgery (SDC) | payer OTHER, SELFPAY ==
[2024-09-24] VITALS (11 sets, daily range): BP systolic 93–131; BP diastolic 59–85; PULSE 50–76; RESP 16; TEMP 36.2–36.7; O2SAT 93–100; BMI 40.8
[2024-09-24] MEDS: LACTATED RINGERS 1000 ML 1,000 ML 100 ML IV (09:15)
[2024-09-24 09:26] LABS: Ur HCG Qualitative* Negative (Negative)
[2024-09-24] MEDS: SODIUM CHLORIDE 0.9 % (FLUSH) 10 ML SYRINGE IVF (09:38)
[2024-09-24] MEDS: CIPROFLOX/DEXAMETH OTIC (nc) 4 DROP EAR-BOTH (11:22)
--- NOTE | 2024-09-24 11:36 | W.PM.ENTPROC ---
Procedure Note Date of procedure: 09/24/24 Procedure: Preoperative diagnosis: bilateral recurrent acute otitis media serous otitis media, bilateral hearing loss presumed conductive Postoperative diagnosis same Procedure bilateral myringotomy with tubes The patient was brought to the operating room and prepped and draped in the usual fashion after general mask anesthesia was induced. Left ear canal was inspected an inferior radial myringotomy incision was made. Fluid was aspirated. A T tube was trimmed and then was placed without difficulty. Ciprodex drops were then placed in the ear canal. This was repeated on the right side in an identical fashion. The patient tolerated the procedure well and was taken to recovery in satisfactory condition blood loss was 0 mL Surgeon: Minesh Chaney MD
--- NOTE | 2024-09-24 11:39 | P.ANES_ITS ---
Anesthesia Charges Start Date/Time Anesthesia Start Date: 09/24/24 Anesthesia Start Time: 11:11 Stop Date/Time Anesthesia Stop Date: 09/24/24 Anesthesia Stop Time: 11:40 Coding CPT Codes CPT Codes: ANESTH EAR SURGERY - 39895 ([id number]) P3 - PATIENT W/SEVERE SYS DISEASE, QZ - ACADEMIC COORDINATOR SVC W/O RESTAURANT EXPEDITOR BY
--- NOTE | 2024-09-24 11:39 | W.ANESCHARGE ---
Anesthesia Charges Start Date/Time Anesthesia Start Date: 09/24/24 Anesthesia Start Time: 11:11 Stop Date/Time Anesthesia Stop Date: 09/24/24 Anesthesia Stop Time: 11:40 Coding CPT Codes CPT Codes: ANESTH EAR SURGERY - 13473 ([id number]) P3 - PATIENT W/SEVERE SYS DISEASE, QZ - ENTRY LEVEL SALES CONSULTANT SVC W/O HOT KETTLE TENDER BY
[2024-09-24] MEDS: fentaNYL 100 MCG/2 ML inj 50 MCG IVP ×2 (11:50→11:55)
[2024-09-24] MEDS: IBUPROFEN 200 MG TABLET PO (12:20)
[2024-09-24] MEDS: ACETAMINOPHEN 325 MG TABLET PO (12:20)
--- NOTE | 2024-09-24 12:36 | SUR.PHASEII ---
The ear drops brought by the patient (Ciprodex) are examined and I have determined that they are labeled by the patient's pharmacy for this patient as prescribed by the surgeon.? The bottle is intact, recently obtained, and appear to be correct.
== END 2024-09-24 12:38 | disposition home or self-care (01) ==
LOC: OR 09:09
PROVIDERS: Nurse Anesthetist, Certified Registered; PCP Nurse Practitioner Family; Visit Provider Otolaryngology
PROC: (CPT 69420; principal; 2024-09-24 10:45)
DX: H65.06 Acute serous otitis media, recurrent, bilateral (principal); H90.0 Conductive hearing loss, bilateral
CPT/HCPCS: 69436; 00120; 81025; A9270; J2704; J3010; J7120

== ENCOUNTER 2025-04-18 15:07 | Outpatient (CLI) | payer OTHER, SELFPAY ==
[2025-04-20 15:46] LABS: Pap Test Digital Imaging Done
== END 2025-04-18 15:08 | disposition home or self-care (01) ==
LOC: NFLDREF 15:09
PROVIDERS: PCP Nurse Practitioner Family; Visit Provider Physician Assistant
DX: Z12.4 Encounter for screening for malignant neoplasm of cervix (principal)
CPT/HCPCS: 87624; 87625; 88141; 88142; 88175